=== PATIENT | female | born 1960 | race Caucasian/White ===

== ENCOUNTER 2016-08-15 13:25 | Outpatient (RCR) | payer OTHER ==
--- OUTSIDE RECORDS SUMMARY | 2016-05-20 14:02 | XMS REPORT | Continuity of Care Document ---
Author Author [facility] Organization [facility] Address Unknown Phone Unavailable Care Team Providers Care Sharepoint Application Architect Name Role Phone Marquis Castanon PCP [phone] Source Comments Some departments are not documenting in the electronic medical record. If you do not see the information that you expected, contact Release of Information in the Health Information Management department at [phone] for further assistance in locating additional records.[facility] Active Allergies and Adverse Reactions No Known Allergies Current Medications Prescription Sig. Disp. Refills Start End Date Status Date exemestane (AROMASIN) 25 Take 25 mg by mouth Active mg tab daily. Take after a meal. losartan (COZAAR) 25 mg Take 25 mg by mouth Active tablet daily. PARoxetine (PAXIL) 20 mg Take 20 mg by mouth twice Active tablet daily. MULTIVITS-MIN/IRON/FA/LUT Take by mouth daily. Active EIN (CENTRUM SILVER WOMEN PO) [id number] PO Take 333 mg by mouth Active daily. Active Problems Not on file Social History Tobacco Use Types Packs/Day Years Used Date Passive Smoke Exposure - Never Smoker Alcohol Use Drinks/Week oz/Week Comments Yes 1 Glasses of 6.6 wine 10 Cans of beer Last Filed Vital Signs Vital Sign Reading Time Taken Blood Pressure 123/84 05/31/2015 12:45 PM CDT Pulse 82 05/31/2015 12:45 PM CDT Temperature 36.7 C (98.1 F) 05/31/2015 12:45 PM CDT Respiratory Rate 16 05/31/2015 12:45 PM CDT Height 1.608 m (5' 3.31") 05/31/2015 12:45 PM CDT Weight 82.918 kg (182 lb 12.8 05/31/2015 12:45 PM CDT oz) Body Mass Index 32.07 05/31/2015 12:45 PM CDT Oxygen Saturation 97% 05/31/2015 12:45 PM CDT Plan of Care Health Maintenance Due Date Last Done Comments Physical (Comprehensive) 1968 Exam Pertussis Vaccine 1972 Tetanus Vaccine 1978 Cervical Cancer Screening 1982 Breast Cancer Screening 2001 Colorectal Cancer 11/11/2011 Screening Influenza Vaccine 04/11/2016 Results from Last 3 Months Not on file
[2016-07-18 10:12] LABS: BASOPHILS # (AUTO) 0.1 10^3/uL (0.0-0.1); BASOPHILS % (AUTO) 1 % (0-10); EOSINOPHILS # (AUTO) 0.1 10^3/uL (0.0-0.3); EOSINOPHILS % (AUTO) 2 % (0-10); LYMPHOCYTES # (AUTO) 1.3 X 10^3 (1.0-4.0); LYMPHOCYTES % (AUTO) 25 % (12-44); MEAN CORPUSCULAR HEMOGLOBIN 31 PG (25-34); MEAN CORPUSCULAR HGB CONC 35 G/DL (32-36); MEAN CORPUSCULAR VOLUME 90 FL (80-99); MEAN PLATELET VOLUME 8.6 FL (7.4-10.4); MONOCYTES # (AUTO) 0.5 X 10^3 (0.0-1.0); MONOCYTES % (AUTO) 9 % (0-12); NEUTROPHILS # (AUTO) 3.3 X 10^3 (1.8-7.8); NEUTROPHILS % (AUTO) 63 % (42-75); PLATELET COUNT 264 10^3/uL (130-400); RED BLOOD COUNT 4.78 10^6/uL (4.35-5.85); RED CELL DISTRIBUTION WIDTH 12.7 % (10.0-14.5); WHITE BLOOD COUNT 5.2 10^3/uL (4.3-11.0)
[2016-07-18 10:50] LABS: ALANINE AMINOTRANSFERASE 41 U/L (0-55); ALBUMIN 4.2 G/DL (3.2-4.5); ANION GAP 11 MMOL/L (5-14); ASPARTATE AMINO TRANSFERASE 48 U/L (5-34); BILIRUBIN,TOTAL 0.6 MG/DL (0.1-1.0); BLOOD UREA NITROGEN 16 MG/DL (7-18); BUN/CREATININE RATIO 20; CALCIUM 9.4 MG/DL (8.5-10.1); CARBON DIOXIDE 22 MMOL/L (21-32); CHLORIDE 106 MMOL/L (98-107); GFR ESTIMATED > 60; GLUCOSE 128 MG/DL (70-105); SODIUM 139 MMOL/L (135-145); TOTAL PROTEIN 7.2 G/DL (6.4-8.2)
[~2016-08-15 13:25] MED LIST: CALC-656 PO; CYCL10TA9 PO; HYDR-3730 PO; LOSA25TA5 PO; MULT-608 PO; NF-ESOM40C PO; OMEP-10 PO; OXYC-12 PO; PARO20TA57 PO; PARO40TA2 PO; SCR1T1 PO
== END 2016-08-18 | disposition home or self-care (01) ==
LOC: ONC 13:25
PROVIDERS: ATTEND Internal Medicine Hematology & Oncology
DX: C50.312 Malignant neoplasm of lower-inner quadrant of left female breast (principal); M81.0 Age-related osteoporosis without current pathological fracture; I10 Essential (primary) hypertension; R00.0 Tachycardia, unspecified; E66.9 Obesity, unspecified; Z68.32 Body mass index [BMI] 32.0-32.9, adult; Z17.0 Estrogen receptor positive status [ER+]; Z79.811 Long term (current) use of aromatase inhibitors; Z79.899 Other long term (current) drug therapy; Z92.3 Personal history of irradiation; Z45.2 Encounter for adjustment and management of vascular access device
CPT/HCPCS: 36591; 80053; 85025; 96523; 99213

== ENCOUNTER → 2016-11-18 | Outpatient (CLI) | payer OTHER ==
--- NOTE | 2016-11-18 14:19 | Diagnostic Imaging Report ---
Bilateral diagnostic mammogram. The current study was also evaluated with a Computer Aided Detection (CAD) system. INDICATION: Followup lumpectomy site fullness. FINDINGS: In the medial aspect of the left breast, there is a lumpectomy site with mass-like asymmetry seen. This is slightly less prominent compared to the prior exams with smooth margins and is most likely related to postoperative seroma. Background heterogeneously dense parenchyma is seen in both breasts with no definite change. There is a biopsy clip anterior to the lumpectomy site in the medial aspect of the left breast. IMPRESSION: Stable mammographic findings with likely postoperative seroma in the medial aspect of the left breast. Annual screening mammogram recommended. ACR BI-RADS Category 2: Benign findings. Result letter will be mailed to the patient. Note: At least 10% of breast cancer is not imaged by mammography. Dictated by: Dictated on workstation # [id number]
== END ==
LOC: RAD 09:19
PROVIDERS: ATTEND Internal Medicine Hematology & Oncology
DX: C50.312 Malignant neoplasm of lower-inner quadrant of left female breast (principal); N61.0 Mastitis without abscess; N64.89 Other specified disorders of breast; Z98.890 Other specified postprocedural states
CPT/HCPCS: 77066

== ENCOUNTER 2016-12-06 10:26 | Outpatient (RCR) | payer OTHER ==
--- OUTSIDE RECORDS SUMMARY | 2016-09-13 10:20 | XMS REPORT | Continuity of Care Document ---
Author Author [facility] Organization [facility] Address Unknown Phone Unavailable Care Team Providers Care Walnut Dehydrator Operator Name Role Phone Marquis Castanon PCP [phone] Source Comments Some departments are not documenting in the electronic medical record. If you do not see the information that you expected, contact Release of Information in the Health Information Management department at [phone] for further assistance in locating additional records.[facility] Active Allergies and Adverse Reactions No [...] daily. Active EIN (CENTRUM SILVER WOMEN PO) [id number] PO Take 333 mg by mouth Active [...]
[2016-10-10 09:49] LABS: BASOPHILS # (AUTO) 0.1 10^3/uL (0.0-0.1); BASOPHILS % (AUTO) 1 % (0-10); EOSINOPHILS # (AUTO) 0.2 10^3/uL (0.0-0.3); EOSINOPHILS % (AUTO) 3 % (0-10); LYMPHOCYTES # (AUTO) 1.3 X 10^3 (1.0-4.0); LYMPHOCYTES % (AUTO) 27 % (12-44); MEAN CORPUSCULAR HEMOGLOBIN 31 PG (25-34); MEAN CORPUSCULAR HGB CONC 34 G/DL (32-36); MEAN CORPUSCULAR VOLUME 91 FL (80-99); MEAN PLATELET VOLUME 8.9 FL (7.4-10.4); MONOCYTES # (AUTO) 0.5 X 10^3 (0.0-1.0); MONOCYTES % (AUTO) 10 % (0-12); NEUTROPHILS # (AUTO) 2.9 X 10^3 (1.8-7.8); NEUTROPHILS % (AUTO) 59 % (42-75); PLATELET COUNT 247 10^3/uL (130-400); RED BLOOD COUNT 4.69 10^6/uL (4.35-5.85); WHITE BLOOD COUNT 4.9 10^3/uL (4.3-11.0)
[2016-10-10 10:24] LABS: ALANINE AMINOTRANSFERASE 26 U/L (0-55); ALBUMIN 4.5 G/DL (3.2-4.5); ANION GAP 11 MMOL/L (5-14); ASPARTATE AMINO TRANSFERASE 37 U/L (5-34); BILIRUBIN,TOTAL 0.6 MG/DL (0.1-1.0); BLOOD UREA NITROGEN 14 MG/DL (7-18); BUN/CREATININE RATIO 16; CALCIUM 9.4 MG/DL (8.5-10.1); CARBON DIOXIDE 24 MMOL/L (21-32); CHLORIDE 106 MMOL/L (98-107); CREATININE SERUM 0.86 MG/DL (0.60-1.30); GFR ESTIMATED > 60; GLUCOSE 114 MG/DL (70-105); POTASSIUM 4.1 MMOL/L (3.6-5.0); SODIUM 141 MMOL/L (135-145); TOTAL PROTEIN 7.2 G/DL (6.4-8.2)
[~2016-12-06 10:26] MED LIST changes: +DENOSUMAB 60 MG/1 ML (PROLIA) SQ SCH
== END 2016-12-12 | disposition home or self-care (01) ==
LOC: ONC 10:26
PROVIDERS: ATTEND Internal Medicine Hematology & Oncology
DX: C50.312 Malignant neoplasm of lower-inner quadrant of left female breast (principal); M81.0 Age-related osteoporosis without current pathological fracture; I10 Essential (primary) hypertension; R00.0 Tachycardia, unspecified; E66.9 Obesity, unspecified; Z68.32 Body mass index [BMI] 32.0-32.9, adult; Z17.0 Estrogen receptor positive status [ER+]; Z79.811 Long term (current) use of aromatase inhibitors; Z79.899 Other long term (current) drug therapy; Z92.3 Personal history of irradiation; Z45.2 Encounter for adjustment and management of vascular access device
CPT/HCPCS: 36591; 80053; 85025; 96372; 96523; 99213

== ENCOUNTER 2017-01-30 09:54 | Outpatient (RCR) | payer OTHER ==
[~2017-01-30 09:54] MED LIST changes: -DENOSUMAB 60 MG/1 ML (PROLIA) SQ SCH
== END 2017-03-12 15:49 | disposition home or self-care (01) ==
LOC: ONC 09:54
PROVIDERS: ATTEND Internal Medicine Hematology & Oncology
DX: C50.312 Malignant neoplasm of lower-inner quadrant of left female breast (principal); M81.0 Age-related osteoporosis without current pathological fracture; I10 Essential (primary) hypertension; R00.0 Tachycardia, unspecified; E66.9 Obesity, unspecified; Z68.32 Body mass index [BMI] 32.0-32.9, adult; Z17.0 Estrogen receptor positive status [ER+]; Z79.811 Long term (current) use of aromatase inhibitors; Z79.899 Other long term (current) drug therapy; Z92.3 Personal history of irradiation; Z45.2 Encounter for adjustment and management of vascular access device
CPT/HCPCS: 96523

== ENCOUNTER 2017-04-24 13:05 | Outpatient (RCR) | payer OTHER | END 2017-05-10 | disposition home or self-care (01) | LOC: ONC 13:05 | PROVIDERS: ATTEND Internal Medicine Hematology & Oncology | DX: C50.312 Malignant neoplasm of lower-inner quadrant of left female breast (principal); M81.0 Age-related osteoporosis without current pathological fracture; N61.0 Mastitis without abscess; N64.89 Other specified disorders of breast; I10 Essential (primary) hypertension; R00.0 Tachycardia, unspecified; E66.9 Obesity, unspecified; Z68.32 Body mass index [BMI] 32.0-32.9, adult; Z17.0 Estrogen receptor positive status [ER+]; Z79.811 Long term (current) use of aromatase inhibitors; Z79.899 Other long term (current) drug therapy; Z92.3 Personal history of irradiation; Z45.2 Encounter for adjustment and management of vascular access device; Z98.890 Other specified postprocedural states | CPT/HCPCS: 96523 ==

== ENCOUNTER → 2017-07-31 | Outpatient (CLI) | payer OTHER ==
--- NOTE | 2017-07-31 12:23 | Diagnostic Imaging Report ---
EXAMINATION: DEXA scan. INDICATION: Osteopenia. TECHNIQUE: Bone mineral density estimated based on dual energy radiography over the lumbar spine and femoral necks, was performed. FINDINGS: The lumbar spine T-score is -2.1. This is 6% increased density measurement compared to previous exam of 02/01/2016. The femoral neck T score is -0.7 on the left and -1 on the right side. This is 1.8% increased density measurement compared to prior exam. IMPRESSION: Osteopenia. Dictated by: Dictated on workstation # [id number]
== END ==
LOC: RAD 09:06
PROVIDERS: ATTEND Internal Medicine Hematology & Oncology
DX: M85.88 Other specified disorders of bone density and structure, other site (principal); C50.312 Malignant neoplasm of lower-inner quadrant of left female breast
CPT/HCPCS: 77080

== ENCOUNTER 2017-08-08 13:23 | Outpatient (RCR) | payer OTHER ==
[2017-05-14 11:16] LABS: BASOPHILS # (AUTO) 0.1 10^3/uL (0.0-0.1); BASOPHILS % (AUTO) 1 % (0-10); EOSINOPHILS # (AUTO) 0.2 10^3/uL (0.0-0.3); EOSINOPHILS % (AUTO) 2 % (0-10); HEMATOCRIT 43 % (35-52); HEMOGLOBIN 14.5 G/DL (11.5-16.0); LYMPHOCYTES # (AUTO) 1.5 X 10^3 (1.0-4.0); LYMPHOCYTES % (AUTO) 22 % (12-44); MEAN CORPUSCULAR HEMOGLOBIN 31 PG (25-34); MEAN CORPUSCULAR HGB CONC 34 G/DL (32-36); MEAN CORPUSCULAR VOLUME 91 FL (80-99); MEAN PLATELET VOLUME 8.8 FL (7.4-10.4); MONOCYTES # (AUTO) 0.5 X 10^3 (0.0-1.0); MONOCYTES % (AUTO) 8 % (0-12); NEUTROPHILS # (AUTO) 4.6 X 10^3 (1.8-7.8); NEUTROPHILS % (AUTO) 67 % (42-75); PLATELET COUNT 265 10^3/uL (130-400); RED BLOOD COUNT 4.68 10^6/uL (4.35-5.85); RED CELL DISTRIBUTION WIDTH 12.2 % (10.0-14.5); WHITE BLOOD COUNT 6.8 10^3/uL (4.3-11.0)
[2017-05-14 11:37] LABS: ALANINE AMINOTRANSFERASE 25 U/L (0-55); ALBUMIN 4.1 GM/DL (3.2-4.5); ALKALINE PHOSPHATASE 71 U/L (40-136); BILIRUBIN,TOTAL 0.6 MG/DL (0.1-1.0); BUN/CREATININE RATIO 19; CALCIUM 9.8 MG/DL (8.5-10.1); CARBON DIOXIDE 26 MMOL/L (21-32); CHLORIDE 103 MMOL/L (98-107); CREATININE SERUM 0.75 MG/DL (0.60-1.30); GFR ESTIMATED > 60; GLUCOSE 105 MG/DL (70-105); POTASSIUM 3.9 MMOL/L (3.6-5.0); SODIUM 137 MMOL/L (135-145); TOTAL PROTEIN 7.4 GM/DL (6.4-8.2)
[~2017-08-08 13:23] MED LIST changes: +DENOSUMAB 60 MG/1 ML (PROLIA) CANCER CTR SQ SCH
[2017-08-08 13:56] LABS: BASOPHILS # (AUTO) 0.1 10^3/uL (0.0-0.1); BASOPHILS % (AUTO) 1 % (0-10); EOSINOPHILS # (AUTO) 0.2 10^3/uL (0.0-0.3); EOSINOPHILS % (AUTO) 3 % (0-10); HEMATOCRIT 43 % (35-52); HEMOGLOBIN 14.7 G/DL (11.5-16.0); LYMPHOCYTES # (AUTO) 1.7 X 10^3 (1.0-4.0); LYMPHOCYTES % (AUTO) 28 % (12-44); MEAN CORPUSCULAR HEMOGLOBIN 32 PG (25-34); MEAN CORPUSCULAR HGB CONC 34 G/DL (32-36); MEAN CORPUSCULAR VOLUME 93 FL (80-99); MONOCYTES # (AUTO) 0.5 X 10^3 (0.0-1.0); MONOCYTES % (AUTO) 8 % (0-12); NEUTROPHILS # (AUTO) 3.8 X 10^3 (1.8-7.8); NEUTROPHILS % (AUTO) 61 % (42-75); PLATELET COUNT 258 10^3/uL (130-400); RED BLOOD COUNT 4.65 10^6/uL (4.35-5.85); RED CELL DISTRIBUTION WIDTH 13.1 % (10.0-14.5); WHITE BLOOD COUNT 6.2 10^3/uL (4.3-11.0)
[2017-08-08 14:24] LABS: ALANINE AMINOTRANSFERASE 49 U/L (0-55); ALBUMIN 4.3 GM/DL (3.2-4.5); ALKALINE PHOSPHATASE 79 U/L (40-136); BILIRUBIN,TOTAL 0.5 MG/DL (0.1-1.0); BUN/CREATININE RATIO 19; CALCIUM 10.4 MG/DL (8.5-10.1); CARBON DIOXIDE 28 MMOL/L (21-32); CHLORIDE 103 MMOL/L (98-107); GFR ESTIMATED > 60; GLUCOSE 87 MG/DL (70-105); POTASSIUM 3.9 MMOL/L (3.6-5.0); SODIUM 142 MMOL/L (135-145); TOTAL PROTEIN 7.7 GM/DL (6.4-8.2)
== END 2017-08-12 | disposition home or self-care (01) ==
LOC: ONC 13:23
PROVIDERS: ATTEND Internal Medicine Hematology & Oncology
DX: C50.312 Malignant neoplasm of lower-inner quadrant of left female breast (principal); M81.0 Age-related osteoporosis without current pathological fracture; I10 Essential (primary) hypertension; R00.0 Tachycardia, unspecified; E66.9 Obesity, unspecified; Z68.32 Body mass index [BMI] 32.0-32.9, adult; Z17.0 Estrogen receptor positive status [ER+]; Z79.811 Long term (current) use of aromatase inhibitors; Z79.899 Other long term (current) drug therapy; Z92.3 Personal history of irradiation; Z45.2 Encounter for adjustment and management of vascular access device; N61.0 Mastitis without abscess; N64.89 Other specified disorders of breast; Z98.890 Other specified postprocedural states
CPT/HCPCS: 36591; 80053; 85025; 96372; 96523

== ENCOUNTER 2017-09-04 05:30 | Outpatient (CLI) | payer OTHER ==
[~2017-09-04] VITALS: Ht 162.6 cm; Wt 78.9 kg
[~2017-09-04 05:30] MED LIST changes: -DENOSUMAB 60 MG/1 ML (PROLIA) CANCER CTR SQ SCH
[2017-09-04] MEDS ORDERED: CALC-927 PO (09:32)
[2017-09-04] MEDS ORDERED: EXEM25TA4 PO (09:32)
[2017-09-04] MEDS ORDERED: LOSA25TA21 PO (09:32)
[2017-09-04] MEDS ORDERED: MULT1CAP27 PO (09:32)
[2017-09-04] MEDS ORDERED: METO-387 PO (09:32)
[2017-09-04] MEDS ORDERED: VNL37.5T PO (09:32)
[2017-09-04] MEDS ORDERED: CALC-250 PO (09:32)
== END 2017-09-04 09:36 ==
LOC: PREOP 05:30
PROVIDERS: ATTEND Surgery
DX: Z01.818 Encounter for other preprocedural examination (principal); Z12.11 Encounter for screening for malignant neoplasm of colon

== ENCOUNTER 2017-09-10 10:38 | Day surgery (SDC) | payer OTHER ==
[~2017-09-10] VITALS: Ht 162.6 cm; Wt 78.9 kg
[~2017-09-10 10:38] MED LIST changes: +CALC-250 PO; +CALC-927 PO; +EXEM25TA4 PO; +LOSA25TA21 PO; +METO-387 PO; +MULT1CAP27 PO; +VNL37.5T PO
--- NOTE | 2017-09-10 10:44 | Progress Note-Pre Operative ---
Pre-Operative Progress Note H&P Reviewed The H&P was reviewed, patient examined and no changes noted. Date Seen by Provider: Sep 10, 2017 Time Seen by Provider: 10:40 Date H&P Reviewed: Sep 10, 2017 Time H&P Reviewed: 10:40 Pre-Operative Diagnosis: screening, family hx ca MEENA PUENTES MD Sep 10, 2017 10:44 am
--- NOTE | 2017-09-10 10:44 | Conscious Sedation/ASA ---
Conscious Sedation Pre-Proced Time Reviewed: 10:40 ASA Class: 2 Airway Mallampati Classification: (craig appropriate class) I. II. III, IV Lungs Heart ASA score ASA 1: a normal healthy patient ASA 2: a patient with a mild systemic disease (mid diabetes, controlled hypertension, obesity ASA 3: a patient with a severe systemic disease that limits activity (angina , COPD, prior Myocardial infarction) ASA 4: a patient with an incapacitating disease that is a constant threat to life (CHF, renal failure) ASA 5: a moribund patient not expected to survive 24 hrs. (ruptured aneurysm) ASA 6: a declared brain patient whose organs are being harvested. For emergent operations, add the letter E after the classification Grade 2 Sedation Plan: Analgesia, Amnesia, Plan communicated to team members, Discussed options with patient/fam, Discussed risks with patient/fam Note The patient is an appropriate candidate to undergo the planned procedure, sedation, and anesthesia. The patient immediately re-assessed prior to indication. MEENA PUENTES MD Sep 10, 2017 10:44 am
--- OUTSIDE RECORDS SUMMARY | 2017-09-10 10:54 | XMS REPORT | Clinical Summary ---
Author Author [facility] Organization [facility] Address Unknown Phone Unavailable Care Team Providers Care Pie Icer Machine Name Role Phone Carolina Castanon MD PCP Audra Vuong BUSINESS DEVELOPMENT ASSISTANT-[facility] [employer] Unavailable Stefani Valles MD Unavailable Source Comments Some departments are not documenting in the electronic medical record. If you do not see the information that you expected, contact Release of Information in the Health Information Management department at [phone] for further assistance in locating additional records.[facility] Allergies No Known Allergies Current Medications Prescription Sig. [...] daily. Active EIN (CENTRUM SILVER WOMEN PO) [id number] PO Take 333 mg by mouth Active daily. Active Problems Not on file Family History Medical History Relation Name Comments Depression Brother Diabetes Brother Hypertension Brother Depression Father High Cholesterol Father Arthritis-osteo Maternal Aunt Arthritis-rheumatoid Maternal Aunt Cancer-Breast Maternal Aunt Diabetes Maternal Aunt Depression Maternal Grandfather Cancer Maternal Grandmother Arthritis-osteo Maternal Uncle Arthritis-rheumatoid Maternal Uncle Arthritis-osteo Mother Arthritis-rheumatoid Mother Depression Mother Hypertension Mother Arthritis-osteo Paternal Grandmother Hypertension Paternal Grandmother Cancer-Colon Paternal Uncle Depression Paternal Uncle Arthritis-osteo Sister Depression Sister Relation Name Status Comments Brother Father Maternal Aunt Maternal Grandfather Maternal Grandmother Maternal Uncle Mother Paternal Grandmother Paternal Uncle Sister Social History Tobacco Use Types Packs/Day Years Used Date Passive Smoke Exposure - Never Smoker Alcohol Use Drinks/Week oz/Week Comments Yes 1 Glasses of 6.6 wine 10 Cans of beer Sex Assigned at Date Recorded Not on file Last Filed Vital Signs Vital Sign Reading Time Taken Blood Pressure 123/84 05/31/2015 12:45 PM CDT Pulse 82 05/31/2015 12:45 PM CDT Temperature 36.7 C (98.1 F) 05/31/2015 12:45 PM CDT Respiratory Rate 16 05/31/2015 12:45 PM CDT Oxygen Saturation 97% 05/31/2015 12:45 PM CDT Inhaled Oxygen - - Concentration Weight 82.9 kg (182 lb 12.8 oz) 05/31/2015 12:45 PM CDT Height 160.8 cm (5' 3.31") 05/31/2015 12:45 PM CDT Body Mass Index 32.07 05/31/2015 12:45 PM CDT Plan of Treatment Health Maintenance Due Date Last Done Comments HEPATITIS C SCREENING 1961 PHYSICAL (COMPREHENSIVE) 1968 EXAM PERTUSSIS VACCINE 1972 TETANUS VACCINE 1978 CERVICAL CANCER SCREENING 11/11/1991 BREAST CANCER SCREENING 2001 COLORECTAL CANCER 11/11/2011 SCREENING INFLUENZA VACCINE 03/11/2017 Results Not on filefrom Last 3 Months
--- OUTSIDE RECORDS SUMMARY | 2017-09-10 10:57 | XMS REPORT | CCD ---
Author Author Carolina Castanon Organization Carolina Castanon MD, [facility] Address [address] [place] [address] Phone Care Team Providers Care Wax Bleacher Name Role Phone Carolina Castanon PP Unavailable CCM Unavailable Summary Purpose Interface Exchange Insurance Providers Payer name Policy type / Coverage type Covered libertarian ID Effective Begin Date Effective End Date [employer] [id number] 2017 Unknown Family history Grandmother Diagnosis Age At Onset Heart disease Unknown Sister Diagnosis Age At Onset Depression Unknown Osteoporosis Unknown Son Diagnosis Age At Onset No Family Disease Entered N/A Mother Diagnosis Age At Onset Arthritis Unknown Hypertension Unknown Osteoporosis Unknown Depression Unknown Father Diagnosis Age At Onset Depression Unknown Brother Diagnosis Age At Onset Depression Unknown Daughter Diagnosis Age At Onset No Family Disease Entered N/A Social History Social History Element Codes Description Effective Dates Employment Unknown 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 Unknown Has never used illegal drugs 12/03/2011 Marital status Unknown 11/27/2011 Number of children Unknown 2 11/27/[address]: 524199 Currently drinks alcohol 6 drinks per week 11/27/2011 Allergies, Adverse Reactions, Alerts Allergies, Adverse Reactions, Alerts data not found Past Medical History Illness Codes Condition Status Onset Date Resolved Date Encounter for general adult medical examination without abnormal findings ICD-9: V70.0 ICD-10: Z00.00 Active 02/25/2016 Unknown Essential (primary) hypertension ICD-9: 401.1 ICD-10: I10 Active 08/25/2016 Unknown Intercostal pain ICD-9 : 786.59 ICD-10: R07.82 Active 08/25/2016 Unknown Essential (primary) hypertension ICD-9: 401.9 ICD-10: I10 Active 05/01/2016 Unknown VACCIN FOR INFLUENZA ICD-9: V04.81 ICD-10: Z23 Active 05/01/2016 Unknown Malignant neoplasm of unspecified site of left female breast ICD-9: 174.9 ICD-10: C50.912 Active 05/23/2015 Unknown Other specified disorders of breast ICD-9: 611.89 ICD-10: N64.89 Active 05/23/2015 Unknown Basal cell carcinoma of anterior chest ICD-9: 173.51 Active Unknown Changing skin lesion ICD-9: 709.9 Active 11/17/2014 Unknown Color change in pigmented skin lesion ICD-9: 216.9 Active 11/17 Unknown Skin change ICD-9: 782.9 Active 11/17/2014 Unknown Hypertension Unknown Active 11/09/2014 Unknown ESSENTIAL HYPERTENSION ICD-9: 401.9 Active 11/09/2014 Unknown ROUTINE GYNE EXAM ICD- 9: V72.31 Active 11/09/2014 Unknown Acute maxillary sinusitis ICD-9: 461.0 Active 07/14/2014 Unknown COUGH ICD-9: 786.2 Active 07/14/2014 Unknown Generalized anxiety disorder ICD-9: 300.02 Active 03/07/2014 Unknown ANXIETY STATE ICD-9: 300.00 Active 02/03/2014 Unknown DEPRESSIVE DISORDER NEC ICD-9: 311 Active 02/03/2014 Unknown Acute sinusitis ICD-9 : 461.9 Active 08/09/2013 Unknown Rash ICD-9: 782.1 Active 08/09/2013 Unknown ESOPHAGEAL REFLUX ICD- 9: 530.81 Active 07/13/2012 Unknown Laboratory examination ordered as part of a routine general medical examination ICD-9: V72.62 Active 12/10/2011 Unknown Depression Unknown Active 12/03/2011 Unknown osteopenia Unknown Active 12/03/2011 Unknown restless leg syndrome Unknown Active 12/03/2011 Unknown Torticollis, acquired ICD-9: 723.5 Active 12/03/2011 Unknown Problems Condition Codes Effective Dates Condition Status Encounter for general adult medical examination without abnormal findings ICD-9: V70.0 ICD-10: Z00.00 02/25/2016 Active Essential (primary) hypertension ICD-9: 401.1 ICD-10: I10 08/25/2016 Active Intercostal pain ICD-9 : 786.59 ICD-10: R07.82 08/25/2016 Active Essential (primary) hypertension ICD-9: 401.9 ICD-10: I10 05/01/2016 Active VACCIN FOR INFLUENZA ICD-9: V04.81 ICD-10: Z23 05/01/2016 Active Malignant neoplasm of unspecified site of left female breast ICD-9: 174.9 ICD-10: C50.912 05/23/2015 Active Other specified disorders of breast ICD-9: 611.89 ICD-10: N64.89 05/23/2015 Active Basal cell carcinoma of anterior chest ICD-9: 173.51 11/28/2014 Active Changing skin lesion ICD-9: 709.9 11/17/2014 Active Color change in pigmented skin lesion ICD-9: 216.9 11/17/2014 Active Skin change ICD-9: 782.9 11/17/2014 Active Hypertension Unknown 11/09/2014 Active ESSENTIAL HYPERTENSION ICD-9: 401.9 11/09/2014 Active ROUTINE GYNE EXAM ICD- 9: V72.31 11/09/2014 Active Acute maxillary sinusitis ICD-9: 461.0 07/14/2014 Active COUGH ICD-9: 786.2 07/14/2014 Active Generalized anxiety disorder ICD-9: 300.02 03/07/2014 Active ANXIETY STATE ICD-9: 300.00 02/03/2014 Active DEPRESSIVE DISORDER NEC ICD-9: 311 02/03/2014 Active Acute sinusitis ICD-9 : 461.9 08/09/2013 Active Rash ICD-9: 782.1 08/09/2013 Active ESOPHAGEAL REFLUX ICD- 9: 530.81 07/13/2012 Active Laboratory examination ordered as part of a routine general medical examination ICD-9: V72.62 12/10/2011 Active Depression Unknown 12/03/2011 Active osteopenia Unknown 12/03/2011 Active restless leg syndrome Unknown 12/03/2011 Active Torticollis, acquired ICD-9: 723.5 12/03/2011 Active Medications Medication Codes Instructions Start Date Stop Date Status Fill Instructions venlafaxine 37.5 mg tablet RxNorm: 092637 1 Tablet(s) PO BID 08/22/2018 Active please send future request for refill of venlafxine to dr. castanon, dr. mayorga is no longer her provider - metoprolol tartrate 25 mg tablet RxNorm: 166733 TAKE 1/2 TABLET TWICE A DAY 05/16/2017 05/10/2018 Active losartan 25 mg tablet RxNorm: 189461 TAKE 1 TABLET EVERY EVENING 05/16/2017 05/10/2018 Active losartan 25 mg tablet RxNorm: 524973 TAKE 1 TABLET EVERY EVENING 05/16/2017 05/15/2017 Inactive metoprolol tartrate 25 mg tablet RxNorm: 990294 TAKE 1/2 TABLET TWICE A DAY 05/14/2017 05/08/2018 Active metoprolol tartrate 25 mg tablet RxNorm: 091195 Tablet(s) TAKE 1/2 TABLET TWICE A DAY 05/14/2017 05/15/2017 Inactive losartan 25 mg tablet RxNorm: 387429 TAKE 1 TABLET EVERY EVENING 05/14/2017 05/15/2017 Inactive losartan 25 mg tablet RxNorm: 791450 TAKE 1 TABLET EVERY EVENING 05/14/2017 05/13/2017 Inactive metoprolol tartrate 25 mg tablet RxNorm: 292570 TAKE 1/2 TABLET TWICE A DAY 05/14/2017 05/13/2017 Inactive metoprolol tartrate 25 mg tablet RxNorm: 283249 TAKE 1/2 TABLET TWICE A DAY 05/14/2017 05/13/2017 Inactive losartan 25 mg tablet RxNorm: 877323 Tablet(s) 1 TABLET(S) PO QPM 05/22/2016 05/13/2017 Inactive metoprolol tartrate 25 mg tablet RxNorm: 495677 1/2 Tablet(s) PO BID Hold if SBP less than 100 or HR less than 60 05/22/2016 05/13/2017 Inactive Hold if SBP less than 100 or HR less than 60 losartan 25 mg tablet RxNorm: 797337 Tablet(s) 1 TABLET(S) PO QPM 11/24/2015 05/21/2016 Inactive metoprolol tartrate 25 mg tablet RxNorm: 810453 1/2 Tablet(s) PO BID Hold if SBP less than 100 or HR less than 60 11/02/2015 05/21/2016 Inactive Hold if SBP less than 100 or HR less than 60 Paxil 40 mg tablet RxNorm: 581670 1 TABLET(S) PO DAILY 201511/01/2015 Inactive metoprolol tartrate 25 mg tablet RxNorm: 376223 1 Tablet(s) PO daily Hold if SBP less than 100 or HR less than 60 09/25/2015 11/01/2015 Inactive Hold if SBP less than 100 or HR less than 60 metoprolol tartrate 25 mg tablet RxNorm: 852369 1/2 TABLET(S) PO DAILY HOLD IF SBP LESS THAN 100 OR HR LESS THAN 70 09/11/2015 10/10/2015 Inactive Hold if SBP less than 100 or HR less than 70 metoprolol tartrate 25 mg tablet RxNorm: 752206 1/2 Tablet(s) PO daily Hold if SBP less than 100 or HR less than 70 09/11/2015 09/24/2015 Inactive Hold if SBP less than 100 or HR less than 70 metoprolol tartrate 25 mg tablet RxNorm: 558669 1/2 Tablet(s) PO daily Hold if SBP less than 100 or HR less than 70 08/10/2015 09/08/2015 Inactive Hold if SBP less than 100 or HR less than 70 losartan 25 mg tablet RxNorm: 315770 1 TABLET(S) PO QPM 201411/23/2015 Inactive Paxil 40 mg tablet RxNorm: 673557 1 TABLET(S) PO DAILY 201410/08/2015 Inactive losartan 25 mg tablet RxNorm: 630027 1 Tablet(s) PO QPM 201405/29/2015 Inactive mupirocin 2 % topical ointment RxNorm: 040487 1 Application TOP BID 11/09/2014 12/08/2014 Inactive Paxil 40 mg tablet RxNorm: 898118 1 TABLET(S) PO DAILY 201301/22/2015 Inactive Flonase 50 mcg/actuation nasal spray,suspension RxNorm: 530478 1 SPRAY NASAL DAILY 08/08/2014 01/22/2015 Inactive ceftriaxone 500 mg solution for injection RxNorm: 732990 Inj 07/14/2014 Inactive Zithromax Z-Sukhjinder 250 mg tablet RxNorm: 838729 1 Tablet(s) PO UD 07/14/2014 07/18/2014 Inactive zpack Flonase 50 mcg/actuation nasal spray,suspension RxNorm: 234031 1 Blakeslee NASAL daily 07/14/2014 07/27/2014 Inactive Kenalog 40 mg/mL suspension for injection RxNorm: 7180042 Milliliter(s) Inj 07/14/2014 07/14/2014 Inactive Ativan 1 mg tablet RxNorm: 726476 1 Tablet(s) PO TID as needed anxiety 03/07/2014 11/08/2014 Inactive Xanax 0.5 mg tablet RxNorm: 903440 1 Tablet(s) PO QDAY PRN 03/07/2014 Inactive Paxil 40 mg tablet RxNorm: 818308 1 Tablet(s) PO daily 201308/01/2014 Inactive Paxil 20 mg tablet RxNorm: 611300 1 Tablet(s) PO daily TAKE 1 TABLET BY MOUTH DAILY 08/23/2013 02/02/2014 Inactive Paxil 20 mg tablet RxNorm: 552604 Tablet(s) PO TAKE 1 TABLET BY MOUTH DAILY 08/23/2013 08/22/2013 Inactive nystatin-triamcinolone 100,000 unit/g-0.1 % topical cream RxNorm: 2791026 1 Application TOP BID 08/09/2013 08/22/2013 Inactive Flonase 50 mcg/actuation nasal spray,suspension RxNorm: 0717930 2 [place]akeslee NASAL daily 08/09/2013 08/15/2013 Inactive omeprazole 20 mg capsule,delayed release RxNorm: 414288 1 Capsule(s) PO daily 07/20/2012 01/15/2013 Inactive omeprazole 20 mg capsule,delayed release RxNorm: 258152 1 Capsule(s) PO daily 07/20/2012 07/19/2012 Inactive Paxil 20 mg tablet RxNorm: 712953 1 Tablet(s) PO daily 201108/13/2013 Inactive TAKE ONE TABLET BY MOUTH DAILY Carafate 1 gram tablet RxNorm: 428046 1 Tablet(s) PO QID 201108/15/2012 Inactive crush pill and make a slurry and drink qid Aciphex 20 mg tablet,delayed release RxNorm: 205544 1 Tablet(s) PO daily 07/17/2012 07/19/2012 Inactive Carafate 1 gram tablet RxNorm: 710450 1 Tablet(s) PO QID 201107/16/2012 Inactive crush pill and make a slurry and drink qid Paxil 20 mg tablet RxNorm: 361320 Tablet(s) PO 06/15/2012 07/19/2012 Inactive TAKE ONE TABLET BY MOUTH DAILY Paxil 20 mg tablet RxNorm: 350791 Tablet(s) PO 04/02/2012 06/14/2012 Inactive TAKE ONE TABLET BY MOUTH DAILY Paxil 20 mg tablet RxNorm: 231014 1 Tablet(s) PO daily 201104/01/2012 Inactive exemestane 25 mg tablet RxNorm: 303753 1 Tablet(s) PO daily No Start Date Active Vitamin D3 5,000 unit tablet RxNorm: 433836 1 Tablet(s) PO daily No Start Date Active Calcium RxNorm: 1 PO QHS No Start Date Active Aciphex 20 mg tablet,delayed release RxNorm: 731650 1 Tablet(s) PO daily No Start Date 07/16/2012 Inactive Paxil 20 mg Tab RxNorm : 381222 1 Tablet(s) PO daily No Start Date 12/02/2011 Inactive venlafaxine 37.5 mg tablet RxNorm: 440765 1 Tablet(s) PO BID No Start Date 08/27/2017 Inactive Medication Administered Medication Codes Instructions Start Date Status Kenalog 40 mg/mL suspension for injection RxNorm: 1626213 Milliliter 07/14/2014 No longer Active ceftriaxone 500 mg solution for injection RxNorm: 268755 07/14/2014 No longer Active Immunizations Vaccine Codes Date Status Influenza CVX: 141 05/02/2016 completed PPD Unknown 11/28/2014 completed Influenza CVX: 141 04/15/2011 completed Assessments Condition Codes Effective Dates Encounter for general adult medical examination without abnormal findings ICD-10: Z00.00 ICD-9: V70.0 08/28/2017 Essential (primary) hypertension ICD-10: I10 ICD-9: 401.1 08/28/2017 Intercostal pain ICD-10: R07.82 ICD-9: 786.59 08/26/2016 Essential (primary) hypertension ICD-10: I10 ICD-9: 401.9 05/02/2016 VACCIN FOR INFLUENZA ICD-10: Z23 ICD-9: V04.81 05/02/2016 Tachycardia, unspecified ICD-10: R00.0 ICD-9: 785.0 08/10/2015 Malignant neoplasm of unspecified site of left female breast ICD-10: C50.912 ICD-9: 174.9 05/24/2015 Other specified disorders of breast ICD-10: N64.89 ICD-9: 611.89 05/24/2015 Basal cell carcinoma of anterior chest ICD-9: 173.51 11/28/2014 Changing skin lesion ICD-9: 709.9 2014 Skin change ICD-9: 782.9 11/17/2014 Color change in pigmented skin lesion ICD-9: 216.9 11/17/2014 ROUTINE GYNE EXAM ICD-9: V72.31 2014 ESSENTIAL HYPERTENSION ICD-9: 401.9 11/09 COUGH ICD-9: 786.2 07/14/2014 Acute maxillary sinusitis ICD-9: 461.0 DEPRESSIVE DISORDER NEC ICD-9: 311 2013 Generalized anxiety disorder ICD-9: 300.02 03/07/2014 ANXIETY STATE ICD-9: 300.00 02/03/2014 ESOPHAGEAL REFLUX ICD-9: 530.81 2013 ROUTINE PHYSICL LAB EXAM ICD-9: V72.62 NONSPECIF SKIN ERUPT NEC ICD-9: 782.1 Acute sinusitis ICD-9: 461.9 08/09/2013 Torticollis, acquired ICD-9: 723.5 2011 Reason For Visit Reason For Visit Effective Dates Notes hypertension 08/28/2017 hypertension 08/26/2016 vaccination against influenza 05/02/2016 hypertension 02/26/2016 hypertension 11/02/2015 medication follow up 09/25/2015 hypertension 08/10/2015 office procedure 11/17/2014 well woman exam (40-65 years) 11/09/2014 sinus congestion 07/14/2014 anxiety 03/07/2014 anxiety 02/03/2014 well woman exam (40-65 years) 09/14/2013 skin lesion 08/23/2013 skin lesion 08/09/2013 fullness in the throat 07/13/2012 well woman exam (40-65 years) 12/03/2011 Pt last had a period October 2010, and again in May 2011. Pt states she is having occasional hot flashes Results Observation Observation Code Item Item Code Result Date Comp Metabolic Jlk853 NA 137 mEq/L 09/10/2016 Comp Metabolic Uhz836 K 4.2 mEq/L 09/10/2016 Comp Metabolic Soe431 CL 102 mEq/L 09/10/2016 Comp Metabolic Vll802 CO2 26.0 mEq/L 09/10/2016 Comp Metabolic Zaj400 ANION GAP 13 09/10/2016 Comp Metabolic Hls158 GLUCOSE 100 mg/dL 09/10/2016 Comp Metabolic Gby282 Creat 0.8 mg/dL 09/10/2016 Comp Metabolic Plm489 eGFR 78 ml/min/1.73m2 09/10/2016 Comp Metabolic Jtv605 BUN 16 mg/dL 09/10/2016 Comp Metabolic Hvw214 B/C Ratio 19.8 Ratio 09/10/2016 Comp Metabolic Hxs894 CALCIUM 9.5 mg/dL 09/10/2016 Comp Metabolic Ckw954 ALK PHOS 89 U/L 09/10/2016 Comp Metabolic Lxn217 AST(SGOT) 41 U/L 09/10/2016 Comp Metabolic Gbs208 ALT(SGPT) 31 U/L 09/10/2016 Comp Metabolic Jgq078 BILI T 0.6 mg/dL 09/10/2016 Comp Metabolic Wwo878 ALBUMIN 4.5 g/dL 09/10/2016 Comp Metabolic Ifx078 TPRO 7.1 g/dL 09/10/2016 Comp Metabolic Afk492 GLOB 2.6 g/dL 09/10/2016 Comp Metabolic Pik219 A/G Ratio 1.7 Ratio 09/10/2016 Comp Metabolic Kfr730 Osmo 275 mOsmo 09/10/2016 Cbc With Differential Ord2 WBC 6.50 K/ul 09/10/2016 Cbc With Differential Ord2 RBC 4.74 M/ul 09/10/2016 Cbc With Differential Ord2 HGB 15.0 g/dl 09/10/2016 Cbc With Differential Ord2 Neut% 60.1 % 09/10/2016 Cbc With Differential Ord2 HCT 43.4 % 09/10/2016 Cbc With Differential Ord2 Lymph% 27.5 % 09/10/2016 Cbc With Differential Ord2 MCV 91.6 fl 09/10/2016 Cbc With Differential Ord2 Preston% 9.5 % 09/10/2016 Cbc With Differential Ord2 MCH 31.6 pg 09/10/2016 Cbc With Differential Ord2 Eos% 2.3 % 09/10/2016 Cbc With Differential Ord2 MCHC 34.6 pg 09/10/2016 Cbc With Differential Ord2 PLT 263 K/ul 09/10/2016 Cbc With Differential Ord2 Baso% 0.6 % 09/10/2016 Cbc With Differential Ord2 RDW 12.8 % 09/10/2016 Cbc With Differential Ord2 Neut ABS# 3.90 K/ul 09/10/2016 Cbc With Differential Ord2 Lymph ABS# 1.79 K/ul 09/10/2016 Cbc With Differential Ord2 [place] ABS# 0.6 K/ul 09/10/2016 Cbc With Differential Ord2 Eos ABS# 0.2 K/ul 09/10/2016 Cbc With Differential Ord2 Baso ABS# 0.0 K/ul 09/10/2016 Lipid Ord30 CHOL 245 mg/dL 09/10/2016 Lipid Ord30 HDL 62.0 mg/dl 09/10/2016 Lipid Ord30 TRIG 125 mg/dL 09/10/2016 Lipid Ord30 LDL 158 mg/dL 09/10/2016 Lipid Ord30 C/HDL 4.0 Ratio 09/10/2016 Tsh Ord6 hTSH II 2.04 uIU/mL 09/10/2016 Free T4 Vaf659 FREE T4 0.62 ng/dL 08/10/2015 Tsh Ord6 hTSH II 1.52 uIU/mL 08/10/2015 GC/CHL PRB 8473124 CHLM PROBE NEG 2014 GC/CHL PRB 8560260 GC PROBE NEG 2014 CBC 0118630 WBC 5.0 10e9/L 09/24/2013 CBC 9663557 RBC 4.46 10e12/L 09/24/2013 CBC 0172339 HGB 14.1 g/dL 09/24/2013 CBC 6923772 HCT DET 41.3 % 09/24/2013 CBC 0834597 MCV 92.6 fL 09/24/2013 CBC 8374559 MCH 31.6 pg 09/24/2013 CBC 3019826 MCHC 34.1 g/dL 09/24/2013 CBC 9660619 PLT 252 10e9/L 09/24/2013 CBC 2198538 MPV 10.0 fL 09/24/2013 CBC 0035610 EMILEE % 56.1 % 09/24/2013 CBC 7497779 LY % 30.8 % 09/24/2013 CBC 5579108 MON % 9.5 % 09/24/2013 CBC 3734727 EOS % 3.0 % 09/24/2013 CBC 0849501 BASO % 0.6 % 09/24/2013 CBC 1670902 RDW 12.5 % 09/24/2013 CBC 6402738 ABS EMILEE 2.81 10e9/L 09/24/2013 CBC 1367101 ABS LYMPH 1.54 10e9/L 09/24/2013 CBC 5554969 ABS MONO 0.48 10e9/L 09/24/2013 CBC 2085915 ABS EOS 0.15 10e9/L 09/24/2013 CBC 6146042 ABS BASO 0.03 10e9/L 09/24/2013 CBC 9441051 RDW-SD 41.4 fL 09/24/2013 GFR CALC 7395627 GFR AA >60 ML/MIN 09/24/2013 GFR CALC 6593558 GFR NON-AA >60 ML/MIN 09/24/2013 TSH 8608336 TSH 1.614 uIU/ML 09/24/2013 CHEM 14 5358516 AST 31 U/L 09/24/2013 CHEM 14 8918686 ALT 11 IU/L 09/24/2013 CHEM 14 9356792 BUN 12 MG/DL 09/24/2013 CHEM 14 9141199 ALBUMIN 4.4 GM/DL 09/24/2013 CHEM 14 5838677 CHLORIDE 104 MMOL/L 09/24/2013 CHEM 14 6853536 BILI TOT 0.7 MG/DL 09/24/2013 CHEM 14 1121530 ALK PHOS 64 U/L 09/24/2013 CHEM 14 4027136 SODIUM 138 MMOL/L 09/24/2013 CHEM 14 4557415 CREATININE 0.73 MG/DL 09/24/2013 CHEM 14 6461665 CALCIUM 9.4 MG/DL 09/24/2013 CHEM 14 7679608 POTASSIUM 4.0 MMOL/L 09/24/2013 CHEM 14 4925030 PROT TOT 7.1 GM/DL 09/24/2013 CHEM 14 2137574 GLUCOSE 89 MG/DL 09/24/2013 CHEM 14 0276077 BICARB 28 MMOL/L 09/24/2013 CHEM 14 0548688 ANION GAP 6 MEQ/L 09/24/2013 LIPID GRP HDL TEST 66 MG/DL 09/24/2013 LIPID GRP TRIG 102 MG/DL 09/24/2013 LIPID GRP TEST LDL 139 MG/DL 09/24/2013 LIPID GRP CHOL 225 MG/DL 09/24/2013 LIPID GRP RCHOL/HDL 3.41 RATIO 09/24/2013 GC/CHL PRB 8659213 CHLM PROBE NEG 09/15/2013 GC/CHL PRB 3606002 GC PROBE NEG 09/15/2013 GFR CALC 8703956 GFR AA >60 ML/MIN 07/13/2012 GFR CALC 1432111 GFR NON-AA >60 ML/MIN 07/13/2012 CHEM 14 0877724 AST 35 U/L 07/13/2012 CHEM 14 6054456 ALT 14 IU/L 07/13/2012 CHEM 14 9625709 BUN 16 MG/DL 07/13/2012 CHEM 14 0877976 ALBUMIN 4.7 GM/DL 07/13/2012 CHEM 14 0701036 CHLORIDE 105 MMOL/L 07/13/2012 CHEM 14 8548941 BILI TOT 0.4 MG/DL 07/13/2012 CHEM 14 8350371 ALK PHOS 75 U/L 07/13/2012 CHEM 14 7289726 SODIUM 141 MMOL/L 07/13/2012 CHEM 14 9456778 CREATININE 0.78 MG/DL 07/13/2012 CHEM 14 7768553 CALCIUM 10.0 MG/DL 07/13/2012 CHEM 14 0800810 POTASSIUM 3.9 MMOL/L 07/13/2012 CHEM 14 9919084 PROT TOT 7.8 GM/DL 07/13/2012 CHEM 14 0062912 GLUCOSE 89 MG/DL 07/13/2012 CHEM 14 0304998 BICARB 26 MMOL/L 07/13/2012 CHEM 14 1840445 ANION GAP 10 MEQ/L 07/13/2012 Review of Systems System Result Effective Dates Constitutional No recent illness 2017 Constitutional No anorexia 08/28/2017 Constitutional No night sweats 2017 Constitutional No chills 08/28/2017 Constitutional No diaphoresis 08/28/2017 Constitutional No fever 08/28/2017 Constitutional No insomnia 08/28/2017 Constitutional No malaise 08/28/2017 Eyes No eye discharge 08/28/2017 Eyes No eye erythema 08/28/2017 Ears/Nose/Throat/Neck No dizziness 2017 Ears/Nose/Throat/Neck No headache 2017 Cardiovascular No chest pain/pressure Cardiovascular No dyspnea 08/28/2017 Cardiovascular No edema 08/28/2017 Respiratory No productive sputum 2017 Respiratory No chest congestion 2017 Respiratory No cough 08/28/2017 Gastrointestinal No abdominal pain 2017 Gastrointestinal No constipation 2017 Gastrointestinal No diarrhea 08/28/2017 Gastrointestinal No nausea 08/28/2017 Gastrointestinal No vomiting 08/28/2017 Genitourinary/Nephrology No dysuria 08/28 Musculoskeletal No joint complaint 2017 Dermatologic No rash 08/28/2017 Dermatologic sores 08/28/2017 Neurologic No alteration of consciousness 08/28/2017 Psychiatric anxiety 08/28/2017 Psychiatric depression 08/28/2017 Constitutional No recent illness 2016 Eyes No eye discharge 08/26/2016 Eyes No eye erythema 08/26/2016 Cardiovascular No chest pain/pressure Cardiovascular No dyspnea 08/26/2016 Cardiovascular No edema 08/26/2016 Respiratory No chest congestion 2016 Respiratory No cough 08/26/2016 Gastrointestinal No abdominal pain 2016 Musculoskeletal No joint complaint 2016 Neurologic No alteration of consciousness 08/26/2016 Respiratory pleuritic pain 08/26/2016 Constitutional No recent illness 2015 Constitutional No anorexia 05/02/2016 Constitutional No night sweats 2015 Constitutional No chills 05/02/2016 Constitutional No diaphoresis 05/02/2016 Constitutional No fatigue 05/02/2016 Constitutional No fever 05/02/2016 Constitutional No malaise 05/02/2016 Constitutional No weight loss 05/02/2016 Constitutional No weight gain 05/02/2016 Constitutional No insomnia 05/02/2016 Cardiovascular No chest pain/pressure Cardiovascular No dyspnea 05/02/2016 Cardiovascular No edema 05/02/2016 Constitutional No recent illness 2015 Constitutional fatigue 02/26/2016 Eyes No eye discharge 02/26/2016 Eyes No eye erythema 02/26/2016 Cardiovascular No chest pain/pressure Cardiovascular No dyspnea 02/26/2016 Cardiovascular No edema 02/26/2016 Respiratory No chest congestion 2015 Respiratory No cough 02/26/2016 Gastrointestinal No abdominal pain 2015 Musculoskeletal No joint complaint 2015 Neurologic No alteration of consciousness 02/26/2016 Constitutional No anorexia 02/26/2016 Constitutional No night sweats 2015 Constitutional No chills 02/26/2016 Constitutional No diaphoresis 02/26/2016 Constitutional No fever 02/26/2016 Constitutional No insomnia 02/26/2016 Constitutional No malaise 02/26/2016 Constitutional No weight loss 02/26/2016 Constitutional No weight gain 02/26/2016 Ears/Nose/Throat/Neck No dizziness 2015 Ears/Nose/Throat/Neck No headache 2015 Respiratory No productive sputum 2015 Gastrointestinal No constipation 2015 Gastrointestinal No diarrhea 02/26/2016 Gastrointestinal No nausea 02/26/2016 Gastrointestinal No vomiting 02/26/2016 Genitourinary/Nephrology No dysuria 02/25 Dermatologic No rash 02/26/2016 Dermatologic No sores 02/26/2016 Psychiatric anxiety 02/26/2016 Psychiatric depression 02/26/2016 Constitutional No recent illness 2015 Constitutional fatigue 11/02/2015 Eyes No eye discharge 11/02/2015 Eyes No eye erythema 11/02/2015 Cardiovascular No chest pain/pressure Cardiovascular No dyspnea 11/02/2015 Cardiovascular No edema 11/02/2015 Respiratory No chest congestion 2015 Respiratory No cough 11/02/2015 Gastrointestinal No abdominal pain 2015 Musculoskeletal No joint complaint 2015 Neurologic No alteration of consciousness 11/02/2015 Constitutional No recent illness 2015 Constitutional fatigue 09/25/2015 Eyes No eye discharge 09/25/2015 Eyes No eye erythema 09/25/2015 Cardiovascular No chest pain/pressure Cardiovascular No dyspnea 09/25/2015 Cardiovascular No edema 09/25/2015 Respiratory No chest congestion 2015 Respiratory No cough 09/25/2015 Gastrointestinal No abdominal pain 2015 Musculoskeletal No joint complaint 2015 Neurologic No alteration of consciousness 09/25/2015 Constitutional No recent illness 2014 Constitutional fatigue 08/10/2015 Cardiovascular No dyspnea 08/10/2015 Cardiovascular No edema 08/10/2015 Respiratory No chest congestion 2014 Respiratory No cough 08/10/2015 Eyes No eye discharge 08/10/2015 Eyes No eye erythema 08/10/2015 Cardiovascular No chest pain/pressure Gastrointestinal No abdominal pain 2014 Neurologic No alteration of consciousness 08/10/2015 Musculoskeletal No joint complaint 2014 Constitutional recent illness 05/24/2015 Constitutional fatigue 05/24/2015 Genitourinary/Nephrology breast complaint 05/24/2015 Cardiovascular No dyspnea 05/24/2015 Cardiovascular No edema 05/24/2015 Respiratory No cough 05/24/2015 Respiratory No chest congestion 2014 Dermatologic mole change 11/17/2014 Dermatologic sores 11/17/2014 Constitutional No recent illness 2014 Constitutional No fatigue 11/09/2014 Constitutional No fever 11/09/2014 Constitutional No insomnia 11/09/2014 Eyes No eye discharge 11/09/2014 Eyes No eye erythema 11/09/2014 Cardiovascular No chest pain/pressure 08/2014 Cardiovascular No edema 11/09/2014 Cardiovascular No near-syncope/dizziness 11/09/2014 Cardiovascular No syncope 11/09/2014 Respiratory No productive sputum 2014 Respiratory No chest congestion 2014 Respiratory No chest tightness 2014 Respiratory No cough 11/09/2014 Respiratory No dyspnea 11/09/2014 Gastrointestinal No abdominal pain 2014 Gastrointestinal No constipation 2014 Gastrointestinal No diarrhea 11/09/2014 Genitourinary/Nephrology No breast complaint 11/09/2014 Genitourinary/Nephrology No dysuria 11/09 Genitourinary/Nephrology No hematuria 08/2014 Genitourinary/Nephrology menopausal symptoms 11/09/2014 Genitourinary/Nephrology No Pap smear abnormality 11/09/2014 Genitourinary/Nephrology No urinary urgency 11/09/2014 Genitourinary/Nephrology No urinary frequency 11/09/2014 Genitourinary/Nephrology No vaginal discharge 11/09/2014 Musculoskeletal No joint complaint 2014 Neurologic No alteration of consciousness 11/09/2014 Psychiatric No anxiety 11/09/2014 Psychiatric No depression 11/09/2014 Dermatologic No rash 11/09/2014 Dermatologic sores 11/09/2014 Ears/Nose/Throat/Neck No dizziness 2014 Constitutional recent illness 07/14/2014 Constitutional No anorexia 07/14/2014 Constitutional No night sweats 2013 Constitutional chills 07/14/2014 Constitutional No diaphoresis 07/14/2014 Constitutional No fatigue 07/14/2014 Constitutional No fever 07/14/2014 Constitutional No insomnia 07/14/2014 Constitutional No malaise 07/14/2014 Constitutional No weight loss 07/14/2014 Constitutional No weight gain 07/14/2014 Eyes No eye discharge 07/14/2014 Eyes No eye erythema 07/14/2014 Cardiovascular No chest pain/pressure 11/2013 Respiratory productive sputum 07/14/2014 Respiratory No chest congestion 2013 Respiratory cough 07/14/2014 Gastrointestinal No abdominal pain 2013 Gastrointestinal No constipation 2013 Gastrointestinal No diarrhea 07/14/2014 Gastrointestinal No vomiting 07/14/2014 Gastrointestinal No nausea 07/14/2014 Respiratory dyspnea on exertion 2013 Genitourinary/Nephrology No dysuria 07/14 Musculoskeletal No joint complaint 2013 Dermatologic No sores 07/14/2014 Dermatologic No rash 07/14/2014 Neurologic No alteration of consciousness 07/14/2014 Constitutional No recent illness 2013 Constitutional No anorexia 03/07/2014 Constitutional No night sweats 2013 Constitutional No chills 03/07/2014 Constitutional No diaphoresis 03/07/2014 Constitutional fatigue 03/07/2014 Constitutional No fever 03/07/2014 Constitutional No insomnia 03/07/2014 Constitutional No malaise 03/07/2014 Constitutional No weight loss 03/07/2014 Constitutional No weight gain 03/07/2014 Eyes No eye discharge 03/07/2014 Eyes No eye erythema 03/07/2014 Ears/Nose/Throat/Neck No dizziness 2013 Ears/Nose/Throat/Neck No headache 2013 Cardiovascular No chest pain/pressure Cardiovascular No dyspnea 03/07/2014 Respiratory No productive sputum 2013 Respiratory No chest congestion 2013 Respiratory No cough 03/07/2014 Gastrointestinal No abdominal pain 2013 Gastrointestinal No constipation 2013 Gastrointestinal No diarrhea 03/07/2014 Gastrointestinal No nausea 03/07/2014 Gastrointestinal No vomiting 03/07/2014 Genitourinary/Nephrology No dysuria 03/07 Musculoskeletal No joint complaint 2013 Dermatologic No rash 03/07/2014 Dermatologic No sores 03/07/2014 Neurologic No alteration of consciousness 03/07/2014 Psychiatric anxiety 03/07/2014 Psychiatric depression 03/07/2014 Constitutional No recent illness 2013 Constitutional No anorexia 02/03/2014 Constitutional No night sweats 2013 Constitutional No chills 02/03/2014 Constitutional No diaphoresis 02/03/2014 Constitutional fatigue 02/03/2014 Constitutional No fever 02/03/2014 Constitutional No insomnia 02/03/2014 Constitutional No malaise 02/03/2014 Constitutional No weight loss 02/03/2014 Constitutional No weight gain 02/03/2014 Eyes No eye discharge 02/03/2014 Eyes No eye erythema 02/03/2014 Ears/Nose/Throat/Neck No dizziness 2013 Ears/Nose/Throat/Neck No headache 2013 Cardiovascular No chest pain/pressure Cardiovascular No dyspnea 02/03/2014 Respiratory No productive sputum 2013 Respiratory No chest congestion 2013 Respiratory No cough 02/03/2014 Gastrointestinal No abdominal pain 2013 Gastrointestinal No constipation 2013 Gastrointestinal No diarrhea 02/03/2014 Gastrointestinal No vomiting 02/03/2014 Gastrointestinal No nausea 02/03/2014 Genitourinary/Nephrology No dysuria 02/03 Musculoskeletal No joint complaint 2013 Dermatologic No rash 02/03/2014 Dermatologic No sores 02/03/2014 Neurologic No alteration of consciousness 02/03/2014 Psychiatric anxiety 02/03/2014 Psychiatric depression 02/03/2014 Cardiovascular No chest pain/pressure 11/2013 Cardiovascular No edema 09/14/2013 Cardiovascular No near-syncope/dizziness 09/14/2013 Cardiovascular No syncope 09/14/2013 Constitutional No fatigue 09/14/2013 Constitutional No fever 09/14/2013 Constitutional No insomnia 09/14/2013 Constitutional No recent illness 2013 Ears/Nose/Throat/Neck headache 2013 Eyes No eye discharge 09/14/2013 Eyes No eye erythema 09/14/2013 Gastrointestinal No abdominal pain 2013 Gastrointestinal No constipation 2013 Gastrointestinal No diarrhea 09/14/2013 Genitourinary/Nephrology No breast complaint 09/14/2013 Genitourinary/Nephrology No dysuria 09/14 Genitourinary/Nephrology No hematuria 11/2013 Genitourinary/Nephrology No urinary frequency 09/14/2013 Genitourinary/Nephrology No urinary urgency 09/14/2013 Genitourinary/Nephrology No vaginal discharge 09/14/2013 Genitourinary/Nephrology menopausal symptoms 09/14/2013 Genitourinary/Nephrology No Pap smear abnormality 09/14/2013 Musculoskeletal No joint complaint 2013 Neurologic No alteration of consciousness 09/14/2013 Respiratory No chest congestion 2013 Respiratory No chest tightness 2013 Respiratory No cough 09/14/2013 Respiratory No dyspnea 09/14/2013 Respiratory No productive sputum 2013 Constitutional No recent illness 2013 Constitutional No chills 08/23/2013 Constitutional No fatigue 08/23/2013 Constitutional No fever 08/23/2013 Constitutional No insomnia 08/23/2013 Constitutional No malaise 08/23/2013 Psychiatric No anxiety 08/23/2013 Psychiatric No depression 08/23/2013 Constitutional recent illness 08/09/2013 Constitutional No anorexia 08/09/2013 Constitutional No night sweats 2012 Constitutional No chills 08/09/2013 Constitutional No diaphoresis 08/09/2013 Constitutional No fatigue 08/09/2013 Constitutional No fever 08/09/2013 Eyes No eye discharge 08/09/2013 Eyes No eye erythema 08/09/2013 Cardiovascular No chest pain/pressure Respiratory No productive sputum 2012 Respiratory No chest congestion 2012 Respiratory No cough 08/09/2013 Gastrointestinal No abdominal pain 2012 Gastrointestinal No constipation 2012 Gastrointestinal No diarrhea 08/09/2013 Gastrointestinal No vomiting 08/09/2013 Gastrointestinal No nausea 08/09/2013 Genitourinary/Nephrology No dysuria 08/09 Musculoskeletal No joint complaint 2012 Constitutional No recent illness 2011 Constitutional No chills 07/13/2012 Constitutional No fatigue 07/13/2012 Constitutional No fever 07/13/2012 Constitutional No insomnia 07/13/2012 Constitutional No malaise 07/13/2012 Cardiovascular No chest pain/pressure 10/2011 Cardiovascular No edema 07/13/2012 Cardiovascular No near-syncope/dizziness 07/13/2012 Cardiovascular No syncope 07/13/2012 Eyes No eye discharge 07/13/2012 Eyes No eye erythema 07/13/2012 Gastrointestinal No abdominal pain 2011 Gastrointestinal No constipation 2011 Gastrointestinal No diarrhea 07/13/2012 Genitourinary/Nephrology No breast complaint 07/13/2012 Genitourinary/Nephrology No dysuria 07/13 Genitourinary/Nephrology No hematuria 10/2011 Genitourinary/Nephrology No urinary frequency 07/13/2012 Genitourinary/Nephrology No urinary urgency 07/13/2012 Genitourinary/Nephrology No vaginal discharge 07/13/2012 Genitourinary/Nephrology menopausal symptoms 07/13/2012 Genitourinary/Nephrology No Pap smear abnormality 07/13/2012 Musculoskeletal No joint complaint 2011 Neurologic No alteration of consciousness 07/13/2012 Respiratory No chest congestion 2011 Respiratory No chest tightness 2011 Respiratory No cough 07/13/2012 Respiratory No dyspnea 07/13/2012 Respiratory No productive sputum 2011 Constitutional No fatigue 12/03/2011 Constitutional No fever 12/03/2011 Constitutional No insomnia 12/03/2011 Constitutional No recent illness 2011 Eyes No eye discharge 12/03/2011 Eyes No eye erythema 12/03/2011 Ears/Nose/Throat/Neck headache 2011 Cardiovascular No chest pain/pressure Cardiovascular No edema 12/03/2011 Cardiovascular No near-syncope/dizziness 12/03/2011 Cardiovascular No syncope 12/03/2011 Respiratory No chest congestion 2011 Respiratory No chest tightness 2011 Respiratory No cough 12/03/2011 Respiratory No dyspnea 12/03/2011 Respiratory No productive sputum 2011 Gastrointestinal No abdominal pain 2011 Gastrointestinal No constipation 2011 Gastrointestinal No diarrhea 12/03/2011 Genitourinary/Nephrology No breast complaint 12/03/2011 Genitourinary/Nephrology No dysuria 12/02 Genitourinary/Nephrology No hematuria Genitourinary/Nephrology No urinary urgency 12/03/2011 Genitourinary/Nephrology No vaginal discharge 12/03/2011 Genitourinary/Nephrology menopausal symptoms 12/03/2011 Genitourinary/Nephrology No Pap smear abnormality 12/03/2011 Musculoskeletal No joint complaint 2011 Neurologic No alteration of consciousness 12/03/2011 Genitourinary/Nephrology No urinary frequency 12/03/2011 Physical Exam Exam Name System Name Item Name Status Result Effective Dates Notes Full Exam - General 1995 Constitutional general appearance Overall: well developed 08/28/2017 None Full Exam - General 1994 Constitutional general appearance Overall: in no acute distress 08/28/2017 None Full Exam - General 1994 Constitutional general appearance Overall: well nourished 08/28/2017 None Full Exam - General 1994 Eyes conjunctiva /eyelids Overall: conjunctiva clear 08/28/2017 None Full Exam - General 1994 Eyes conjunctiva /eyelids Overall: cornea clear 08/28/2017 None Full Exam - General 1994 Eyes conjunctiva /eyelids Overall: eyelids normal 08/28/2017 None Full Exam - General 1994 Eyes pupils and irises Overall: pupils equal, round, reactive to light and accomodation 08/28/2017 None Full Exam - General 1994 Ears/Nose/Throat lips/teeth/gingiva Overall: benign lips 08/28/2017 None Full Exam - General 1994 Ears/Nose/Throat lips/teeth/gingiva Overall: normal dentition 08/28/2017 None Full Exam - General 1994 Ears/Nose/Throat oral cavity/pharynx/larynx Overall: oral mucosa clear 08/28/2017 None Full Exam - General 1994 Ears/Nose/Throat oral cavity/pharynx/larynx Overall: oropharyngeal mucosa clear 08/28/2017 None Full Exam - General 1994 Ears/Nose/Throat oral cavity/pharynx/larynx Overall: no masses 08/28/2017 None Full Exam - General 1994 Respiratory auscultation Overall: breath sounds clear bilaterally 08/28/2017 None Full Exam - General 1994 Respiratory respiratory effort/rhythm Overall: no retractions 08/28/2017 None Full Exam - General 1994 Respiratory respiratory effort/rhythm Overall: normal rate 08/28/2017 None Full Exam - General 1994 Cardiovascular extremities Overall: no clubbing 08/28/2017 None Full Exam - General 1994 Cardiovascular auscultation of heart Overall: regular rate 08/28/2017 None Full Exam - General 1994 Cardiovascular auscultation of heart Overall: normal heart sounds 08/28/2017 None Full Exam - General 1994 Cardiovascular auscultation of heart Overall: no murmurs 08/28/2017 None Full Exam - General 1994 Abdomen abdominal exam Overall: no tenderness 08/28/2017 None Full Exam - General 1994 Abdomen abdominal exam Overall: normal bowel sounds 08/28/2017 None Full Exam - General 1994 Musculoskeletal head and neck Overall: head atraumatic 08/28/2017 None Full Exam - General 1994 Musculoskeletal head and neck Overall: cervical spine benign 08/28/2017 None Full Exam - General 1994 Neurologic cranial nerves Overall: crainial nerves 2 - 12 grossly intact 08/28/2017 None Full Exam - General 1994 Psychiatric orientation/consciousness Overall: oriented to person, place and time 08/28/2017 None Full Exam - General 1994 Psychiatric mood and affect Overall: normal mood and affect 08/28/2017 None Full Exam - General 1994 Psychiatric mood and affect Mood: happy 08/28/2017 None Full Exam - General 1994 Integument inspection of skin Location: chest 08/28/2017 on left upper chest - incision with sutures in place, healing well, irritation on skin from bandaid Full Exam - General 1994 Constitutional general appearance Overall: well developed 08/26/2016 None Full Exam - General 1994 Constitutional general appearance Overall: in no acute distress 08/26/2016 None Full Exam - General 1994 Constitutional general appearance Overall: well nourished 08/26/2016 None Full Exam - General 1994 Eyes conjunctiva /eyelids Overall: conjunctiva clear 08/26/2016 None Full Exam - General 1994 Eyes conjunctiva /eyelids Overall: cornea clear 08/26/2016 None Full Exam - General 1994 Eyes conjunctiva /eyelids Overall: eyelids normal 08/26/2016 None Full Exam - General 1994 Respiratory auscultation Overall: breath sounds clear bilaterally 08/26/2016 None Full Exam - General 1994 Respiratory respiratory effort/rhythm Overall: no retractions 08/26/2016 None Full Exam - General 1994 Respiratory respiratory effort/rhythm Overall: normal rate 08/26/2016 None Full Exam - General 1994 Cardiovascular extremities Overall: no clubbing 08/26/2016 None Full Exam - General 1994 Cardiovascular auscultation of heart Overall: regular rate 08/26/2016 None Full Exam - General 1994 Cardiovascular auscultation of heart Overall: normal heart sounds 08/26/2016 None Full Exam - General 1994 Abdomen abdominal exam Overall: no tenderness 08/26/2016 None Full Exam - General 1994 Abdomen abdominal exam Overall: normal bowel sounds 08/26/2016 None Full Exam - General 1994 Musculoskeletal head and neck Overall: head atraumatic 08/26/2016 None Full Exam - General 1994 Musculoskeletal head and neck Overall: cervical spine benign 08/26/2016 None Full Exam - General 1994 Neurologic cranial nerves Overall: crainial nerves 2 - 12 grossly intact 08/26/2016 None Full Exam - General 1994 Psychiatric orientation/consciousness Overall: oriented to person, place and time 08/26/2016 None Full Exam - General 1994 Psychiatric mood and affect Overall: normal mood and affect 08/26/2016 None Full Exam - General 1994 Psychiatric mood and affect Mood: happy 08/26/2016 None Full Exam - General 1994 Respiratory palpation of chest Chest wall pain: pain to light pressure 08/26/2016 left lower ribs Full Exam - General 1994 Constitutional general appearance Overall: well developed 05/02/2016 None Full Exam - General 1994 Constitutional general appearance Overall: in no acute distress 05/02/2016 None Full Exam - General 1994 Constitutional general appearance Overall: well nourished 05/02/2016 None Full Exam - General 1994 Eyes conjunctiva /eyelids Overall: conjunctiva clear 05/02/2016 None Full Exam - General 1994 Eyes conjunctiva /eyelids Overall: cornea clear 05/02/2016 None Full Exam - General 1994 Eyes conjunctiva /eyelids Overall: eyelids normal 05/02/2016 None Full Exam - General 1994 Eyes pupils and irises Overall: pupils equal, round, reactive to light and accomodation 05/02/2016 None Full Exam - General 1994 Ears/Nose/Throat lips/teeth/gingiva Overall: benign lips 05/02/2016 None Full Exam - General 1994 Ears/Nose/Throat lips/teeth/gingiva Overall: normal dentition 05/02/2016 None Full Exam - General 1994 Ears/Nose/Throat oral cavity/pharynx/larynx Overall: oral mucosa clear 05/02/2016 None Full Exam - General 1994 Ears/Nose/Throat oral cavity/pharynx/larynx Overall: oropharyngeal mucosa clear 05/02/2016 None Full Exam - General 1994 Ears/Nose/Throat oral cavity/pharynx/larynx Overall: no masses 05/02/2016 None Full Exam - General 1994 Respiratory auscultation Overall: breath sounds clear bilaterally 05/02/2016 None Full Exam - General 1994 Respiratory respiratory effort/rhythm Overall: no retractions 05/02/2016 None Full Exam - General 1994 Respiratory respiratory effort/rhythm Overall: normal rate 05/02/2016 None Full Exam - General 1994 Cardiovascular extremities Overall: no clubbing 05/02/2016 None Full Exam - General 1994 Cardiovascular auscultation of heart Overall: regular rate 05/02/2016 None Full Exam - General 1994 Cardiovascular auscultation of heart Overall: normal heart sounds 05/02/2016 None Full Exam - General 1994 Cardiovascular auscultation of heart Overall: no murmurs 05/02/2016 None Full Exam - General 1994 Abdomen abdominal exam Overall: no tenderness 05/02/2016 None Full Exam - General 1994 Abdomen abdominal exam Overall: normal bowel sounds 05/02/2016 None Full Exam - General 1994 Musculoskeletal head and neck Overall: head atraumatic 05/02/2016 None Full Exam - General 1994 Musculoskeletal head and neck Overall: cervical spine benign 05/02/2016 None Full Exam - General 1994 Neurologic cranial nerves Overall: crainial nerves 2 - 12 grossly intact 05/02/2016 None Full Exam - General 1994 Psychiatric orientation/consciousness Overall: oriented to person, place and time 05/02/2016 None Full Exam - General 1994 Psychiatric mood and affect Overall: normal mood and affect 05/02/2016 None Full Exam - General 1994 Psychiatric mood and affect Mood: happy 05/02/2016 None Full Exam - General 1994 Constitutional general appearance Overall: well developed 02/26/2016 None Full Exam - General 1994 Constitutional general appearance Overall: in no acute distress 02/26/2016 None Full Exam - General 1994 Constitutional general appearance Overall: well nourished 02/26/2016 None Full Exam - General 1994 Eyes conjunctiva /eyelids Overall: conjunctiva clear 02/26/2016 None Full Exam - General 1994 Eyes conjunctiva /eyelids Overall: cornea clear 02/26/2016 None Full Exam - General 1994 Eyes conjunctiva /eyelids Overall: eyelids normal 02/26/2016 None Full Exam - General 1994 Respiratory auscultation Overall: breath sounds clear bilaterally 02/26/2016 None Full Exam - General 1994 Respiratory respiratory effort/rhythm Overall: no retractions 02/26/2016 None Full Exam - General 1994 Respiratory respiratory effort/rhythm Overall: normal rate 02/26/2016 None Full Exam - General 1994 Cardiovascular extremities Overall: no clubbing 02/26/2016 None Full Exam - General 1994 Cardiovascular auscultation of heart Overall: regular rate 02/26/2016 None Full Exam - General 1994 Cardiovascular auscultation of heart Overall: normal heart sounds 02/26/2016 None Full Exam - General 1994 Abdomen abdominal exam Overall: no tenderness 02/26/2016 None Full Exam - General 1994 Abdomen abdominal exam Overall: normal bowel sounds 02/26/2016 None Full Exam - General 1994 Musculoskeletal head and neck Overall: head atraumatic 02/26/2016 None Full Exam - General 1994 Musculoskeletal head and neck Overall: cervical spine benign 02/26/2016 None Full Exam - General 1994 Neurologic cranial nerves Overall: crainial nerves 2 - 12 grossly intact 02/26/2016 None Full Exam - General 1994 Psychiatric orientation/consciousness Overall: oriented to person, place and time 02/26/2016 None Full Exam - General 1994 Psychiatric mood and affect Overall: normal mood and affect 02/26/2016 None Full Exam - General 1994 Psychiatric mood and affect Mood: happy 02/26/2016 None Full Exam - General 1994 Eyes pupils and irises Overall: pupils equal, round, reactive to light and accomodation 02/26/2016 None Full Exam - General 1994 Ears/Nose/Throat lips/teeth/gingiva Overall: benign lips 02/26/2016 None Full Exam - General 1994 Ears/Nose/Throat lips/teeth/gingiva Overall: normal dentition 02/26/2016 None Full Exam - General 1994 Ears/Nose/Throat oral cavity/pharynx/larynx Overall: oral mucosa clear 02/26/2016 None Full Exam - General 1994 Ears/Nose/Throat oral cavity/pharynx/larynx Overall: oropharyngeal mucosa clear 02/26/2016 None Full Exam - General 1994 Ears/Nose/Throat oral cavity/pharynx/larynx Overall: no masses 02/26/2016 None Full Exam - General 1994 Cardiovascular auscultation of heart Overall: no murmurs 02/26/2016 None Full Exam - General 1994 Psychiatric mood and affect Mood: depressed 02/26/2016 None Full Exam - General 1994 Constitutional general appearance Overall: well developed 11/02/2015 None Full Exam - General 1994 Constitutional general appearance Overall: in no acute distress 11/02/2015 None Full Exam - General 1994 Constitutional general appearance Overall: well nourished 11/02/2015 None Full Exam - General 1994 Eyes conjunctiva /eyelids Overall: conjunctiva clear 11/02/2015 None Full Exam - General 1994 Eyes conjunctiva /eyelids Overall: cornea clear 11/02/2015 None Full Exam - General 1994 Eyes conjunctiva /eyelids Overall: eyelids normal 11/02/2015 None Full Exam - General 1994 Respiratory auscultation Overall: breath sounds clear bilaterally 11/02/2015 None Full Exam - General 1994 Respiratory respiratory effort/rhythm Overall: no retractions 11/02/2015 None Full Exam - General 1994 Respiratory respiratory effort/rhythm Overall: normal rate 11/02/2015 None Full Exam - General 1994 Cardiovascular extremities Overall: no clubbing 11/02/2015 None Full Exam - General 1994 Cardiovascular auscultation of heart Overall: regular rate 11/02/2015 None Full Exam - General 1994 Cardiovascular auscultation of heart Overall: normal heart sounds 11/02/2015 None Full Exam - General 1994 Neurologic cranial nerves Overall: crainial nerves 2 - 12 grossly intact 11/02/2015 None Full Exam - General 1994 Psychiatric orientation/consciousness Overall: oriented to person, place and time 11/02/2015 None Full Exam - General 1994 Psychiatric mood and affect Overall: normal mood and affect 11/02/2015 None Full Exam - General 1994 Psychiatric mood and affect Mood: happy 11/02/2015 None Full Exam - General 1994 Abdomen abdominal exam Overall: no tenderness 11/02/2015 None Full Exam - General 1994 Abdomen abdominal exam Overall: normal bowel sounds 11/02/2015 None Full Exam - General 1994 Musculoskeletal head and neck Overall: cervical spine benign 11/02/2015 None Full Exam - General 1994 Musculoskeletal head and neck Overall: head atraumatic 11/02/2015 None Full Exam - General 1994 Constitutional general appearance Overall: well developed 09/25/2015 None Full Exam - General 1994 Constitutional general appearance Overall: in no acute distress 09/25/2015 None Full Exam - General 1994 Constitutional general appearance Overall: well nourished 09/25/2015 None Full Exam - General 1994 Eyes conjunctiva /eyelids Overall: conjunctiva clear 09/25/2015 None Full Exam - General 1994 Eyes conjunctiva /eyelids Overall: cornea clear 09/25/2015 None Full Exam - General 1994 Eyes conjunctiva /eyelids Overall: eyelids normal 09/25/2015 None Full Exam - General 1994 Respiratory auscultation Overall: breath sounds clear bilaterally 09/25/2015 None Full Exam - General 1994 Respiratory respiratory effort/rhythm Overall: no retractions 09/25/2015 None Full Exam - General 1994 Respiratory respiratory effort/rhythm Overall: normal rate 09/25/2015 None Full Exam - General 1994 Cardiovascular extremities Overall: no clubbing 09/25/2015 None Full Exam - General 1994 Cardiovascular auscultation of heart Overall: regular rate 09/25/2015 None Full Exam - General 1994 Cardiovascular auscultation of heart Overall: normal heart sounds 09/25/2015 None Full Exam - General 1994 Neurologic cranial nerves Overall: crainial nerves 2 - 12 grossly intact 09/25/2015 None Full Exam - General 1994 Psychiatric orientation/consciousness Overall: oriented to person, place and time 09/25/2015 None Full Exam - General 1994 Psychiatric mood and affect Overall: normal mood and affect 09/25/2015 None Full Exam - General 1994 Psychiatric mood and affect Mood: happy 09/25/2015 None Full Exam - General 1994 Constitutional general appearance Overall: well developed 08/10/2015 None Full Exam - General 1994 Constitutional general appearance Overall: in no acute distress 08/10/2015 None Full Exam - General 1994 Constitutional general appearance Overall: well nourished 08/10/2015 None Full Exam - General 1994 Respiratory auscultation Overall: breath sounds clear bilaterally 08/10/2015 None Full Exam - General 1994 Respiratory respiratory effort/rhythm Overall: no retractions 08/10/2015 None Full Exam - General 1994 Respiratory respiratory effort/rhythm Overall: normal rate 08/10/2015 None Full Exam - General 1994 Cardiovascular extremities Overall: no clubbing 08/10/2015 None Full Exam - General 1994 Cardiovascular auscultation of heart Overall: regular rate 08/10/2015 None Full Exam - General 1994 Cardiovascular auscultation of heart Overall: normal heart sounds 08/10/2015 None Full Exam - General 1994 Psychiatric orientation/consciousness Overall: oriented to person, place and time 08/10/2015 None Full Exam - General 1994 Psychiatric mood and affect Overall: normal mood and affect 08/10/2015 None Full Exam - General 1994 Psychiatric mood and affect Mood: happy 08/10/2015 None Full Exam - General 1994 Eyes conjunctiva /eyelids Overall: conjunctiva clear 08/10/2015 None Full Exam - General 1994 Eyes conjunctiva /eyelids Overall: cornea clear 08/10/2015 None Full Exam - General 1994 Eyes conjunctiva /eyelids Overall: eyelids normal 08/10/2015 None Full Exam - General 1994 Neurologic cranial nerves Overall: crainial nerves 2 - 12 grossly intact 08/10/2015 None Full Exam - General 1994 Constitutional general appearance Overall: well nourished 05/24/2015 None Full Exam - General 1994 Constitutional general appearance Overall: well developed 05/24/2015 None Full Exam - General 1994 Constitutional general appearance Overall: in no acute distress 05/24/2015 None Full Exam - General 1994 Psychiatric mood and affect Mood: happy 05/24/2015 None Full Exam - General 1994 Psychiatric mood and affect Overall: normal mood and affect 05/24/2015 None Full Exam - General 1994 Psychiatric orientation/consciousness Overall: oriented to person, place and time 05/24/2015 None Full Exam - General 1994 Respiratory respiratory effort/rhythm Overall: normal rate 05/24/2015 None Full Exam - General 1994 Respiratory respiratory effort/rhythm Overall: no retractions 05/24/2015 None Full Exam - General 1994 Respiratory auscultation Overall: breath sounds clear bilaterally 05/24/2015 None Full Exam - General 1994 Cardiovascular auscultation of heart Overall: regular rate 05/24/2015 None Full Exam - General 1994 Cardiovascular auscultation of heart Overall: normal heart sounds 05/24/2015 None Full Exam - General 1994 Cardiovascular auscultation of heart Overall: no murmurs 05/24/2015 None Full Exam - General 1994 Cardiovascular extremities Overall: no clubbing 05/24/2015 None Full Exam - General 1994 Chest/Breast breast/chest inspection Skin appearance: thickened 05/24/2015 on left breast Full Exam - General 1994 Chest/Breast breast/chest inspection Skin appearance: red 05/24/2015 edema on inner left breast at lower inner and outer quadrant, inner quadrant edema greater than outer quadrant edema Full Exam - Dermatology Integument insp & palp - chest/axillae Location: on the left mid chest 11/17/2014 None Full Exam - Dermatology Integument insp & palp - chest/axillae Color: red 11/17/2014 None Full Exam - Dermatology Integument insp & palp - chest/axillae Appearance: with elevated border 11/17/2014 None Full Exam - Genitourinary/Female Constitutional general appearance Overall: well nourished 11/09/2014 None Full Exam - Genitourinary/Female Constitutional general appearance Overall: well developed 11/09/2014 None Full Exam - Genitourinary/Female Constitutional general appearance Overall: in no acute distress 11/09/2014 None Full Exam - Genitourinary/Female Eyes conjunctiva/eyelids Overall: conjunctiva clear 11/09/2014 None Full Exam - Genitourinary/Female Eyes pupils and irises Overall: pupils equal, round, reactive to light and accomodation 11/09/2014 None Full Exam - Genitourinary/Female Ears/Nose/Throat otoscopic exam Overall: external auditory canals clear 11/09/2014 None Full Exam - Genitourinary/Female Ears/Nose/Throat otoscopic exam Overall: tympanic membranes clear 11/09/2014 None Full Exam - Genitourinary/Female Ears/Nose/Throat oral cavity/pharynx/larynx Overall: oral mucosa clear 11/09/2014 None Full Exam - Genitourinary/Female Respiratory auscultation Overall: breath sounds clear bilaterally 11/09/2014 None Full Exam - Genitourinary/Female Respiratory respiratory effort/rhythm Overall: no retractions 11/09/2014 None Full Exam - Genitourinary/Female Respiratory respiratory effort/rhythm Overall: normal rate 11/09/2014 None Full Exam - Genitourinary/Female Cardiovascular auscultation of heart Overall: regular rate 11/09/2014 None Full Exam - Genitourinary/Female Cardiovascular auscultation of heart Overall: normal heart sounds 11/09/2014 None Full Exam - Genitourinary/Female Cardiovascular examination of vasculature Overall: no clubbing, cyanosis, edema 11/09/2014 None Full Exam - Genitourinary/Female Chest/Breast breast inspection and palpation Overall: normal chest shape 11/09/2014 None Full Exam - Genitourinary/Female Chest/Breast breast inspection and palpation Overall: no nipple discharge 11/09/2014 None Full Exam - Genitourinary/Female Abdomen abdominal exam Overall: non tender, non distended 11/09/2014 None Full Exam - Genitourinary/Female Abdomen abdominal exam Overall: normal bowel sounds 11/09/2014 None Full Exam - Genitourinary/Female Abdomen abdominal exam Overall: no mass lesions 11/09/2014 None Full Exam - Genitourinary/Female Genitourinary breast inspection & palpation Overall: breasts symmetric and without lesions 11/09/2014 None Full Exam - Genitourinary/Female Genitourinary breast inspection & palpation Overall: breasts non-tender, no mass lesions 11/09/2014 None Full Exam - Genitourinary/Female Genitourinary breast inspection & palpation Overall: no nipple discharge 11/09/2014 None Full Exam - Genitourinary/Female Genitourinary digital rectal exam Overall: good sphincter tone, no masses, no lesions 11/09/2014 None Full Exam - Genitourinary/Female Genitourinary external genitalia Overall: no discharge 11/09/2014 None Full Exam - Genitourinary/Female Genitourinary external genitalia Overall: no lesions 11/09/2014 None Full Exam - Genitourinary/Female Genitourinary urethral meatus Overall: normal size and location 11/09/2014 None Full Exam - Genitourinary/Female Genitourinary bladder Palpation: non-tender 11/09/2014 None Full Exam - Genitourinary/Female Genitourinary bladder Palpation: no masses 11/09/2014 None Full Exam - Genitourinary/Female Genitourinary vagina Overall: no discharge 11/09/2014 None Full Exam - Genitourinary/Female Genitourinary vagina Overall: no lesions 11/09/2014 None Full Exam - Genitourinary/Female Genitourinary vagina Introitus: normal appearance 11/09/2014 None Full Exam - Genitourinary/Female Genitourinary vagina Vaginal discharge: absent 11/09/2014 None Full Exam - Genitourinary/Female Genitourinary vagina Vagina: no lesions present 11/09/2014 None Full Exam - Genitourinary/Female Genitourinary vagina Vaginal tone: a normal exam 11/09/2014 None Full Exam - Genitourinary/Female Genitourinary cervix Inspection: normal os 11/09/2014 None Full Exam - Genitourinary/Female Genitourinary uterus Overall: normal size 11/09/2014 None Full Exam - Genitourinary/Female Genitourinary uterus Overall: non tender 11/09/2014 None Full Exam - Genitourinary/Female Lymphatic inspection and palpation of nodes Overall: anterior cervical chain benign 11/09/2014 None Full Exam - Genitourinary/Female Lymphatic inspection and palpation of nodes Overall: posterior cervical chain benign 11/09/2014 None Full Exam - Genitourinary/Female Musculoskeletal head and neck Overall: torticolis 11/09/2014 on the left neck - Full Exam - Genitourinary/Female Musculoskeletal head and neck Overall: head atraumatic 11/09/2014 None Full Exam - Genitourinary/Female Musculoskeletal gait and station Overall: normal gait 11/09/2014 None Full Exam - Genitourinary/Female Musculoskeletal gait and station Overall: normal station 11/09/2014 None Full Exam - Genitourinary/Female Integument inspection and palpation of skin Overall: no rash, lesions 11/09/2014 None Full Exam - Genitourinary/Female Neurologic mood and affect Overall: normal mood 11/09/2014 None Full Exam - Genitourinary/Female Neurologic mood and affect Overall: normal affect 11/09/2014 None Full Exam - Genitourinary/Female Neurologic orientation Overall: oriented to person, place and time 11/09/2014 None Full Exam - Genitourinary/Female Psychiatric orientation/consciousness Overall: oriented to person, place and time 11/09/2014 None Full Exam - Genitourinary/Female Chest/Breast breast inspection and palpation Skin appearance: thickened 11/09/2014 None Full Exam - Genitourinary/Female Chest/Breast breast inspection and palpation Skin appearance: red 11/09/2014 on left breast - with nonhealing scar over the upper inner quadrant on the left at the lateral edge of the wound - shiny fibrinous tissue in the edge of the wound - Full Exam - Genitourinary/Female Chest/Breast breast inspection and palpation Skin appearance: scars 11/09/2014 at axilla on left breast Full Exam - Genitourinary/Female Chest/Breast breast inspection and palpation Right upper inner quadrant: no lesions 11/09/2014 None Full Exam - Genitourinary/Female Chest/Breast breast inspection and palpation Right upper outer quadrant: no lesions 11/09/2014 None Full Exam - Genitourinary/Female Chest/Breast breast inspection and palpation Right lower inner quadrant: no lesions 11/09/2014 None Full Exam - Genitourinary/Female Chest/Breast breast inspection and palpation Right lower outer quadrant: no lesions 11/09/2014 None Full Exam - ENT Constitutional general appearance Overall: well nourished 07/14/2014 None Full Exam - ENT Constitutional general appearance Overall: well developed 07/14/2014 None Full Exam - ENT Constitutional general appearance Overall: in no acute distress 07/14/2014 None Full Exam - ENT Neurologic orientation Overall: oriented to person, place and time 07/14/2014 None Full Exam - ENT Lymphatic palpation of lymph nodes Overall: shotty lymphadenopathy 07/14/2014 None Full Exam - ENT Cardiovascular auscultation of heart Overall: regular rate 07/14/2014 None Full Exam - ENT Cardiovascular auscultation of heart Overall: normal heart sounds 07/14/2014 None Full Exam - ENT Respiratory inspection Overall: no retractions 07/14/2014 None Full Exam - ENT Respiratory inspection Overall: normal rate 11/2013 None Full Exam - ENT Respiratory auscultation Overall: breath sounds clear bilaterally 07/14/2014 None Full Exam - ENT Face and Head palpation Left maxillary sinus: tender 07/14/2014 None Full Exam - ENT Face and Head palpation Right maxillary sinus: tender 07/14/2014 None Full Exam - ENT Ears/Nose/Throat otoscopic exam Overall: external auditory canals normal 07/14/2014 None Full Exam - ENT Ears/Nose/Throat otoscopic exam Overall: tympanic membranes normal 07/14/2014 None Full Exam - ENT Ears/Nose/Throat oropharynx Overall: oral mucosa clear 07/14/2014 None Full Exam - General 1994 Constitutional general appearance Overall: well developed 03/07/2014 None Full Exam - General 1994 Constitutional general appearance Overall: in no acute distress 03/07/2014 None Full Exam - General 1994 Constitutional general appearance Overall: well nourished 03/07/2014 None Full Exam - General 1994 Eyes pupils and irises Overall: pupils equal, round, reactive to light and accomodation 03/07/2014 None Full Exam - General 1994 Ears/Nose/Throat lips/teeth/gingiva Overall: benign lips 03/07/2014 None Full Exam - General 1994 Ears/Nose/Throat lips/teeth/gingiva Overall: normal dentition 03/07/2014 None Full Exam - General 1994 Ears/Nose/Throat oral cavity/pharynx/larynx Overall: oral mucosa clear 03/07/2014 None Full Exam - General 1994 Ears/Nose/Throat oral cavity/pharynx/larynx Overall: oropharyngeal mucosa clear 03/07/2014 None Full Exam - General 1994 Ears/Nose/Throat oral cavity/pharynx/larynx Overall: no masses 03/07/2014 None Full Exam - General 1994 Respiratory auscultation Overall: breath sounds clear bilaterally 03/07/2014 None Full Exam - General 1994 Respiratory respiratory effort/rhythm Overall: no retractions 03/07/2014 None Full Exam - General 1994 Respiratory respiratory effort/rhythm Overall: normal rate 03/07/2014 None Full Exam - General 1994 Cardiovascular extremities Overall: no clubbing 03/07/2014 None Full Exam - General 1994 Cardiovascular auscultation of heart Overall: regular rate 03/07/2014 None Full Exam - General 1994 Cardiovascular auscultation of heart Overall: normal heart sounds 03/07/2014 None Full Exam - General 1994 Cardiovascular auscultation of heart Overall: no murmurs 03/07/2014 None Full Exam - General 1994 Musculoskeletal head and neck Overall: head atraumatic 03/07/2014 None Full Exam - General 1994 Musculoskeletal head and neck Overall: cervical spine benign 03/07/2014 None Full Exam - General 1994 Psychiatric orientation/consciousness Overall: oriented to person, place and time 03/07/2014 None Full Exam - General 1994 Psychiatric mood and affect Overall: normal mood and affect 03/07/2014 None Full Exam - General 1994 Psychiatric mood and affect Mood: depressed 03/07/2014 None Full Exam - General 1994 Constitutional general appearance Overall: well developed 02/03/2014 None Full Exam - General 1994 Constitutional general appearance Overall: in no acute distress 02/03/2014 None Full Exam - General 1994 Constitutional general appearance Overall: well nourished 02/03/2014 None Full Exam - General 1994 Eyes pupils and irises Overall: pupils equal, round, reactive to light and accomodation 02/03/2014 None Full Exam - General 1994 Ears/Nose/Throat otoscopic exam Overall: external auditory canals clear 02/03/2014 None Full Exam - General 1994 Ears/Nose/Throat otoscopic exam Overall: tympanic membranes clear 02/03/2014 None Full Exam - General 1994 Ears/Nose/Throat lips/teeth/gingiva Overall: benign lips 02/03/2014 None Full Exam - General 1994 Ears/Nose/Throat lips/teeth/gingiva Overall: normal dentition 02/03/2014 None Full Exam - General 1994 Ears/Nose/Throat oral cavity/pharynx/larynx Overall: oral mucosa clear 02/03/2014 None Full Exam - General 1994 Ears/Nose/Throat oral cavity/pharynx/larynx Overall: oropharyngeal mucosa clear 02/03/2014 None Full Exam - General 1994 Ears/Nose/Throat oral cavity/pharynx/larynx Overall: no masses 02/03/2014 None Full Exam - General 1994 Respiratory auscultation Overall: breath sounds clear bilaterally 02/03/2014 None Full Exam - General 1994 Respiratory respiratory effort/rhythm Overall: no retractions 02/03/2014 None Full Exam - General 1994 Respiratory respiratory effort/rhythm Overall: normal rate 02/03/2014 None Full Exam - General 1994 Cardiovascular extremities Overall: no clubbing 02/03/2014 None Full Exam - General 1994 Cardiovascular auscultation of heart Overall: regular rate 02/03/2014 None Full Exam - General 1994 Cardiovascular auscultation of heart Overall: normal heart sounds 02/03/2014 None Full Exam - General 1994 Cardiovascular auscultation of heart Overall: no murmurs 02/03/2014 None Full Exam - General 1994 Abdomen abdominal exam Overall: no tenderness 02/03/2014 None Full Exam - General 1994 Abdomen abdominal exam Overall: normal bowel sounds 02/03/2014 None Full Exam - General 1994 Musculoskeletal head and neck Overall: head atraumatic 02/03/2014 None Full Exam - General 1994 Musculoskeletal head and neck Overall: cervical spine benign 02/03/2014 None Full Exam - General 1994 Psychiatric orientation/consciousness Overall: oriented to person, place and time 02/03/2014 None Full Exam - General 1994 Psychiatric mood and affect Overall: normal mood and affect 02/03/2014 None Full Exam - General 1994 Psychiatric mood and affect Mood: depressed 02/03/2014 None Full Exam - Genitourinary/Female Constitutional general appearance Overall: well nourished 09/14/2013 None Full Exam - Genitourinary/Female Constitutional general appearance Overall: well developed 09/14/2013 None Full Exam - Genitourinary/Female Constitutional general appearance Overall: in no acute distress 09/14/2013 None Full Exam - Genitourinary/Female Eyes conjunctiva/eyelids Overall: conjunctiva clear 09/14/2013 None Full Exam - Genitourinary/Female Eyes pupils and irises Overall: pupils equal, round, reactive to light and accomodation 09/14/2013 None Full Exam - Genitourinary/Female Ears/Nose/Throat otoscopic exam Overall: external auditory canals clear 09/14/2013 None Full Exam - Genitourinary/Female Ears/Nose/Throat otoscopic exam Overall: tympanic membranes clear 09/14/2013 None Full Exam - Genitourinary/Female Ears/Nose/Throat oral cavity/pharynx/larynx Overall: oral mucosa clear 09/14/2013 None Full Exam - Genitourinary/Female Respiratory auscultation Overall: breath sounds clear bilaterally 09/14/2013 None Full Exam - Genitourinary/Female Respiratory respiratory effort/rhythm Overall: no retractions 09/14/2013 None Full Exam - Genitourinary/Female Respiratory respiratory effort/rhythm Overall: normal rate 09/14/2013 None Full Exam - Genitourinary/Female Cardiovascular auscultation of heart Overall: regular rate 09/14/2013 None Full Exam - Genitourinary/Female Cardiovascular auscultation of heart Overall: normal heart sounds 09/14/2013 None Full Exam - Genitourinary/Female Cardiovascular examination of vasculature Overall: no clubbing, cyanosis, edema 09/14/2013 None Full Exam - Genitourinary/Female Abdomen abdominal exam Overall: non tender, non distended 09/14/2013 None Full Exam - Genitourinary/Female Abdomen abdominal exam Overall: normal bowel sounds 09/14/2013 None Full Exam - Genitourinary/Female Abdomen abdominal exam Overall: no mass lesions 09/14/2013 None Full Exam - Genitourinary/Female Genitourinary breast inspection & palpation Overall: breasts symmetric and without lesions 09/14/2013 None Full Exam - Genitourinary/Female Genitourinary breast inspection & palpation Overall: breasts non-tender, no mass lesions 09/14/2013 None Full Exam - Genitourinary/Female Genitourinary breast inspection & palpation Overall: no nipple discharge 09/14/2013 None Full Exam - Genitourinary/Female Genitourinary external genitalia Overall: no discharge 09/14/2013 None Full Exam - Genitourinary/Female Chest/Breast breast inspection and palpation Overall: breasts non-tender, no mass lesions 09/14/2013 None Full Exam - Genitourinary/Female Chest/Breast breast inspection and palpation Overall: no nipple discharge 09/14/2013 None Full Exam - Genitourinary/Female Genitourinary digital rectal exam Overall: good sphincter tone, no masses, no lesions 09/14/2013 None Full Exam - Genitourinary/Female Genitourinary external genitalia Overall: no lesions 09/14/2013 None Full Exam - Genitourinary/Female Genitourinary urethral meatus Overall: normal size and location 09/14/2013 None Full Exam - Genitourinary/Female Genitourinary bladder Palpation: non-tender 09/14/2013 None Full Exam - Genitourinary/Female Genitourinary bladder Palpation: no masses 09/14/2013 None Full Exam - Genitourinary/Female Genitourinary vagina Overall: no discharge 09/14/2013 None Full Exam - Genitourinary/Female Genitourinary vagina Overall: no lesions 09/14/2013 None Full Exam - Genitourinary/Female Genitourinary vagina Introitus: normal appearance 09/14/2013 None Full Exam - Genitourinary/Female Genitourinary vagina Vaginal discharge: absent 09/14/2013 None Full Exam - Genitourinary/Female Genitourinary vagina Vagina: no lesions present 09/14/2013 None Full Exam - Genitourinary/Female Genitourinary vagina Vaginal tone: a normal exam 09/14/2013 None Full Exam - Genitourinary/Female Genitourinary cervix Inspection: normal os 09/14/2013 None Full Exam - Genitourinary/Female Genitourinary uterus Overall: normal size 09/14/2013 None Full Exam - Genitourinary/Female Genitourinary uterus Overall: non tender 09/14/2013 None Full Exam - Genitourinary/Female Lymphatic inspection and palpation of nodes Overall: anterior cervical chain benign 09/14/2013 None Full Exam - Genitourinary/Female Lymphatic inspection and palpation of nodes Overall: posterior cervical chain benign 09/14/2013 None Full Exam - Genitourinary/Female Musculoskeletal head and neck Overall: torticolis 09/14/2013 on the left neck - Full Exam - Genitourinary/Female Musculoskeletal head and neck Overall: head atraumatic 09/14/2013 None Full Exam - Genitourinary/Female Musculoskeletal gait and station Overall: normal gait 09/14/2013 None Full Exam - Genitourinary/Female Musculoskeletal gait and station Overall: normal station 09/14/2013 None Full Exam - Genitourinary/Female Integument inspection and palpation of skin Overall: no rash, lesions 09/14/2013 None Full Exam - Genitourinary/Female Neurologic mood and affect Overall: normal mood 09/14/2013 None Full Exam - Genitourinary/Female Neurologic mood and affect Overall: normal affect 09/14/2013 None Full Exam - Genitourinary/Female Neurologic orientation Overall: oriented to person, place and time 09/14/2013 None Full Exam - Genitourinary/Female Psychiatric orientation/consciousness Overall: oriented to person, place and time 09/14/2013 None Full Exam - Genitourinary/Female Chest/Breast breast inspection and palpation Overall: breasts symmetric and without lesions 09/14/2013 None Full Exam - Genitourinary/Female Chest/Breast breast inspection and palpation Overall: normal chest shape 09/14/2013 None Full Exam - General 1994 Constitutional general appearance Overall: well nourished 08/23/2013 None Full Exam - General 1994 Constitutional general appearance Overall: well developed 08/23/2013 None Full Exam - General 1994 Constitutional general appearance Overall: in no acute distress 08/23/2013 None Full Exam - General 1994 Psychiatric orientation/consciousness Overall: oriented to person, place and time 08/23/2013 None Full Exam - General 1994 Psychiatric mood and affect Mood: happy 08/23/2013 None Full Exam - General 1994 Psychiatric mood and affect Overall: normal mood and affect 08/23/2013 None Full Exam - General 1994 Integument inspection of skin Dermatitis: dryness/ flaking 08/23/2013 over what appears to be a hypervascular region of skin tissue with slightly boggy tissue below the surface, purple in color, with flaking skin over the surface, serpiginous borders. - left hip/thigh laterally. Full Exam - ENT Neurologic orientation Overall: oriented to person, place and time 08/09/2013 None Full Exam - ENT Lymphatic palpation of lymph nodes Overall: anterior cervical chain benign 08/09/2013 None Full Exam - ENT Lymphatic palpation of lymph nodes Overall: posterior cervical chain benign 08/09/2013 None Full Exam - ENT Constitutional general appearance Overall: well nourished 08/09/2013 None Full Exam - ENT Constitutional general appearance Overall: well developed 08/09/2013 None Full Exam - ENT Constitutional general appearance Overall: in no acute distress 08/09/2013 None Full Exam - ENT Face and Head palpation Left maxillary sinus: tender 08/09/2013 None Full Exam - ENT Face and Head palpation Right maxillary sinus: tender 08/09/2013 None Full Exam - ENT Respiratory auscultation Overall: breath sounds clear bilaterally 08/09/2013 None Full Exam - ENT Cardiovascular auscultation of heart Overall: regular rate 08/09/2013 None Full Exam - ENT Cardiovascular auscultation of heart Overall: normal heart sounds 08/09/2013 None Full Exam - ENT Cardiovascular auscultation of heart Overall: no murmurs 08/09/2013 None Full Exam - ENT Integument inspection of skin Location: left leg 08/09/2013 vascular lesion left hip-blanches with light pressure-scaley Full Exam - General 1994 Cardiovascular auscultation of heart Overall: normal heart sounds 07/13/2012 None Full Exam - General 1994 Cardiovascular auscultation of heart Overall: no murmurs 07/13/2012 None Full Exam - General 1994 Cardiovascular extremities Overall: no clubbing 07/13/2012 None Full Exam - General 1994 Respiratory auscultation Overall: breath sounds clear bilaterally 07/13/2012 None Full Exam - General 1994 Respiratory respiratory effort/rhythm Overall: normal rate 07/13/2012 None Full Exam - General 1994 Respiratory respiratory effort/rhythm Overall: no retractions 07/13/2012 None Full Exam - General 1994 Abdomen abdominal exam Overall: no tenderness 07/13/2012 None Full Exam - General 1994 Abdomen abdominal exam Overall: normal bowel sounds 07/13/2012 None Full Exam - General 1994 Lymphatic neck nodes Overall: shotty lymphadenopathy 07/13/2012 None Full Exam - General 1994 Musculoskeletal head and neck Overall: cervical spine benign 07/13/2012 None Full Exam - General 1994 Musculoskeletal head and neck Overall: head atraumatic 07/13/2012 None Full Exam - General 1994 Psychiatric orientation/consciousness Overall: oriented to person, place and time 07/13/2012 None Full Exam - General 1994 Psychiatric mood and affect Mood: happy 07/13/2012 None Full Exam - General 1994 Constitutional general appearance Overall: well nourished 07/13/2012 None Full Exam - General 1994 Constitutional general appearance Overall: well developed 07/13/2012 None Full Exam - General 1994 Psychiatric mood and affect Overall: normal mood and affect 07/13/2012 None Full Exam - General 1994 Ears/Nose/Throat oral cavity/pharynx/larynx Overall: oral mucosa clear 07/13/2012 None Full Exam - General 1994 Cardiovascular auscultation of heart Overall: regular rate 07/13/2012 None Full Exam - General 1994 Constitutional general appearance Overall: in no acute distress 07/13/2012 None Full Exam - General 1994 Eyes pupils and irises Overall: pupils equal, round, reactive to light and accomodation 07/13/2012 None Full Exam - General 1994 Ears/Nose/Throat otoscopic exam Overall: tympanic membranes clear 07/13/2012 None Full Exam - General 1994 Ears/Nose/Throat otoscopic exam Overall: external auditory canals clear 07/13/2012 None Full Exam - General 1994 Ears/Nose/Throat lips/teeth/gingiva Overall: benign lips 07/13/2012 None Full Exam - General 1994 Ears/Nose/Throat lips/teeth/gingiva Overall: normal dentition 07/13/2012 None Full Exam - General 1994 Ears/Nose/Throat oral cavity/pharynx/larynx Overall: oropharyngeal mucosa clear 07/13/2012 None Full Exam - General 1994 Ears/Nose/Throat oral cavity/pharynx/larynx Overall: no masses 07/13/2012 None Full Exam - Genitourinary/Female Respiratory respiratory effort/rhythm Overall: no retractions 12/03/2011 None Full Exam - Genitourinary/Female Respiratory respiratory effort/rhythm Overall: normal rate 12/03/2011 None Full Exam - Genitourinary/Female Cardiovascular auscultation of heart Overall: regular rate 12/03/2011 None Full Exam - Genitourinary/Female Cardiovascular auscultation of heart Overall: normal heart sounds 12/03/2011 None Full Exam - Genitourinary/Female Cardiovascular examination of vasculature Overall: no clubbing, cyanosis, edema 12/03/2011 None Full Exam - Genitourinary/Female Abdomen abdominal exam Overall: non tender, non distended 12/03/2011 None Full Exam - Genitourinary/Female Abdomen abdominal exam Overall: normal bowel sounds 12/03/2011 None Full Exam - Genitourinary/Female Abdomen abdominal exam Overall: no mass lesions 12/03/2011 None Full Exam - Genitourinary/Female Genitourinary breast inspection & palpation Overall: breasts symmetric and without lesions 12/03/2011 None Full Exam - Genitourinary/Female Genitourinary breast inspection & palpation Overall: breasts non-tender, no mass lesions 12/03/2011 None Full Exam - Genitourinary/Female Genitourinary breast inspection & palpation Overall: no nipple discharge 12/03/2011 None Full Exam - Genitourinary/Female Genitourinary external genitalia Overall: no discharge 12/03/2011 None Full Exam - Genitourinary/Female Genitourinary external genitalia Overall: no lesions 12/03/2011 None Full Exam - Genitourinary/Female Genitourinary urethral meatus Overall: normal size and location 12/03/2011 None Full Exam - Genitourinary/Female Constitutional general appearance Overall: well nourished 12/03/2011 None Full Exam - Genitourinary/Female Constitutional general appearance Overall: well developed 12/03/2011 None Full Exam - Genitourinary/Female Constitutional general appearance Overall: in no acute distress 12/03/2011 None Full Exam - Genitourinary/Female Eyes conjunctiva/eyelids Overall: conjunctiva clear 12/03/2011 None Full Exam - Genitourinary/Female Eyes pupils and irises Overall: pupils equal, round, reactive to light and accomodation 12/03/2011 None Full Exam - Genitourinary/Female Ears/Nose/Throat otoscopic exam Overall: external auditory canals clear 12/03/2011 None Full Exam - Genitourinary/Female Ears/Nose/Throat otoscopic exam Overall: tympanic membranes clear 12/03/2011 None Full Exam - Genitourinary/Female Ears/Nose/Throat oral cavity/pharynx/larynx Overall: oral mucosa clear 12/03/2011 None Full Exam - Genitourinary/Female Respiratory auscultation Overall: breath sounds clear bilaterally 12/03/2011 None Full Exam - Genitourinary/Female Genitourinary bladder Palpation: non-tender 12/03/2011 None Full Exam - Genitourinary/Female Genitourinary bladder Palpation: no masses 12/03/2011 None Full Exam - Genitourinary/Female Genitourinary vagina Overall: no discharge 12/03/2011 None Full Exam - Genitourinary/Female Genitourinary vagina Overall: no lesions 12/03/2011 None Full Exam - Genitourinary/Female Genitourinary vagina Introitus: normal appearance 12/03/2011 None Full Exam - Genitourinary/Female Genitourinary vagina Vaginal discharge: absent 12/03/2011 None Full Exam - Genitourinary/Female Genitourinary vagina Vagina: no lesions present 12/03/2011 None Full Exam - Genitourinary/Female Genitourinary vagina Vaginal tone: a normal exam 12/03/2011 None Full Exam - Genitourinary/Female Genitourinary cervix Inspection: normal os 12/03/2011 None Full Exam - Genitourinary/Female Genitourinary uterus Overall: normal size 12/03/2011 None Full Exam - Genitourinary/Female Genitourinary uterus Overall: non tender 12/03/2011 None Full Exam - Genitourinary/Female Lymphatic inspection and palpation of nodes Overall: anterior cervical chain benign 12/03/2011 None Full Exam - Genitourinary/Female Lymphatic inspection and palpation of nodes Overall: posterior cervical chain benign 12/03/2011 None Full Exam - Genitourinary/Female Musculoskeletal head and neck Overall: head atraumatic 12/03/2011 None Full Exam - Genitourinary/Female Musculoskeletal gait and station Overall: normal gait 12/03/2011 None Full Exam - Genitourinary/Female Musculoskeletal gait and station Overall: normal station 12/03/2011 None Full Exam - Genitourinary/Female Integument inspection and palpation of skin Overall: no rash, lesions 12/03/2011 None Full Exam - Genitourinary/Female Neurologic mood and affect Overall: normal mood 12/03/2011 None Full Exam - Genitourinary/Female Neurologic mood and affect Overall: normal affect 12/03/2011 None Full Exam - Genitourinary/Female Neurologic orientation Overall: oriented to person, place and time 12/03/2011 None Full Exam - Genitourinary/Female Psychiatric orientation/consciousness Overall: oriented to person, place and time 12/03/2011 None Full Exam - Genitourinary/Female Musculoskeletal head and neck Overall: [place] 12/03/2011 on the left neck - Procedures Procedure Codes Date IMMUNIZATION ADMIN CPT -4: 86096 05/02/2016 IIV4 FLU VACC NO PRESERV ID SNOMED CT: [id number] CPT-4: 01120 05/02/2016 BIOPSY SKIN LESION CPT -4: 58702 11/17/2014 TRIAMCINOLONE ACET INJ NOS CPT-4: J3301 07/14/2014 ROCEPHIN, PER 250 MG CPT-4: J0696 07/14/2014 ROUTINE VENIPUNCTURE CPT-4: 44079 09/24/2013 ROUTINE VENIPUNCTURE CPT-4: 04627 07/13/2012 ROUTINE VENIPUNCTURE CPT-4: 70349 12/10/2011 PREV VISIT EST AGE 40-64 CPT-4: 50709 12/03/2011 Vital Signs Date Vital 08/28/2017 Blood Pressure 1: 106/78 Code : 8480-6 BMI: 31.0 Code : 84095-4 Heart Rate 1 : 89 bpm Height: 5'3" SpO2: 98% Weight: 175 lbs 08/26/2016 Blood Pressure 1: 120/76 Code : 8480-6 BMI: 33.2 Code : 36313-2 Heart Rate 1 : 93 bpm Height: 5'4" SpO2: 96% Weight: 192 lbs 05/02/2016 Blood Pressure 1: 122/80 Code : 8480-6 BMI: 32.8 Code : 32190-5 Heart Rate 1 : 101 bpm Height: 5'4" SpO2: 95% Weight: 190 lbs 02/26/2016 Blood Pressure 1: 142/88 Code : 8480-6 Blood Pressure 1: 124/86 Code: 8480-6 BMI: 32.6 Code: 32923-9 Heart Rate 1: 79 bpm Height: 5'4" SpO2: 97% Weight: 189 lbs 11/02/2015 Blood Pressure 1: 117/82 Code : 8480-6 BMI: 32.3 Code : 60004-5 Heart Rate 1 : 103 bpm Height: 5'4" SpO2: 97% Weight: 187 lbs 09/25/2015 Blood Pressure 1: 124/80 Code : 8480-6 BMI: 32.6 Code : 59947-7 Heart Rate 1 : 88 bpm Height: 5'4" SpO2: 97% Weight: 189 lbs 08/10/2015 Blood Pressure 1: 132/82 Code : 8480-6 BMI: 32.1 Code : 91502-9 Heart Rate 1 : 100 bpm Height: 5'4" SpO2: 95% Weight: 186 lbs 05/24/2015 Blood Pressure 1: 102/70 Code : 8480-6 BMI: 31.3 Code : 80095-6 Heart Rate 1 : 104 bpm Height: 5'4" SpO2: 97% Weight: 181 lbs 5 oz 11/17/2014 Blood Pressure 1: 132/94 Code : 8480-6 BMI: 31.1 Code : 18177-1 Heart Rate 1 : 100 bpm Height: 5'4" SpO2: 98% Weight: 180 lbs 11/09/2014 Blood Pressure 1: 140/88 Code : 8480-6 BMI: 31.1 Code : 00701-5 Heart Rate 1 : 80 bpm Height: 5'4" Weight: 180 lbs 07/14/2014 Blood Pressure 1: 124/78 Code : 8480-6 BMI: 30.2 Code : 75964-6 Heart Rate 1 : 76 bpm Height: 5'4" Weight: 175 lbs 03/07/2014 Blood Pressure 1: 118/70 Code : 8480-6 BMI: 29.2 Code : 81612-8 Heart Rate 1 : 80 bpm Height: 5'4" Weight: 169 lbs 02/03/2014 Blood Pressure 1: 112/82 Code : 8480-6 BMI: 28.5 Code : 93577-1 Heart Rate 1 : 96 bpm Height: 5'4" Weight: 165 lbs 09/14/2013 Blood Pressure 1: 112/78 Code : 8480-6 BMI: 28.3 Code : 21755-3 Heart Rate 1 : 72 bpm Height: 5'4" Weight: 164 lbs 08/23/2013 Blood Pressure 1: 116/78 Code : 8480-6 Heart Rate 1: 80 bpm Weight: 163 lbs 08/09/2013 Blood Pressure 1: 142/78 Code : 8480-6 BMI: 28.2 Code : 49094-0 Heart Rate 1 : 75 bpm Height: 5'4" Weight: 163 lbs 07/13/2012 Blood Pressure 1: 128/84 Code : 8480-6 Heart Rate 1: 88 bpm Respiratory Rate : 16 bpm Weight: 164 lbs 8 oz 12/03/2011 Blood Pressure 1: 112/78 Code : 8480-6 BMI: 26.6 Code : 20631-6 Heart Rate 1 : 66 bpm Height: 5'4" Respiratory Rate: 16 bpm Weight: 154 lbs Functional Status No Functional Status data History of Present Illness Symptom Name Status Result Effective Date Notes hypertension Onset and Resolution ongoing 08/28/2017 None hypertension Onset of Symptom during adulthood 08/28/2017 None hypertension Blood Pressure Values pt checking blood pressure - see scanned document 08/28/2017 None hypertension Alleviating Factors medication 08/28/2017 None hypertension Pertinent Findings Denies dyspnea 08/28/2017 None hypertension Pertinent Findings Denies edema 08/28/2017 None hypertension Pertinent Findings Denies dizziness 08/28/2017 None hypertension Pertinent Findings Denies anxiety 08/28/2017 None hypertension Pertinent Findings Denies decreased energy 08/28/2017 None hypertension Onset and Resolution ongoing 08/26/2016 None hypertension Onset of Symptom during adulthood 08/26/2016 None hypertension Blood Pressure Values pt checking blood pressure - see scanned document 08/26/2016 None hypertension Alleviating Factors medication 08/26/2016 None hypertension Pertinent Findings Denies dyspnea 08/26/2016 None hypertension Pertinent Findings Denies edema 08/26/2016 None pain Location-Major on the upper body 08/26/2016 None pain Location-Trunk on the left mid chest 08/26/2016 None pain Onset of Symptom 2 weeks ago 08/26/2016 None pain Limitation on Activities moderately limits activities 08/26/2016 None hypertension Onset and Resolution ongoing 05/02/2016 wants clearance to go to [facility] hypertension Onset of Symptom during adulthood 05/02/2016 None hypertension Blood Pressure Values pt checking blood pressure - see scanned document 05/02/2016 None hypertension Alleviating Factors medication 05/02/2016 None hypertension Pertinent Findings Denies edema 05/02/2016 None hypertension Pertinent Findings Denies dyspnea 05/02/2016 None hypertension Onset and Resolution ongoing 02/26/2016 None hypertension Onset of Symptom during adulthood 02/26/2016 None hypertension Blood Pressure Values pt checking blood pressure - see scanned document 02/26/2016 None hypertension Alleviating Factors medication 02/26/2016 None hypertension Pertinent Findings dizziness 02/26/2016 -today- hypertension Pertinent Findings Denies dyspnea 02/26/2016 None hypertension Pertinent Findings Denies edema 02/26/2016 None hypertension Onset and Resolution ongoing 11/02/2015 None hypertension Blood Pressure Values pt checking blood pressure - see scanned document 11/02/2015 None hypertension Alleviating Factors medication 11/02/2015 None hypertension Onset of Symptom during adulthood 11/02/2015 None hypertension Pertinent Findings dizziness 11/02/2015 -today- hypertension Pertinent Findings Denies dyspnea 11/02/2015 None hypertension Pertinent Findings Denies edema 11/02/2015 None medication follow up Additional Comments medication use 09/25/2015 None medication follow up Location oral intake 09/25/2015 None hypertension Onset and Resolution ongoing 08/10/2015 None hypertension Onset of Symptom 3 weeks ago 08/10/2015 None hypertension Blood Pressure Values pt checking blood pressure - see scanned document 08/10/2015 None office procedure Procedure to be performed _ 11/17/2014 excision of skin lesion mid-chest - left side office procedure Reason for Procedure changing mole 11/17/2014 None office procedure Additional Comments history of excessive sun exposure with sun-singleton 11/17/2014 None well woman exam (40-65 years) Menstrual History irregular menses 11/09/2014 None well woman exam (40-65 years) Lifestyle no history of physical abuse 11/09/2014 None well woman exam (40-65 years) Control partner S/P vasectomy 11/09/2014 None well woman exam (40-65 years) Control menopause 11/09/2014 None well woman exam (40-65 years) Nutrition and Exercise normal weight 11/09/2014 None well woman exam (40-65 years) Nutrition and Exercise balanced nutrition 11/09/2014 None well woman exam (40-65 years) Nutrition and Exercise minimal exercise 11/09/2014 None well woman exam (40-65 years) Obstetrical History 3 total pregnancies 11/09/2014 None well woman exam (40-65 years) Obstetrical History 2 full term 11/09/2014 None well woman exam (40-65 years) Obstetrical History 1 spontaneous 11/09/2014 None well woman exam (40-65 years) Obstetrical History 2 living children 11/09/2014 None well woman exam (40-65 years) Cardiovascular Risk Factors family history of cardiovascular disease None well woman exam (40-65 years) Health Guidance self-breast exam 11/09/2014 None well woman exam (40-65 years) Health Guidance baseline mammogram 11/09/2014 None well woman exam (40-65 years) Health Guid[facility] depression symptoms 11/09/2014 None skin lesion Onset of Symptom 2 years ago 11/09/2014 upper left chest- itches, no pain sinus congestion Pertinent Findings cough 07/14/2014 None sinus congestion Pertinent Findings Denies fever 07/14/2014 None sinus congestion Quality acute 07/14/2014 None sinus congestion Onset and Resolution ongoing 07/14/2014 None sinus congestion Onset of Symptom 1 weeks ago 07/14/2014 None sinus congestion Severity moderate 07/14/2014 None sinus congestion Frequency of Episodes increasing 07/14/2014 None sinus congestion Significant Medications decongestants 07/14/2014 None sinus congestion Triggers no known associated factors 07/14/2014 None sinus congestion Alleviating Factors medication 07/14/2014 None sinus congestion Location on both sides 07/14/2014 None sinus congestion Pertinent Findings decreased energy level 07/14/2014 None sinus congestion Pertinent Findings facial pain 07/14/2014 pressure sinus congestion Pertinent Findings Denies vomiting 07/14/2014 None anxiety Quality improving 03/07/2014 - pt states that the increase in the paxil dose has helped, but just over the past few days she has had an increase in her anxiety with increased tearfulness - anxiety Onset and Resolution ongoing 03/07/2014 None anxiety Limitation on Activities moderately limits activities 03/07/2014 None anxiety Triggers stress 03/07/2014 None anxiety Alleviating Factors medication 03/07/2014 None anxiety Pertinent Findings Denies dizziness 03/07/2014 None anxiety Pertinent Findings Denies dyspnea 03/07/2014 None anxiety Pertinent Findings insomnia 03/07/2014 awaken during the night several times anxiety Pertinent Findings Denies nausea 03/07/2014 None anxiety Quality acute 02/03/2014 None anxiety Pertinent Findings palpitations 02/03/2014 None anxiety Pertinent Findings nightmares 02/03/2014 None anxiety Frequency of Episodes increasing 02/03/2014 states she has trouble falling asleep. anxiety Onset and Resolution ongoing 02/03/2014 None anxiety Onset of Symptom during adulthood 02/03/2014 None anxiety Limitation on Activities does not limit activities 02/03/2014 None anxiety Significant Family History anxiety disorder 02/03/2014 None anxiety Significant Family History depression 02/03/2014 None anxiety Triggers stress 02/03/2014 None anxiety Pertinent Findings Denies dizziness 02/03/2014 None well woman exam (40-65 years) Menstrual History irregular menses 09/14/2013 spotted in January well woman exam (40-65 years) Lifestyle no history of physical abuse 09/14/2013 None well woman exam (40-65 years) Control partner S/P vasectomy 09/14/2013 None well woman exam (40-65 years) Control menopause 09/14/2013 None well woman exam (40-65 years) Nutrition and Exercise normal weight 09/14/2013 None well woman exam (40-65 years) Nutrition and Exercise balanced nutrition 09/14/2013 None well woman exam (40-65 years) Nutrition and Exercise minimal exercise 09/14/2013 None well woman exam (40-65 years) Obstetrical History 3 total pregnancies 09/14/2013 None well woman exam (40-65 years) Obstetrical History 2 full term 09/14/2013 None well woman exam (40-65 years) Obstetrical History 1 spontaneous 09/14/2013 None well woman exam (40-65 years) Obstetrical History 2 living children 09/14/2013 None well woman exam (40-65 years) Cardiovascular Risk Factors family history of cardiovascular disease None well woman exam (40-65 years) Health Guidance self-breast exam 09/14/2013 None well woman exam (40-65 years) Health Guidance baseline mammogram 09/14/2013 None well woman exam (40-65 years) Health Guidance depression symptoms 09/14/2013 None skin lesion Quality raised 08/23/2013 None skin lesion Quality enlarging 08/23/2013 None skin lesion Onset of Symptom 1 months ago 08/23/2013 None skin lesion Location left gluteus 08/23/2013 None skin lesion Quality red 08/23/2013 tender skin lesion Location Left Hip 08/09/2013 None skin lesion Onset of Symptom 3 weeks ago 08/09/2013 None skin lesion Pertinent Findings Denies fever 08/09/2013 None sore throat Onset of Symptom 4 days ago 08/09/2013 None sore throat Pertinent Findings Denies fever 08/09/2013 None sore throat Pertinent Findings Denies hoarseness 08/09/2013 None sore throat Pertinent Findings nasal congestion 08/09/2013 None sore throat Location on both sides 08/09/2013 None sore throat Quality acute 08/09/2013 None sore throat Onset and Resolution ongoing 08/09/2013 None sore throat Significant Medical Conditions allergic rhinitis 08/09/2013 None sore throat Triggers no known associated factors 08/09/2013 None sore throat Alleviating Factors medication 08/09/2013 None sore throat Pertinent Findings Denies ill contacts 08/09/2013 None sore throat Pertinent Findings Denies lymphadenopathy 08/09/2013 None fullness in the throat Location on the left 07/13/2012 None fullness in the throat Onset and Resolution sudden in onset 07/13/2012 None fullness in the throat Onset of Symptom 2 weeks ago 07/13/2012 states has periods where she can't talk, hoarsness and that has been going on for few months fullness in the throat Quality non- painful 07/13/2012 None fullness in the throat Quality pebbly 07/13/2012 None fullness in the throat Pertinent Findings Denies anxiety 07/13/2012 None fullness in the throat Pertinent Findings Denies aphonia 07/13/2012 None fullness in the throat Pertinent Findings hoarseness 07/13/2012 None fullness in the throat Triggers no known associated factors 07/13/2012 None fullness in the throat Frequency of Episodes increasing 07/13/2012 None well woman exam (40-65 years) Pap Smear normal results 12/03/2011 None well woman exam (40-65 years) Menstrual History irregular menses 12/03/2011 None well woman exam (40-65 years) Obstetrical History 3 total pregnancies 12/03/2011 None well woman exam (40-65 years) Obstetrical History 2 full term 12/03/2011 None well woman exam (40-65 years) Obstetrical History 1 spontaneous 12/03/2011 None well woman exam (40-65 years) Obstetrical History 2 living children 12/03/2011 None well woman exam (40-65 years) Nutrition and Exercise normal weight 12/03/2011 None well woman exam (40-65 years) Control partner S/P vasectomy 12/03/2011 None well woman exam (40-65 years) Cardiovascular Risk Factors family history of cardiovascular disease None well woman exam (40-65 years) Health Guidance self-breast exam 12/03/2011 None well woman exam (40-65 years) Control menopause 12/03/2011 None well woman exam (40-65 years) Breast/[employer] Complaints urinary incontinence 12/03/2011 None well woman exam (40-65 years) Breast/[employer] Complaints menopausal symptoms 12/03/2011 None well woman exam (40-65 years) Health Guidance baseline mammogram 12/03/2011 None well woman exam (40-65 years) Health Guidance depression symptoms 12/03/2011 None well woman exam (40-65 years) Lifestyle no history of physical abuse 12/03/2011 None well woman exam (40-65 years) Nutrition and Exercise balanced nutrition 12/03/2011 None well woman exam (40-65 years) Nutrition and Exercise minimal exercise 12/03/2011 None Advance Directives No Advance Directive data Encounters Encounter Performer Location Codes Date ([id number]) PREV VISIT EST AGE 40-64 Diagnosis: Encounter for general adult medical examination without abnormal findings[ICD10: Z00.00] [facility] CPT-4: 05609 08/28/[id number]) [id number] EST. PATIENT, LEVEL III Diagnosis: Essential (primary) hypertension[ICD10: I10] Diagnosis: Intercostal pain[ICD10: R07.82] [facility] CPT- 4: 43528 08/26/2016 [id number]) [id number] EST. PATIENT, LEVEL II Diagnosis: Essential (primary) hypertension[ICD10: I10] Sandrita Castanon MD, [facility] CPT-4: 36822 05/02/2016 ([id number]) PREV VISIT EST AGE 40-64 Diagnosis: Encounter for general adult medical examination without abnormal findings[ICD10: Z00.00] Carolina Castanon MD [facility] CPT-4: 52673 02/26/2016 ([id number]) 98550 EST. PATIENT, LEVEL III Diagnosis: Essential (primary) hypertension[ICD10: I10] Carolina Castanon MD [facility] CPT-4: 81133 11/02/2015 [id number] EST. PATIENT, LEVEL III Diagnosis: Essential (primary) hypertension[ICD10: I10] Florencia Castanon MD, [facility] CPT-4: 50157 09/25/2015 63800 EST. PATIENT, LEVEL III Diagnosis: Essential (primary) hypertension[ICD10: I10] Diagnosis: Tachycardia, unspecified[ICD10: R00.0] Florencia Castanon MD, [facility] CPT-4: 23154 08/10/2015 ([id number]) 14960 EST. PATIENT, LEVEL III Diagnosis: Malignant neoplasm of unspecified site of left female breast[ICD10: C50.912] Diagnosis: Other specified disorders of breast[ICD10: N64.89] Carolina Castanon MD, [facility] CPT-4: 83292 05/24/2015 ([id number]) Miscellaneous no charge Diagnosis: Basal cell carcinoma of anterior chest[ICD9: 173.51] Carolina Castanon MD [facility] CPT-4: 88223 11/28/2014 ([id number]) PREV VISIT EST AGE 40-64 Diagnosis: ROUTINE GYNE EXAM[ICD9: V72.31] Carolina Castanon MD, [facility] CPT- 4: 81313 11/09/2014 ([id number]) 04247 EST. PATIENT, LEVEL III Diagnosis: Acute maxillary sinusitis[ICD9: 461.0] Diagnosis: COUGH[ICD9: 786.2] Sandrita Castanon MD, [facility] CPT-4: 35102 07/14/2014 ([id number]) 85319 EST. PATIENT, LEVEL III Diagnosis: Generalized anxiety disorder[ICD9: 300.02] Diagnosis: DEPRESSIVE DISORDER NEC[ICD9: 311] Carolina Castanon MD, [facility] CPT-4: 64537 03/07/2014 ([id number]) 11334 EST. PATIENT, LEVEL III Diagnosis: ANXIETY STATE[ICD9: 300.00] Diagnosis: DEPRESSIVE DISORDER NEC[ICD9: 311] Sandrita Castanon MD, [facility] CPT-4: 40690 02/03/2014 ([id number]) PREV VISIT EST AGE 40-64 Diagnosis: Well woman exam with routine gynecological exam[ICD9: V72.31] Carolina Castanon MD, [facility] CPT-4: 78052 09/14/2013 ([id number]) [id number] EST. PATIENT, LEVEL III Diagnosis: NONSPECIF SKIN ERUPT NEC[ICD9: 782.1] Carolina Castanon MD, [facility] CPT-4: 44045 08/23/2013 ([id number]) [id number] EST. PATIENT, LEVEL III Diagnosis: Acute sinusitis[ICD9: 461.9] Diagnosis: Rash[ICD9: 782.1] Carolina Castanon MD, [facility] CPT-4: 08319 08/09/2013 ([id number]) [id number] EST. PATIENT, LEVEL III Diagnosis: COUGH[ICD9: 786.2] Diagnosis: ESOPHAGEAL REFLUX[ICD9: 530.81] Carolina Castanon MD, [facility] CPT- 4: 24830 07/13/2012 Plan of Care Planned Activity Notes Codes Status Date Visit Plan: Well Adult - pt was counseled about diet, exercise, and encouraged to follow a heart healthy diet and increase activity level. The patient was instructed to RTC yearly for well adult exams and PRN for acute illnesses. The pt was also instructed to have yearly labs for check of cholesterol, thyroid, chem panel, CBC, and renal functioning. Hypertension - well controlled - continue with current medications, continue with no added salt diet. Pt has been encouraged to exercise daily. The pt has been advised to call the office if there are any acute concerns about change in blood pressure readings at home. continue with plans for weight loss - pt has lost 20 pounds in the past year. 08/28/2017 Patient Education: Patient Medication Summary Completed 08/28/2017 Visit Plan: Hypertension - well controlled - continue with current medications, continue with no added salt diet. Pt has been encouraged to exercise daily. The pt has been advised to call the office if there are any acute concerns about change in blood pressure readings at home. Left rib pain - use capscacin cream to ribs - call if not improving 08/26/2016 Appointment: Carolina Castanon WPtel: [phone] [phone] (30 min) Complex 08/26/2016 Patient Education: Patient Medication Summary Completed 08/26/2016 Patient Education: Obesity Completed 08/26/2016 Care Plan: COMPLETE CBC AUTOMATED LOINC : 01223-5 Pending 08/26/2016 Visit Plan: QWZ-yfheaulopf-oy contraindications for wellness-paperwork completed and given to patient Influenza vaccine today in the office 05/02/2016 Appointment: Sandrita Martinez WPtel: [phone] [phone] (30 min) Complex 05/02/2016 Patient Education: Patient Medication Summary Completed 05/02/2016 Patient Education: Obesity Completed 05/02/2016 Visit Plan: Well Adult - pt was counseled about diet, exercise, and encouraged to follow a heart healthy diet and increase activity level. The patient was instructed to RTC yearly for well adult exams and PRN for acute illnesses. The pt was also instructed to have yearly labs for check of cholesterol, thyroid, chem panel, CBC, and renal functioning. Breast fullness - suspect cyst at incision site - recommend pt to see Dr. Dillon for eval of the lesion on the breast. Hypertension - well controlled - continue with current medications, continue with no added salt diet. Pt has been encouraged to exercise daily. The pt has been advised to call the office if there are any acute concerns about change in blood pressure readings at home. 02/26/2016 Appointment: Carolina Castanon WPtel: [phone] [phone] (15 min) Moderate 02/26/2016 Patient Education: Patient Medication Summary Completed 02/26/2016 Patient Education: Obesity Completed 02/26/2016 Visit Plan: Hypertension - well controlled - continue with current medications, continue with no added salt diet. Pt has been encouraged to exercise daily. The pt has been advised to call the office if there are any acute concerns about change in blood pressure readings at home. 11/02/2015 Patient Education: Patient Medication Summary Completed 11/02/2015 Patient Education: Obesity Completed 11/02/2015 Patient Education: Hypertension Completed 11/02/2015 Visit Plan: Hypertension - uncontrolled - Pt's Systolic has been in the 110s-140s and diastolic has been in the 90s-100s and the HR has improved and is in the 70s-80s. The patient's medications have been modified as documented in the visit note. The patient has been counseled to cut back on salt in diet for a no added salt diet, low fat diet, start an exercise program with low weight bearing exercises and higher aerobic activity for heart health. The patient is to check blood pressure readings as an outpatient and either fax , call, or email the readings to the office next week for practitioner to review. The pt is to call for acute concerns. 09/25/2015 Appointment: (30 min) Complex 09/25/2015 Patient Education: Patient Medication Summary Completed 09/25/2015 Patient Education: Hypertension Completed 09/25/2015 Visit Plan: Hypertension - uncontrolled - Pt's Systolic has been in the 110s-140s and diastolic has been in the 90s-100s and the HR in the upper 90s-120. the patient's medications have been modified as documented in the visit note. The patient has been counseled to cut back on salt in diet for a no added salt diet, low fat diet, start an exercise program with low weight bearing exercises and higher aerobic activity for heart health. The patient is to check blood pressure readings as an outpatient and either fax, call, or email the readings to the office next week for practitioner to review. The pt is to call for acute concerns. 08/10/2015 Patient Education: Patient Medication Summary Completed 08/10/2015 Patient Education: Hypertension Completed 08/10/2015 Visit Plan: Breast edema- discussed need for patient to support her breast when lying down, may need to try to figure out how to support her breast to prevent edema when lying down at night. It would be best for the patient to lie on her back with a supportive bra on when she is lying down at night to sleep. If she has to sleep on her side, perhaps supporting the left breast with a towel between her breasts. Keep appt with [facility] for second opinion. 05/24/2015 Appointment: Carolina Castanon WPtel: [phone] [phone] (15 min) Moderate 05/24/2015 Patient Education: Patient Medication Summary Completed 05/24/2015 Visit Plan: sutures removed, pt previously informed of results of completely excised skin cancer. 11/28/2014 Appointment: Nurse Visit 11/28/2014 Patient Education: Patient Medication Summary Completed 11/28/2014 Visit Plan: biopsy - center/mid chest - suture marker placed in the left apex of the lesion 6 sutures used. Wound Instructions - Pt was instructed to keep the wound clean, wash with antibacterial soap, use triple antibiotic ointment, call if redness, pustular drainage, or any other acute concerns. 11/17/2014 Appointment: Carolina Castanon WPtel: [phone] [phone] Surgical Procedure 11/17/2014 Patient Education: Patient Medication Summary Completed 11/17/2014 Visit Plan: Well Adult Female - exam completed. Pap and gc/ chlamydia and breast exam completed. Pt will be called with results of her testing. She was advised to continue with yearly annual exams. Safe sex practices discussed during office visit today. Call if any abnormal gynecologic issues during the next year, otherwise, RTC yearly or prn. Non-healing wound on left breast at biopsy site - recommended use of bactroban ointment bid x 1 week or until the tissue becomes supple, then use medihoney on the wound until healed. Hypertension - uncontrolled - the patient has been started on LOASARTN. The patient has been counseled to cut back on salt in diet for a no added salt diet, low fat diet, start an exercise program with low weight bearing exercises and higher aerobic activity for heart health. The patient is to check blood pressure readings as an outpatient and either fax, call, or email the readings to the office next week for practitioner to review. The pt is to call for acute concerns. 11/09/2014 Patient Education: Patient Medication Summary Completed 11/09/2014 Patient Education: Hypertension Completed 11/09/2014 Care Plan: PAP Pending 11/09/2014 Visit Plan: Sinusitis - Pt has acute infection - pain in face, maxillary region, Pt informed to use decongestant, RX given to patient, sinus rinses also recommended. Call if symptoms do not show improvement. Rocephin and kenalog injections today in the office for acute symptoms. 07/14/2014 Patient Education: Patient Medication Summary Completed 07/14/2014 Visit Plan: Anxiety and Depression- the patient has uncontrolled anxiety and will benefit from a change in the dosing of her SSRI to increase up to twice daily basis to attempt control of the symptoms of anxiety (tachycardia, overwhelming sensations, stress, insomnia, etc). I also believe that the patient will benefit from very low dose of prn benzodiazepine. Pt is aware of the risks and benefits of treatment with the above medications. 03/07/2014 Appointment: Carolina Castanon WPtel: [phone] [phone] Follow up 03/07/2014 Patient Education: Patient Medication Summary Completed 03/07/2014 Visit Plan: Uncontrolled anxiety and depression-Plan to increase paxil to 40mg daily to attempt control of the symptoms of anxiety ( tachycardia, overwhelming sensations, stress, insomnia, etc). I also believe that the patient will benefit from very low dose of prn benzodiazepine. Pt is aware of the risks and benefits of treament with the above medications. Plan to use xanax as needed temporarily until patient symptoms better controlled. 02/03/2014 Appointment: Other 02/03/2014 Patient Education: Patient Medication Summary Completed 02/03/2014 Patient Education: Patient Medication Summary Completed 09/24/2013 Visit Plan: Well Adult Female - exam completed. Pap and gc/ chlamydia and breast exam completed. Pt will be called with results of her testing. She was advised to continue with yearly annual exams. Safe sex practices discussed during office visit today. Call if any abnormal gynecologic issues during the next year, otherwise, RTC yearly or prn Pt needs cbc, chem 12 , lipids, tsh, mammogram 09/14/2013 Appointment: Carolina Castanon WPtel: [phone] [phone] Well Woman 09/14/2013 Patient Education: Patient Medication Summary Completed 09/14/2013 Visit Plan: Skin Lesion - Dr. Dillon in to see patient today - he recommended watchful waiting - if the lesion has not resolved in the next 1 month - she is to make an appt in his clinic for removal. 08/23/2013 Appointment: Carolina Castanon WPtel: [address] [place], [place] [phone] Follow up 08/23/2013 Patient Education: Patient Medication Summary Completed 08/23/2013 Visit Plan: Sinusitis - Pt has acute infection - pain in face, maxillary region, Pt informed to use decongestant, RX given to patient, sinus rinses also recommended. Call if symptoms do not show improvement. Rash- vascular lesion-Dr Castanon in to evaluate patient-plan for nystatin/ triamcinolone cream to affected area-recommend biopsy of lesion if it does not resolve with treatment. 08/09/2013 Appointment: Sandrita Martinez WPtel: [facility] [phone] Other 08/09/2013 Patient Education: Patient Medication Summary Completed 08/09/2013 Visit Plan: Throat fullness- recommended pt to have ct of the neck and pt to start on aciphex sample 20 mg daily. Esophageal Reflux - the patient has been counseled against excessive intake of caffiene, spicy foods, peppermint, and cinnamon - all of which can exacerbate esophageal reflux. The patient is to take medications as prescribed and call the office if the symptoms are not improving. 07/13/2012 Appointment: Carolina Castanon WPtel: [address] [place], [place] [phone] Other 07/13/2012 Patient Education: Patient Medication Summary Completed 07/13/2012 Appointment: Carolina Castanon WPtel: [address] [place], [place] [phone] Lab Draw 12/10/2011 Patient Education: Patient Medication Summary Completed 12/10/2011 Visit Plan: Well Adult Female - exam completed. Pap and gc/ chlamydia and breast exam completed. Pt will be called with results of her testing. She was advised to continue with yearly annual exams. Safe sex practices discussed during office visit today. Call if any abnormal gynecologic issues during the next year, otherwise, RTC yearly or prn. Chronic Depression and anxiety - the pt has symptoms of chronic anxiety and depression that have been fairly well controlled since the last office visit. The pt has expected periods of exacerbation with abatement of the symptoms with change in situational exposure. No change in current medications. Torticollis - recommended pt to consider a physical medicine/rehab eval - I think she would benefit from an evaluation and possible manipulation or injection of botox into the constricted muscle. 12/03/2011 Appointment: Carolina Castanon WPtel[phone] [facility] REMINDED INS CARDS, ID New Patient 12/03/2011 Patient Education: Patient Medication Summary Completed 12/03/2011 Instructions Comment . biopsy - center/mid chest - suture marker placed in the left apex of the lesion 6 sutures used. Wound Instructions - Pt was instructed to keep the wound clean, wash with antibacterial soap, use triple antibiotic ointment, call if redness, pustular drainage, or any other acute concerns. . Well Adult - pt was counseled about diet, exercise, and encouraged to follow a heart healthy diet and increase activity level. The patient was instructed to RTC yearly for well adult exams and PRN for acute illnesses. The pt was also instructed to have yearly labs for check of cholesterol, thyroid, chem panel, CBC, and renal functioning. Hypertension - well controlled - continue with current medications, continue with no added salt diet. Pt has been encouraged to exercise daily. The pt has been advised to call the office if there are any acute concerns about change in blood pressure readings at home. continue with plans for weight loss - pt has lost 20 pounds in the past year. . Well Adult - pt was counseled about diet, exercise, and encouraged to follow a heart healthy diet and increase activity level. The patient was instructed to RTC yearly for well adult exams and PRN for acute illnesses. The pt was also instructed to have yearly labs for check of cholesterol, thyroid, chem panel, CBC, and renal functioning. Breast fullness - suspect cyst at incision site - recommend pt to see Dr. Dillon for eval of the lesion on the breast. Hypertension - well controlled - continue with current medications, continue with no added salt diet. Pt has been encouraged to exercise daily. The pt has been advised to call the office if there are any acute concerns about change in blood pressure readings at home. . Breast edema- discussed need for patient to support her breast when lying down, may need to try to figure out how to support her breast to prevent edema when lying down at night. It would be best for the patient to lie on her back with a supportive bra on when she is lying down at night to sleep. If she has to sleep on her side, perhaps supporting the left breast with a towel between her breasts. Keep appt with [facility] for second opinion. . Skin Lesion - Dr. Dillon in to see patient today - he recommended watchful waiting - if the lesion has not resolved in the next 1 month - she is to make an appt in his clinic for removal. . Sinusitis - Pt has acute infection - pain in face, maxillary region, Pt informed to use decongestant, RX given to patient, sinus rinses also recommended. Call if symptoms do not show improvement. Rocephin and kenalog injections today in the office for acute symptoms. . Hypertension - uncontrolled - Pt's Systolic has been in the 110s-140s and diastolic has been in the 90s-100s and the HR in the upper 90s -120. the patient's medications have been modified as documented in the visit note. The patient has been counseled to cut back on salt in diet for a no added salt diet, low fat diet, start an exercise program with low weight bearing exercises and higher aerobic activity for heart health. The patient is to check blood pressure readings as an outpatient and either fax , call, or email the readings to the office next week for practitioner to review. The pt is to call for acute concerns. Increase to the full pill in the morning, do not take if top number of the blood pressure is less 100 or heart rate is less than 60 . Hypertension - uncontrolled - Pt's Systolic has been in the 110s-140s and diastolic has been in the 90s-100s and the HR has improved and is in the 70s- 80s. The patient's medications have been modified as documented in the visit note. The patient has been counseled to cut back on salt in diet for a no added salt diet, low fat diet, start an exercise program with low weight bearing exercises and higher aerobic activity for heart health. The patient is to check blood pressure readings as an outpatient and either fax , call, or email the readings to the office next week for practitioner to review. The pt is to call for acute concerns. . Well Adult Female - exam completed. Pap and gc/ chlamydia and breast exam completed. Pt will be called with results of her testing. She was advised to continue with yearly annual exams. Safe sex practices discussed during office visit today. Call if any abnormal gynecologic issues during the next year, otherwise, RTC yearly or prn. Non-healing wound on left breast at biopsy site - recommended use of bactroban ointment bid x 1 week or until the tissue becomes supple, then use medihoney on the wound until healed. Hypertension - uncontrolled - the patient has been started on LOASARTN. The patient has been counseled to cut back on salt in diet for a no added salt diet , low fat diet, start an exercise program with low weight bearing exercises and higher aerobic activity for heart health. The patient is to check blood pressure readings as an outpatient and either fax , call, or email the readings to the office next week for practitioner to review. The pt is to call for acute concerns. change metoprolol tartate to 1/2 pill twice daily. . Hypertension - well controlled - continue with current medications, continue with no added salt diet. Pt has been encouraged to exercise daily. The pt has been advised to call the office if there are any acute concerns about change in blood pressure readings at home. . Anxiety and Depression- the patient has uncontrolled anxiety and will benefit from a change in the dosing of her SSRI to increase up to twice daily basis to attempt control of the symptoms of anxiety (tachycardia , overwhelming sensations, stress, insomnia, etc). I also believe that the patient will benefit from very low dose of prn benzodiazepine. Pt is aware of the risks and benefits of treatment with the above medications. . Well Adult Female - exam completed. Pap and gc/ chlamydia and breast exam completed. Pt will be called with results of her testing. She was advised to continue with yearly annual exams. Safe sex practices discussed during office visit today. Call if any abnormal gynecologic issues during the next year, otherwise, RTC yearly or prn Pt needs cbc, chem 12, lipids, tsh, mammogram . QYA-gibmntecno-to contraindications for wellness- paperwork completed and given to patient Influenza vaccine today in the office . Well Adult Female - exam completed. Pap and gc/ chlamydia and breast exam completed. Pt will be called with results of her testing. She was advised to continue with yearly annual exams. Safe sex practices discussed during office visit today. Call if any abnormal gynecologic issues during the next year, otherwise, RTC yearly or prn. Chronic Depression and anxiety - the pt has symptoms of chronic anxiety and depression that have been fairly well controlled since the last office visit. The pt has expected periods of exacerbation with abatement of the symptoms with change in situational exposure. No change in current medications. Torticollis - recommended pt to consider a physical medicine/rehab eval - I think she would benefit from an evaluation and possible manipulation or injection of botox into the constricted muscle. . sutures removed, pt previously informed of results of completely excised skin cancer. Left rib pain - use capscacin cream to ribs - call if not improving. Hypertension - well controlled - continue with current medications, continue with no added salt diet. Pt has been encouraged to exercise daily. The pt has been advised to call the office if there are any acute concerns about change in blood pressure readings at home. Left rib pain - use capscacin cream to ribs - call if not improving start on aciphex [address] scan of neck ordered. Throat fullness- recommended pt to have ct of the neck and pt to start on aciphex sample 20 mg daily. Esophageal Reflux - the patient has been counseled against excessive intake of caffiene, spicy foods, peppermint, and cinnamon - all of which can exacerbate esophageal reflux. The patient is to take medications as prescribed and call the office if the symptoms are not improving. . Sinusitis - Pt has acute infection - pain in face, maxillary region, Pt informed to use decongestant, RX given to patient, sinus rinses also recommended. Call if symptoms do not show improvement. Rash-vascular lesion-Dr Castanon in to evaluate patient-plan for nystatin/ triamcinolone cream to affected area-recommend biopsy of lesion if it does not resolve with treatment. . Uncontrolled anxiety and depression-Plan to increase paxil to 40mg daily to attempt control of the symptoms of anxiety (tachycardia, overwhelming sensations, stress, insomnia, etc). I also believe that the patient will benefit from very low dose of prn benzodiazepine. Pt is aware of the risks and benefits of treament with the above medications. Plan to use xanax as needed temporarily until patient symptoms better controlled.
--- OUTSIDE RECORDS SUMMARY | 2017-09-10 10:59 | XMS REPORT | Continuity of Care Document ---
Author Author [facility] Organization [facility] Address Unknown Phone Unavailable Allergies Active Description Code Type Severity Reaction Onset Reported/Identified Relationship to Patient Clinical Status Yes No Known Drug Allergies [id number] Drug Allergy Unknown N/A 08/19/2012 Yes adhesive tape [id number] Drug Allergy Mild RASH 09/04/2017 Medications There is no data. 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 09/20/2014 LASHAWN SORIA, SONIDO Cho Ot 611.72 09/22/2014 MUKESH PRITCHARD Ot 611.79 09/28/2014 MUKESH PRITCHARD Ot 611.79 10/06/2014 SONIDO HARDIN MD Ot 611.72 10/06/2014 Ot 174.9 MALIGN NEOPL BREAST NOS 11/01/2014 ROLANDO RUVALCABA MD Ot 174.9 11/11/2014 MUKESH PRITCHARD Ot 611.79 11/25/2014 ROLANDO RUVALCABA MD Ot 174.9 11/29/2014 Ot 174.9 11/29/2014 Ot V72.84 12/25/2014 ROLANDO RUVALCABA MD Ot 174.9 MALIGN NEOPL BREAST NOS 12/25/2014 ROLANDO RUVALCABA MD Ot V58.0 ENCOUNTER FOR RADIOTHERAPY 12/27/2014 ROLANDO RUVALCABA MD Ot 174.9 12/27/2014 ROLANDO RUVALCABA MD Ot 174.9 12/27/2014 ROLANDO RUVALCABA MD Ot 174.9 12/28/2014 ROLANDO RUVALCABA MD Ot 174.9 01/05/2015 Ot 721.0 01/05/2015 Ot 782.0 01/05/2015 Ot 784.42 01/05/2015 Ot 784.99 01/05/2015 Ot 786.2 01/05/2015 Ot V72.84 01/05/2015 Ot 478.70 01/05/2015 Ot V72.63 01/05/2015 Ot V72.81 01/05/2015 Ot V72.83 01/05/2015 Ot V74.8 01/05/2015 LASHAWN SORIA, SONIDO Cho Ot 793.89 01/05/2015 LASHAWN SORIA, SONIDO Cho Ot V76.12 01/05/2015 MUKESH PRITCHARD PENAL OFFICER Ot 793.89 01/05/2015 MUKESH PRITCHARD PENAL OFFICER Ot 786.6 01/05/2015 MUKESH PRITCHARD PENAL OFFICER Ot 793.89 01/05/2015 LASHAWN SORIA, SONIDO Cho Ot 793.80 01/05/2015 LASHAWN SORIA, SONIDO Cho Ot 611.72 01/05/2015 MUKESH PRITCHARD PENAL OFFICER Ot 611.79 01/05/2015 Ot 174.9 01/05/2015 Ot 174.9 01/05/2015 Ot V72.84 01/05/2015 JORDON SORIA, ROLANDO Sexton Ot 174.9 01/05/2015 JORDON SORIA, ROLANDO Sexton Ot V58.69 01/05/2015 JORDON SORIA, ROLANDO Carlie Ot V58.83 01/09/2015 JORDON SORIA, ROLANDO Sexton Ot V58.69 01/09/2015 JORDON SORIA, ROLANDO Sexton Ot V58.83 01/09/2015 JORDON SORIA, ROLANDO Sexton Ot V58.69 01/09/2015 JORDON SORIA, ROLANDO Sexton Ot V58.83 01/09/2015 JORDON SORIA, ROLANDO Sexton Ot V58.69 01/09/2015 JORDON SORIA, ROLANDO Sexton Ot V58.83 01/18/2015 JORDON SORIA, ROLANDO Sexton Ot 174.9 01/19/2015 DELORIS SORIA, MEENA Ot 174.9 MALIGN NEOPL BREAST NOS 01/31/2015 JORDON SORIA, ROLANDO Sexton Ot V58.69 01/31/2015 JORDON SORIA, ROLANDO Sexton Ot V58.83 01/31/2015 LASHAWN SORIA, SONIDO A Ot 401.9 01/31/2015 LASHAWN SORIA, SONIDO A Ot V58.69 02/03/2015 JORDON SORIA, ROLANDO Sexton Ot 174.9 02/03/2015 JORDON SORIA, ROLANDO Sexton Ot 174.9 02/14/2015 JORDON SORIA, ROLANDO Sexton Ot 174.9 02/14/2015 TOMMYCARRIE PENAL OFFICER Ot 174.9 02/14/2015 TOMMYCARRIE PENAL OFFICER Ot V16.0 02/14/2015 TOMMYCARRIE PENAL OFFICER Ot V16.3 02/14/2015 TOMMYCARRIE PENAL OFFICER Ot V58.69 02/14/2015 TOMMYCARRIE PENAL OFFICER Ot V86.0 03/07/2015 JORDON SORIA, ROLANDO Sexton Ot 174.9 03/27/2015 JORDON SORIA, ROLANDO Sexton Ot 174.9 MALIGN NEOPL BREAST NOS 03/27/2015 JORDON SORIA, ROLANDO Sexton Ot 278.00 OBESITY, NOS 03/27/2015 JORDON SORIA, ROLANDO Sexton Ot 478.19 OTHER DISEASE OF NASAL CAVITY AND SINUSE 03/27/2015 JORDON SORIA, ROLANDO Sexton Ot 785.0 TACHYCARDIA NOS 03/27/2015 JORDON SORIA, ROLANDO Sexton Ot 790.6 ABN BLOOD CHEMISTRY NEC 03/27/2015 ROLANDO RUVALCABA MD Ot V15.3 HX OF IRRADIATION 03/27/2015 JORDON SORIA, ROLANDO Sexton Ot V16.0 FAMILY HX-GI MALIGNANCY 03/27/2015 ROLANDO RUVALCABA MD Ot V16.3 FAMILY HX-BREAST MALIG 03/27/2015 JORDON SORIA, ROLANDO Sexton Ot V58.69 OTH MED,LT,CURRENT USE 03/27/2015 JORDON SORIA, ROLANDO Sexton Ot V85.31 BODY MASS INDEX 31.0-31.9, ADULT 03/27/2015 JORDON SORIA, ROLADNO Sexton Ot V86.0 ESTROGEN RECEPTOR POSITIVE STATUS [ER+] 03/29/2015 JORDON SORIA, ROLANDO Sexton Ot 174.9 04/04/2015 JORDON SORIA, ROLANDO Sexton Ot 174.9 04/04/2015 JORDON SORIA, ROLANDO Sexton Ot V58.11 04/04/2015 JORDON SORIA, ROLANDO Sexton Ot V58.69 04/04/2015 JORDON SORIA, ROLANDO Sexton Ot V86.0 04/13/2015 JORDON SORIA, ROLANDO Sexton Ot 174.9 04/13/2015 JORDON SORIA, ROLANDO Sexton Ot V58.69 04/13/2015 JORDON SORIA, ROLANDO Sexton Ot V58.83 04/27/2015 JORDON SORIA, ROLANDO Sexton Ot V58.69 04/27/2015 JORDON SORIA, ROLANDO Sexton Ot V58.83 04/27/2015 JORDON SORIA, ROLANDO Sexton Ot 174.9 04/27/2015 JORDON SORIA ROLANDO Sexton Ot V58.11 04/27/2015 JORDON SORIA ROLANDO Carlie Ot V58.69 04/27/2015 JORDON SORIA ROLANDO Carlie Ot V86.0 05/10/2015 ROLANDO RUVALCABA MD Ot 174.9 MALIGN NEOPL BREAST NOS 05/10/2015 JORDON SORIA ROLANDO Carlie Ot V58.11 ENCOUNTER FOR ANTINEOPLASTIC CHEMOTHERAP 05/10/2015 JORDON SORIA ROLANDO Carlie Ot V58.69 OT MED,LT,CURRENT USE 05/10/2015 JORDON SORIA ROLANDO Carlie Ot V86.0 ESTROGEN RECEPTOR POSITIVE STATUS [ER+] 05/10/2015 CARRIE SANDERS PENAL OFFICER Ot 174.9 05/10/2015 CARRIE SANDERS PENAL OFFICER Ot V15.3 05/10/2015 CARRIE SANDERS PENAL OFFICER Ot V16.0 05/10/2015 CARRIE SANDERS PENAL OFFICER Ot V16.3 05/10/2015 CARRIE SANDERS PENAL OFFICER Ot V58.69 05/10/2015 CARRIE SANDERS PENAL OFFICER Ot V86.0 06/06/2015 JORDON SORIA ROLANDO Carlie Ot 174.9 06/06/2015 JORDON SORIA ROLANDO Carlie Ot V58.11 06/06/2015 JORDON SORIA ROLANDO Carlie Ot V58.69 06/06/2015 JORDON SORIA ROLANDO Sexton Ot V86.0 06/08/2015 Ot 721.0 06/08/2015 Ot 782.0 06/08/2015 Ot 784.42 06/08/2015 Ot 784.99 06/08/2015 Ot 786.2 06/08/2015 Ot V72.84 06/08/2015 Ot 478.70 06/08/2015 Ot V72.63 06/08/2015 Ot V72.81 06/08/2015 Ot V72.83 06/08/2015 Ot V74.8 06/08/2015 SONIDO HARDIN MD Ot 793.89 06/08/2015 SONIDO HARDIN MD Ot V76.12 06/08/2015 MUKESH PRITCHARD PENAL OFFICER Ot 793.89 06/08/2015 MUKESH PRITCHARD PENAL OFFICER Ot 786.6 06/08/2015 MUKESH PRITCHARD PENAL OFFICER Ot 793.89 06/08/2015 SONIDO HARDIN MD Ot 793.80 06/08/2015 LASHAWN SORIA, SONIDO A Ot 611.72 06/08/2015 MUKESH PRITCHARD PENAL OFFICER Ot 611.79 06/08/2015 Ot 174.9 06/08/2015 Ot 174.9 06/08/2015 Ot V72.84 06/08/2015 JORDON SORIA, ROLANDO Sexton Ot V58.69 06/08/2015 JORDON SORIA, ROLANDO Sexton Ot V58.83 06/08/2015 DELORIS SORIA, MICHELEKI Ot 174.9 06/08/2015 DELORIS SORIA, TAKAAKI Ot V72.84 06/08/2015 LASHAWN SORIA, SONIDO A Ot 401.9 06/08/2015 LASHAWN SORIA, SONIDO Cho Ot V58.69 06/08/2015 JORDON SORIA, ROLANDO Sexton Ot 174.9 06/08/2015 CARRIE SANDERS PENAL OFFICER Ot 174.9 06/08/2015 CARRIE SANDERS PENAL OFFICER Ot V16.0 06/08/2015 CARRIE SANDERS PENAL OFFICER Ot V16.3 06/08/2015 CARRIE SANDERS PENAL OFFICER Ot V58.69 06/08/2015 CARRIE SANDERS PENAL OFFICER Ot V86.0 06/08/2015 JORDON SORIA, ROLANDO Sexton Ot V58.69 06/08/2015 JORDON SORIA, ROLANDO Sexton Ot V58.83 06/08/2015 JORDON SORIA, ROLANDO Sexton Ot 174.9 06/08/2015 JORDON SORIA, ROLANDO Sexton Ot V58.69 06/08/2015 JORDON SORIA, ROLANDO Sexton Ot V58.83 06/08/2015 CARRIE SANDERS PENAL OFFICER Ot 174.9 06/08/2015 CARRIE SANDERS PENAL OFFICER Ot V15.3 06/08/2015 CARRIE SANDERS PENAL OFFICER Ot V16.0 06/08/2015 CARRIE SANDERS PENAL OFFICER Ot V16.3 06/08/2015 CARRIE SANDERS PENAL OFFICER Ot V58.69 06/08/2015 CARRIE SANDERS PENAL OFFICER Ot V86.0 06/08/2015 JORDON SORIA, ROLANDO Sexton Ot 174.9 06/08/2015 JORDON SORIA, ROLANDO Sexton Ot V58.11 06/08/2015 JORDON SORIA, ROLANDO Sexton Ot V58.69 06/08/2015 JORDON SORIA, ROLANDO Sexton Ot V86.0 06/13/2015 Ot 721.0 06/13/2015 Ot 782.0 06/13/2015 Ot 784.42 06/13/2015 Ot 784.99 06/13/2015 Ot 786.2 06/13/2015 Ot V72.84 06/13/2015 Ot 478.70 06/13/2015 Ot V72.63 06/13/2015 Ot V72.81 06/13/2015 Ot V72.83 06/13/2015 Ot V74.8 06/13/2015 LASHAWN SORIA, SONIDO A Ot 793.89 06/13/2015 LASHAWN SORIA, SONIDO Cho Ot V76.12 06/13/2015 MUKESH PRITCHARD PENAL OFFICER Ot 793.89 06/13/2015 MUKESH PRITCHARD PENAL OFFICER Ot 786.6 06/13/2015 MUKESH PRITCHARD PENAL OFFICER Ot 793.89 06/13/2015 LASHAWN SORIA, SONIDO Cho Ot 793.80 06/13/2015 LASHAWN SORIA, SONIDO A Ot 611.72 06/13/2015 MUKESH PRITCHARD PENAL OFFICER Ot 611.79 06/13/2015 Ot 174.9 06/13/2015 Ot 174.9 06/13/2015 Ot V72.84 06/13/2015 JORDON SORIA, ROLANDO Sexton Ot V58.69 06/13/2015 ROLANDO RUVALCABA MD Ot V58.83 06/13/2015 DELORIS SORIA, MEENA Ot 174.9 06/13/2015 DELORIS SORIA, MEENA Ot V72.84 06/13/2015 LASHAWN SORIA, SONIDO Cho Ot 401.9 06/13/2015 SONIDO HARDIN MD Ot V58.69 06/13/2015 JORDON SORIA, ROLANDO Sexton Ot 174.9 06/13/2015 CARRIE SANDERS PENAL OFFICER Ot 174.9 06/13/2015 CARRIE SANDERS PENAL OFFICER Ot V16.0 06/13/2015 CARRIE SANDERS PENAL OFFICER Ot V16.3 06/13/2015 CARRIE SANDERS PENAL OFFICER Ot V58.69 06/13/2015 CARRIE SANDERS PENAL OFFICER Ot V86.0 06/13/2015 ROLANDO RUVALCABA MD Ot V58.69 06/13/2015 ROLANDO RUVALCABA MD K Ot V58.83 06/13/2015 JORDON SORIA, ROLANDO Sexton Ot 174.9 06/13/2015 JORDON SORIA, ROLANDO Sexton Ot V58.69 06/13/2015 JORDON SORIA, ROLANDO Sexton Ot V58.83 06/13/2015 TOMMYCARRIE PENAL OFFICER Ot 174.9 06/13/2015 TOMMY CARRIE S PENAL OFFICER Ot V15.3 06/13/2015 TOMMY CARRIE S PENAL OFFICER Ot V16.0 06/13/2015 SANDERS HILAH S PENAL OFFICER Ot V16.3 06/13/2015 TOMMY CARRIE S PENAL OFFICER Ot V58.69 06/13/2015 TOMMY CARRIE S PENAL OFFICER Ot V86.0 06/13/2015 JORDON SORIA, ROLANDO Sexton Ot 174.9 06/13/2015 JORDON SORIA, ROLANDO Sexton Ot V58.11 06/13/2015 JORDON SORIA, ROLANDO Sexton Ot V58.69 06/13/2015 JORDON SORIA, ROLANDO Sexton Ot V86.0 06/13/2015 JORDON SORIA, ROLANDO Sexton Ot Z51.81 06/13/2015 JORDON SORIA, ROLANDO Carlie Ot Z79.899 06/13/2015 JORDON SORIA, ROLANDO Sexton Ot Z51.81 06/13/2015 JORDON SORIA, ROLANDO Sexton Ot Z79.899 06/14/2015 JORDON SORIA, ROLANDO Sexton Ot Z51.81 06/14/2015 JORDON SORIA, ROLANDO Sexton Ot Z79.899 06/19/2015 JORDON SORIA, ROLANDO Sexton Ot 174.9 06/19/2015 JORDON SORIA, ROLANDO Sexton Ot V58.11 06/19/2015 JORDON SORIA, ROLANDO Sexton Ot V58.69 06/19/2015 JORDON SORIA, ROLANDO Sexton Ot V86.0 06/28/2015 JORDON SORIA, ROLANDO Sexton Ot Z51.81 06/28/2015 JORDON SORIA, ROLANDO Carlie Ot Z79.899 06/28/2015 JORDON SORAI, ROLANDO Sexton Ot C50.919 06/28/2015 JORDON SORIA, ROLANDO Sexton Ot Z17.0 06/28/2015 JORDON SORIA, ROLANDO Sexton Ot Z51.11 06/28/2015 JORDON SORIA, ROLANDO Sexton Ot Z92.3 08/10/2015 JORDON SORIA, ROLANDO Sexton Ot C50.919 08/10/2015 JORDON SORIA, ROLANDO Sexton Ot Z17.0 08/10/2015 JORDON SORIA, ROLANDO Sexton Ot Z51.11 08/10/2015 JORDON SORIA, ROLANDO Sexton Ot Z92.3 08/14/2015 Ot 721.0 08/14/2015 Ot 782.0 08/14/2015 Ot 784.42 08/14/2015 Ot 784.99 08/14/2015 Ot 786.2 08/14/2015 Ot V72.84 08/14/2015 Ot 478.70 08/14/2015 Ot V72.63 08/14/2015 Ot V72.81 08/14/2015 Ot V72.83 08/14/2015 Ot V74.8 08/14/2015 LASHAWN SORIA, SONIDO A Ot 793.89 08/14/2015 LASHAWN SORIA, SONIDO A Ot V76.12 08/14/2015 MUKESH PRITCHARD PENAL OFFICER Ot 793.89 08/14/2015 MUKESH PRITCHARD PENAL OFFICER Ot 786.6 08/14/2015 MUKESH PRITCHARD PENAL OFFICER Ot 793.89 08/14/2015 LASHAWN SORIA, SONIDO A Ot 793.80 08/14/2015 LASHAWN SORIA, SONIDO A Ot 611.72 08/14/2015 MUKESH PRITCHARD PENAL OFFICER Ot 611.79 08/14/2015 Ot 174.9 08/14/2015 Ot 174.9 08/14/2015 Ot V72.84 08/14/2015 JORDON SORIA, ROLANDO Sexton Ot V58.69 08/14/2015 JORDON SORIA, ROLANDO Sexton Ot V58.83 08/14/2015 DELORIS SORIA, MEENA Ot 174.9 08/14/2015 DELORIS SORIA, TAKAAKI Ot V72.84 08/14/2015 LASHAWN SORIA, SONIDO A Ot 401.9 08/14/2015 LASHAWN SORIA, SONIDO A Ot V58.69 08/14/2015 JORDON SORIA, ROLANDO Sexton Ot 174.9 08/14/2015 CARRIE SANDERS PENAL OFFICER Ot 174.9 08/14/2015 CARRIE SANDERS PENAL OFFICER Ot V16.0 08/14/2015 CARRIE SANDERS PENAL OFFICER Ot V16.3 08/14/2015 CARRIE SANDERS PENAL OFFICER Ot V58.69 08/14/2015 CARRIE SANDERS PENAL OFFICER Ot V86.0 08/14/2015 JORDON SORIA, ROLANDO Sexton Ot V58.69 08/14/2015 JORDON SORIA, ROLANDO Sexton Ot V58.83 08/14/2015 JORDON SORIA, ROLANDO Sexton Ot 174.9 08/14/2015 JORDON SORIA, ROLANDO Sexton Ot V58.69 08/14/2015 JORDON SORIA, ROLANDO Sexton Ot V58.83 08/14/2015 TOMMYCARRIE PENAL OFFICER Ot 174.9 08/14/2015 TOMMYCARRIE S PENAL OFFICER Ot V15.3 08/14/2015 TOMMY CARRIE S PENAL OFFICER Ot V16.0 08/14/2015 TOMMY CARRIE S PENAL OFFICER Ot V16.3 08/14/2015 TOMMY CARRIE S PENAL OFFICER Ot V58.69 08/14/2015 TOMMYCARRIE S PENAL OFFICER Ot V86.0 08/14/2015 JORDON SORIA, ROLANDO Sexton Ot C50.919 08/14/2015 JORDON SORIA, ROLANDO Sexton Ot Z17.0 08/14/2015 JORDON SORIA, ROLANDO Sexton Ot Z51.11 08/14/2015 JORDON SORIA, ROLANDO Sexton Ot Z92.3 08/14/2015 JORDON SORIA, ROLANDO Sexton Ot Z51.81 08/14/2015 JORDON SORIA, ROLANDO Sexton Ot Z79.899 08/14/2015 JORDON SORIA, ROLANDO Sexton Ot C50.312 08/14/2015 JORDON SORIA, ROLANDO Sexton Ot M81.0 08/15/2015 JORDON SORIA, ROLANDO Sexton Ot C50.919 MALIGNANT NEOPLASM OF [facility] OF [place] 08/15/2015 JORDON SORIA, ROLANDO Sexton Ot Z17.0 ESTROGEN RECEPTOR POSITIVE STATUS [ER+] 08/15/2015 JORDON SORIA, ROLANDO Sexton Ot Z51.11 ENCOUNTER FOR ANTINEOPLASTIC CHEMOTHERAP 08/15/2015 JORDON SORIA, ROLANDO Sexton Ot Z92.3 PERSONAL HISTORY OF IRRADIATION 08/15/2015 JORDON SORIA, ROLANDO Sexton Ot C50.312 08/15/2015 JORDON SORIA, ROLANDO Sexton Ot M81.0 08/16/2015 JORDON SORIA, ROLANDO Sexton Ot C50.919 08/16/2015 JORDON SORIA, ROLANDO Sexton Ot Z17.0 08/16/2015 JORDON SORIA, ROLANDO Sexton Ot Z51.11 08/16/2015 JORDON SORIA, ROLANDO Sexton Ot Z92.3 10/05/2015 JORDON SORIA, ROLANDO Sexton Ot C50.919 10/05/2015 JORDON SORIA, ROLANDO Sexton Ot Z17.0 10/05/2015 JORDON SORIA, ROLANDO Sexton Ot Z51.11 10/05/2015 OJRDON SORIA, ROLANDO Sexton Ot Z92.3 10/12/2015 JORDON SORIA, ROLANDO Sexton Ot C50.312 10/12/2015 JORDON SORIA, ROLANDO Sexton Ot Z17.0 10/12/2015 JORDON SORIA, ROLANDO Sexton Ot Z51.11 10/12/2015 JORDON SORIA, ROLANDO Sexton Ot Z92.3 10/18/2015 JORDON SORIA, ROLANDO Sexton Ot C50.312 10/18/2015 JORDON SORIA, ROLANDO Sexton Ot Z17.0 10/18/2015 JORDON SORIA, ROLANDO Sexton Ot Z51.11 10/18/2015 JORDON SORIA, ROLANDO Sexton Ot Z92.3 11/02/2015 JORDON SORIA, ROLANDO Sexton Ot C50.312 11/02/2015 JORDON SORIA, ROLANDO Sexton Ot Z17.0 11/02/2015 JORDON SORIA, ROLANDO Sexton Ot Z51.11 11/02/2015 JORDON SORIA, ROLANDO Sexton Ot Z92.3 11/14/2015 JORDON SORIA, ROLANDO Sexton Ot C50.312 MALIG NEOPLASM OF LOWER-INNER QUADRANT O 11/14/2015 JORDON SORIA, ROLANDO Sexton Ot Z17.0 ESTROGEN RECEPTOR POSITIVE STATUS [ER+] 11/14/2015 JORDON SORIA, ROLANDO Sexton Ot Z51.11 ENCOUNTER FOR ANTINEOPLASTIC CHEMOTHERAP 11/14/2015 JORDON SORIA, ROLANDO Sexton Ot Z92.3 PERSONAL HISTORY OF IRRADIATION 11/15/2015 Ot 721.0 11/15/2015 Ot 782.0 11/15/2015 Ot 784.42 11/15/2015 Ot 784.99 11/15/2015 Ot 786.2 11/15/2015 Ot V72.84 11/15/2015 Ot 478.70 11/15/2015 Ot V72.63 11/15/2015 Ot V72.81 11/15/2015 Ot V72.83 11/15/2015 Ot V74.8 11/15/2015 LASHAWN SORIA, SONIDO Cho Ot 793.89 11/15/2015 SONIDO HARDIN MD Ot V76.12 11/15/2015 MUKESH PRITCHARD Ot 793.89 11/15/2015 MUKESH PRITCHARD PENAL OFFICER Ot 786.6 11/15/2015 MUKESH PRITCHARD PENAL OFFICER Ot 793.89 11/15/2015 LASHAWN SORIA, SONIDO A Ot 793.80 11/15/2015 LASHAWN SORIA, SONIDO A Ot 611.72 11/15/2015 MUKESH PRITCHARD PENAL OFFICER Ot 611.79 11/15/2015 Ot 174.9 11/15/2015 Ot 174.9 11/15/2015 Ot V72.84 11/15/2015 JORDON SORIA, ROLANDO Sexton Ot V58.69 11/15/2015 JORDON SORIA, ROLANDO Sexton Ot V58.83 11/15/2015 DELORIS SORIA, CRYSTALAAKI Ot 174.9 11/15/2015 DELORIS SORIA, TAKAAKI Ot V72.84 11/15/2015 LASHAWN SORIA, SONIDO A Ot 401.9 11/15/2015 LASHAWN SORIA, SONIDO A Ot V58.69 11/15/2015 JORDON SORIA, ROLANDO Sexton Ot 174.9 11/15/2015 CARRIE SANDERS S PENAL OFFICER Ot 174.9 11/15/2015 CARRIE SANDERS S PENAL OFFICER Ot V16.0 11/15/2015 SHALINI SANDERSAH S PENAL OFFICER Ot V16.3 11/15/2015 SANDERS, HILAH S PENAL OFFICER Ot V58.69 11/15/2015 CARRIE SANDERS S PENAL OFFICER Ot V86.0 11/15/2015 JORDON SORIA, ROLANDO Sexton Ot V58.69 11/15/2015 JORDON SORIA, ROLANDO Sexton Ot V58.83 11/15/2015 JORDON SORIA, ROLANDO Sexton Ot 174.9 11/15/2015 JORDON SORIA, ROLANDO Sexton Ot V58.69 11/15/2015 JORDON SORIA, ROLANDO Sexton Ot V58.83 11/15/2015 SANDERS, HILAH S PENAL OFFICER Ot 174.9 11/15/2015 SANDERS, HILAH S PENAL OFFICER Ot V15.3 11/15/2015 TOMMY HILAH S PENAL OFFICER Ot V16.0 11/15/2015 TOMMY HILAH S PENAL OFFICER Ot V16.3 11/15/2015 TOMMY HILAH S PENAL OFFICER Ot V58.69 11/15/2015 CARRIE SANDERS S PENAL OFFICER Ot V86.0 11/15/2015 JORDON SORIA, ROLANDO Sexton Ot Z51.81 11/15/2015 JORDON SORIA, ROLANDO eSxton Ot Z79.899 11/15/2015 JORDON SORIA, ROLANDO Sexton Ot C50.312 11/15/2015 JORDON SORIA, ROLANDO Sexton Ot M81.0 11/15/2015 JORDON SORIA, ROLANDO Sexton Ot I10 11/15/2015 JORDON SORIA, ROLANDO Sexton Ot R06.09 11/15/2015 JORDON SORIA, ROLANDO Sexton Ot Z51.81 11/15/2015 JORDON SORIA, RLOANDO Sexton Ot C50.312 11/15/2015 JORDON SORIA, ROLANDO Sexton Ot Z17.0 11/15/2015 JORDON SORIA, ROLANDO Sexton Ot Z51.11 11/15/2015 JORDON SORIA, ROLANDO Sexton Ot Z92.3 11/16/2015 JORDON SORIA, ROLANDO Sexton Ot C50.312 11/17/2015 JORDON OSRIA, ROLANDO Sexton Ot C50.312 11/17/2015 JORDON SORIA, ROLANDO Sexton Ot Z17.0 11/17/2015 JORDON SORIA, ROLANDO Sexton Ot Z51.11 11/17/2015 JORDON SORIA, ROLANDO Sexton Ot Z92.3 11/29/2015 JORDON SORIA, ROLANDO Sexton Ot C50.312 MALIG NEOPLASM OF LOWER-INNER QUADRANT O 12/04/2015 JORDON SORIA, ROLANDO Sexton Ot C50.312 MALIG NEOPLASM OF LOWER-INNER QUADRANT O 12/04/2015 JORDON SORIA, ROLANDO Sexton Ot Z51.81 ENCOUNTER FOR THERAPEUTIC DRUG LEVEL MON 12/04/2015 ROLANDO RUVALCABA MD Ot Z79.899 OTHER SKILLED NURSING (CURRENT) DRUG THERAPY 12/13/2015 ROLANDO RUVALCABA MD Ot C50.312 MALIG NEOPLASM OF LOWER-INNER QUADRANT O 12/13/2015 ROLANDO RUVALCABA MD Ot Z51.81 ENCOUNTER FOR THERAPEUTIC DRUG LEVEL MON 12/13/2015 ROLANDO RUVALCABA MD Ot Z79.899 OTHER VASCULAR NURSE (CURRENT) DRUG THERAPY 01/03/2016 ROLANDO RUVALCABA MD Ot C50.312 MALIG NEOPLASM OF LOWER-INNER QUADRANT O 01/03/2016 JORDON SORIA, ROLANDO Sexton Ot Z17.0 ESTROGEN RECEPTOR POSITIVE STATUS [ER+] 01/03/2016 JORDON SORIA, ROLANDO Sexton Ot Z51.11 ENCOUNTER FOR ANTINEOPLASTIC CHEMOTHERAP 01/03/2016 ROLANDO RUVALCABA MD Ot Z92.3 PERSONAL HISTORY OF IRRADIATION 01/24/2016 JORDON SORIA, ROLANDO Sexton Ot C50.312 MALIG NEOPLASM OF LOWER-INNER QUADRANT O 01/24/2016 ROLANDO RUVALCABA MD Ot Z17.0 ESTROGEN RECEPTOR POSITIVE STATUS [ER+] 01/24/2016 ROLANDO RUVALCABA MD, Ot Z51.11 ENCOUNTER FOR ANTINEOPLASTIC CHEMOTHERAP 01/24/2016 ROLANDO RUVALCABA MD, Ot Z92.3 PERSONAL HISTORY OF IRRADIATION 02/02/2016 ROLANDO RUVALCABA MD, Ot M81.0 AGE-RELATED OSTEOPOROSIS W/O CURRENT PAT 02/02/2016 ROLANDO RUVALCABA MD, Ot Z79.811 SKILLED NURSING (CURRENT) USE OF AROMATASE INH 02/15/2016 ROALNDO RUVALCABA MD, Ot M81.0 AGE-RELATED OSTEOPOROSIS W/O CURRENT PAT 02/15/2016 ROLANDO RUVALCABA MD, Ot Z79.811 VASCULAR NURSE (CURRENT) USE OF AROMATASE INH 02/22/2016 ROLANDO RUVALCABA MD, Ot C50.312 MALIG NEOPLASM OF LOWER-INNER QUADRANT O 02/22/2016 ROLANDO RUVALCABA MD, Ot E66.9 OBESITY, UNSPECIFIED 02/22/2016 ROLANDO RUVALCABA MD, Ot I10 ESSENTIAL (PRIMARY) HYPERTENSION 02/22/2016 ROLANDO RUVALCABA MD, Ot M81.0 AGE-RELATED OSTEOPOROSIS W/O CURRENT PAT 02/22/2016 ROLANDO RUVALCABA MD, Ot R00.0 TACHYCARDIA, UNSPECIFIED 02/22/2016 ROLANDO RUVALCABA MD, Ot Z17.0 ESTROGEN RECEPTOR POSITIVE STATUS [ER+] 02/22/2016 ROLANDO RUVALCABA MD, Ot Z51.11 ENCOUNTER FOR ANTINEOPLASTIC CHEMOTHERAP 02/22/2016 ROLANDO RUVALCABA MD, Ot Z68.32 BODY MASS INDEX (BMI) 32.0-32.9, ADULT 02/22/2016 ROLANDO RUVALCABA MD, Ot Z79.811 SKILLED NURSING (CURRENT) USE OF AROMATASE INH 02/22/2016 ROLANDO RUVALCABA MD, Ot Z79.899 OTHER VASCULAR NURSE (CURRENT) DRUG THERAPY 02/22/2016 ROLANDO RUVALCABA MD, Ot Z92.3 PERSONAL HISTORY OF IRRADIATION 02/23/2016 ROLANDO RUVALCABA MD, Ot C50.312 MALIG NEOPLASM OF LOWER-INNER QUADRANT O 02/23/2016 ROLANDO RUVALCABA MD, Ot E66.9 OBESITY, UNSPECIFIED 02/23/2016 ROLANDO RUVALCABA MD, Ot I10 ESSENTIAL (PRIMARY) HYPERTENSION 02/23/2016 ROLANDO RUVALCABA MD, Ot M81.0 AGE-RELATED OSTEOPOROSIS W/O CURRENT PAT 02/23/2016 ROLANDO RUVALCABA MD, Ot R00.0 TACHYCARDIA, UNSPECIFIED 02/23/2016 ROLANDO RUVALCABA MD, Ot Z17.0 ESTROGEN RECEPTOR POSITIVE STATUS [ER+] 02/23/2016 ROLANDO RUVALCABA MD, Ot Z51.11 ENCOUNTER FOR ANTINEOPLASTIC CHEMOTHERAP 02/23/2016 ROLANDO RUVALCABA MD, Ot Z68.32 BODY MASS INDEX (BMI) 32.0-32.9, ADULT 02/23/2016 ROLANDO RUVALCABA MD, Ot Z79.811 SKILLED NURSING (CURRENT) USE OF AROMATASE INH 02/23/2016 ROLANDO RUVALCABA MD, Ot Z79.899 OTHER VASCULAR NURSE (CURRENT) DRUG THERAPY 02/23/2016 ROLANDO RUVALCABA MD, Ot Z92.3 PERSONAL HISTORY OF IRRADIATION 03/22/2016 ROLANDO RUVALCABA MD, Ot C50.312 MALIG NEOPLASM OF LOWER-INNER QUADRANT O 03/22/2016 ROLANDO RUVALCABA MD, Ot Z17.0 ESTROGEN RECEPTOR POSITIVE STATUS [ER+] 03/22/2016 ROLANDO RUVALCABA MD, Ot Z51.11 ENCOUNTER FOR ANTINEOPLASTIC CHEMOTHERAP 03/22/2016 ROLANDO RUVALCABA MD, Ot Z92.3 PERSONAL HISTORY OF IRRADIATION 04/05/2016 ROLANDO RUVALCABA MD, Ot C50.312 MALIG NEOPLASM OF LOWER-INNER QUADRANT O 04/05/2016 ROLANDO RUVALCABA MD, Ot E66.9 OBESITY, UNSPECIFIED 04/05/2016 ROLANDO RUVALCABA MD, Ot I10 ESSENTIAL (PRIMARY) HYPERTENSION 04/05/2016 ROLANDO RUVALCABA MD, Ot M81.0 AGE-RELATED OSTEOPOROSIS W/O CURRENT PAT 04/05/2016 ROLANDO RUVALCABA MD, Ot R00.0 TACHYCARDIA, UNSPECIFIED 04/05/2016 ROALNDO RUVALCABA MD, Ot Z17.0 ESTROGEN RECEPTOR POSITIVE STATUS [ER+] 04/05/2016 ROLANDO RUVALCABA MD, Ot Z68.32 BODY MASS INDEX (BMI) 32.0-32.9, ADULT 04/05/2016 ROLANDO RUVALCABA MD, Ot Z79.811 SKILLED NURSING (CURRENT) USE OF AROMATASE INH 04/05/2016 ROLANDO RUVALCABA MD, Ot Z79.899 OTHER SKILLED NURSING (CURRENT) DRUG THERAPY 04/05/2016 ROLANDO RUVALCABA MD, Ot Z92.3 PERSONAL HISTORY OF IRRADIATION 05/20/2016 Ot 721.0 CERVICAL SPONDYLOSIS 05/20/2016 Ot 782.0 SKIN SENSATION DISTURB 05/20/2016 Ot 784.42 DYSPHONIA 05/20/2016 Ot 784.99 OTHER SYMPTOMS INVOLVING HEAD AND NECK 05/20/2016 Ot 786.2 COUGH 05/20/2016 Ot V72.84 EXAM PRE- OPERATIVE NOS 05/20/2016 Ot 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 05/20/2016 Ot V72.63 PRE- PROCEDURAL LABORATORY EXAMINATION 05/20/2016 Ot V72.81 EXAM-PRE- OPERATIVE CARDIOVASCULAR 05/20/2016 Ot V72.83 EXAM PRE- OPERATIVE NEC 05/20/2016 Ot V74.8 SCREEN- BACTERIAL DIS NEC 05/20/2016 SONIDO HARDIN MD Ot 793.89 OTH (ABN) FINDINGS ON RADIOLOGICAL EXAMI 05/20/2016 SONIDO HARDIN MD Ot V76.12 OTH SCREEN MAMMO-MALIGN NEOPLASM OF BRIANNA 05/20/2016 MUKESH PRITCHARD PENAL OFFICER Ot 793.89 OTH (ABN) FINDINGS ON RADIOLOGICAL EXAMI 05/20/2016 MUKESH PRITCHARD PENAL OFFICER Ot 786.6 CHEST SWELLING/MASS/LUMP 05/20/2016 MUKESH PRITCHARD PENAL OFFICER Ot 793.89 OTH (ABN) FINDINGS ON RADIOLOGICAL EXAMI 05/20/2016 SONIDO HARDIN MD Ot 793.80 UNSPEC ABNORMAL MAMMOGRAM 05/20/2016 SONIDO HARDIN MD Ot 611.72 LUMP OR MASS IN BREAST 05/20/2016 MUKESH PRITCHARDP Ot 611.79 SYMPTOMS IN BREAST NEC 05/20/2016 Ot 174.9 MALIGN NEOPL BREAST NOS 05/20/2016 Ot 174.9 MALIGN NEOPL BREAST NOS 05/20/2016 Ot V72.84 EXAM PRE- OPERATIVE NOS 05/20/2016 ROLANDO RUVALCABA MD Ot V58.69 OTH MED,LT,CURRENT USE 05/20/2016 ROLANDO RUVALCABA MD Ot V58.83 ENCOUNTER FOR THERAPEUTIC DRUG MONITORIN 05/20/2016 MEENA PUENTES MD Ot 174.9 MALIGN NEOPL BREAST NOS 05/20/2016 MEENA PUENTES MD Ot V72.84 EXAM PRE-OPERATIVE NOS 05/20/2016 SONIDO HARDIN MD Ot 401.9 HYPERTENSION NOS 05/20/2016 SONIDO HARDIN MD Ot V58.69 OTH MED,LT,CURRENT USE 05/20/2016 ROLANDO RUVALCABA MD Ot 174.9 MALIGN NEOPL BREAST NOS 05/20/2016 SANDERSCARRIE Cifuentes Esau PENAL OFFICER Ot 174.9 MALIGN NEOPL BREAST NOS 05/20/2016 SANDERS, SHALINIMALU Cifuentes PENAL OFFICER Ot V16.0 FAMILY HX-GI MALIGNANCY 05/20/2016 SANDERS, SHALINIMALU Esau PENAL OFFICER Ot V16.3 FAMILY HX-BREAST MALIG 05/20/2016 CARRIE SANDERSP Ot V58.69 OTH MED,LT,CURRENT USE 05/20/2016 CARRIE SANDERS PENAL OFFICER Ot V86.0 ESTROGEN RECEPTOR POSITIVE STATUS [ER+] 05/20/2016 ROLANDO RUVALCABA MD Ot V58.69 OTH MED,LT,CURRENT USE 05/20/2016 ROLANDO RUVALCABA MD Ot V58.83 ENCOUNTER FOR THERAPEUTIC DRUG MONITORIN 05/20/2016 ROLANDO RUVALCABA MD Ot 174.9 MALIGN NEOPL BREAST NOS 05/20/2016 ROLANDO RUVALCABA MD Ot V58.69 OTH MED,LT,CURRENT USE 05/20/2016 ROLANDO RUVALCABA MD Ot V58.83 ENCOUNTER FOR THERAPEUTIC DRUG MONITORIN 05/20/2016 CARRIE SANDERS [employer] OFFICER Ot 174.9 MALIGN NEOPL BREAST NOS 05/20/2016 CARRIE SANDERS [employer] OFFICER Ot V15.3 HX OF IRRADIATION 05/20/2016 CARRIE SANDERS PENAL OFFICER Ot V16.0 FAMILY HX-GI MALIGNANCY 05/20/2016 CARRIE SANDERS PENAL OFFICER Ot V16.3 FAMILY HX-BREAST MALIG 05/20/2016 CARRIE SANDERS [employer]NAL OFFICER Ot V58.69 OTH MED,LT,CURRENT USE 05/20/2016 CARRIE SANDERS [employer] OFFICER Ot V86.0 ESTROGEN RECEPTOR POSITIVE STATUS [ER+] 05/20/2016 ROLANDO RUVALCABA MD Ot Z51.81 ENCOUNTER FOR THERAPEUTIC DRUG LEVEL MON 05/20/2016 ROLANDO RUVALCABA MD Ot Z79.899 OTHER SKILLED NURSING (CURRENT) DRUG THERAPY 05/20/2016 ROLANDO RUVALCABA MD Ot C50.312 MALIG NEOPLASM OF LOWER-INNER QUADRANT O 05/20/2016 ROLANDO RUVALCABA MD Ot M81.0 AGE-RELATED OSTEOPOROSIS W/O CURRENT PAT 05/20/2016 ROLANDO RUVALCABA MD Ot I10 ESSENTIAL (PRIMARY) HYPERTENSION 05/20/2016 ROLANDO RUVALCABA MD Ot R06.09 OTHER FORMS OF DYSPNEA 05/20/2016 ROLANDO RUVALCABA MD, Ot Z51.81 ENCOUNTER FOR THERAPEUTIC DRUG LEVEL MON 05/20/2016 ROLANDO RUVALCABA MD, Ot C50.312 MALIG NEOPLASM OF LOWER-INNER QUADRANT O 05/20/2016 ROLANDO RUVALCABA MD, Ot C50.312 MALIG NEOPLASM OF LOWER-INNER QUADRANT O 05/20/2016 ROLANDO RUVALCABA MD, Ot Z51.81 ENCOUNTER FOR THERAPEUTIC DRUG LEVEL MON 05/20/2016 ROLANDO RUVALCABA MD, Ot Z79.899 OTHER VASCULAR NURSE (CURRENT) DRUG THERAPY 05/20/2016 ROLANDO RUVALCABA MD, Ot M81.0 AGE-RELATED OSTEOPOROSIS W/O CURRENT PAT 05/20/2016 ROLANDO RUVALCABA MD, Ot Z79.811 SKILLED NURSING (CURRENT) USE OF AROMATASE INH 05/20/2016 ROLANDO RUVALCABA MD, Ot C50.312 MALIG NEOPLASM OF LOWER-INNER QUADRANT O 05/20/2016 ROLANDO RUVALCABA MD, Ot E66.9 OBESITY, UNSPECIFIED 05/20/2016 ROLANDO RUVALCABA MD, Ot I10 ESSENTIAL (PRIMARY) HYPERTENSION 05/20/2016 ROLANDO RUVALCABA MD, Ot M81.0 AGE-RELATED OSTEOPOROSIS W/O CURRENT PAT 05/20/2016 ROLANDO RUVALCABA MD, Ot R00.0 TACHYCARDIA, UNSPECIFIED 05/20/2016 ROLANDO RUVALCABA MD, Ot Z17.0 ESTROGEN RECEPTOR POSITIVE STATUS [ER+] 05/20/2016 ROLANDO RUVALCABA MD, Ot Z68.32 BODY MASS INDEX (BMI) 32.0-32.9, ADULT 05/20/2016 ROLANDO RUVALCABA MD, Ot Z79.811 VASCULAR NURSE (CURRENT) USE OF AROMATASE INH 05/20/2016 ROLANDO RUVALCABA MD, Ot Z79.899 OTHER SKILLED NURSING (CURRENT) DRUG THERAPY 05/20/2016 ROLANDO RUVALCABA MD, Ot Z92.3 PERSONAL HISTORY OF IRRADIATION 05/20/2016 ROLANDO RUVALCABA MD, Ot C50.312 MALIG NEOPLASM OF LOWER-INNER QUADRANT O 05/20/2016 ROLANDO RUVALCABA MD, Ot E66.9 OBESITY, UNSPECIFIED 05/20/2016 ROLANDO RUVALCABA MD, Ot I10 ESSENTIAL (PRIMARY) HYPERTENSION 05/20/2016 ROLANDO RUVALCABA MD, Ot M81.0 AGE-RELATED OSTEOPOROSIS W/O CURRENT PAT 05/20/2016 ROLANDO RUVALCABA MD, Ot R00.0 TACHYCARDIA, UNSPECIFIED 05/20/2016 ROLANDO RUVALCABA MD, Ot Z17.0 ESTROGEN RECEPTOR POSITIVE STATUS [ER+] 05/20/2016 ROLANDO RUVALCABA MD, Ot Z68.32 BODY MASS INDEX (BMI) 32.0-32.9, ADULT 05/20/2016 ROLANDO RUVALCABA MD, Ot Z79.811 SKILLED NURSING (CURRENT) USE OF AROMATASE INH 05/20/2016 ROLANDO RUVALCABA MD, Ot Z79.899 OTHER VASCULAR NURSE (CURRENT) DRUG THERAPY 05/20/2016 ROLANDO RUVALCABA MD, Ot Z92.3 PERSONAL HISTORY OF IRRADIATION 05/21/2016 ROLANDO RUVALCABA MD, Ot C50.312 MALIG NEOPLASM OF LOWER-INNER QUADRANT O 05/21/2016 ROLANDO RUVALCABA MD, Ot E66.9 OBESITY, UNSPECIFIED 05/21/2016 ROLANDO RUVALCABA MD, Ot I10 ESSENTIAL (PRIMARY) HYPERTENSION 05/21/2016 ROLANDO RUVALCABA MD, Ot M81.0 AGE-RELATED OSTEOPOROSIS W/O CURRENT PAT 05/21/2016 ROLANDO RUVALCABA MD, Ot R00.0 TACHYCARDIA, UNSPECIFIED 05/21/2016 ROLANDO RUVALCABA MD, Ot Z17.0 ESTROGEN RECEPTOR POSITIVE STATUS [ER+] 05/21/2016 ROLANDO RUVALCABA MD, Ot Z68.32 BODY MASS INDEX (BMI) 32.0-32.9, ADULT 05/21/2016 ROLANDO RUVALCABA MD, Ot Z79.811 SKILLED NURSING (CURRENT) USE OF AROMATASE INH 05/21/2016 ROLANDO RUVALCABA MD, Ot Z79.899 OTHER VASCULAR NURSE (CURRENT) DRUG THERAPY 05/21/2016 ROLANDO RUVALCABA MD, Ot Z92.3 PERSONAL HISTORY OF IRRADIATION 05/22/2016 ROLANDO RUVALCABA MD, Ot C50.312 MALIG NEOPLASM OF LOWER-INNER QUADRANT O 06/05/2016 ROLANDO RUVALCABA MD, Ot C50.312 MALIG NEOPLASM OF LOWER-INNER QUADRANT O 06/26/2016 ROLANDO RUVALCABA MD, Ot C50.312 MALIG NEOPLASM OF LOWER-INNER QUADRANT O 06/26/2016 ROLANDO RUVALCABA MD, Ot E66.9 OBESITY, UNSPECIFIED 06/26/2016 ROLANDO RUVALCABA MD Ot I10 ESSENTIAL (PRIMARY) HYPERTENSION 06/26/2016 ROLANDO RUVALCABA MD, Ot M81.0 AGE-RELATED OSTEOPOROSIS W/O CURRENT PAT 06/26/2016 ROLANDO RUVALCABA MD, Ot R00.0 TACHYCARDIA, UNSPECIFIED 06/26/2016 ROLANDO RUVALCABA MD, Ot Z17.0 ESTROGEN RECEPTOR POSITIVE STATUS [ER+] 06/26/2016 ROLANDO RUVALCABA MD, Ot Z45.2 ENCOUNTER FOR ADJUSTMENT AND MANAGEMENT 06/26/2016 ROLANDO RUVALCABA MD, Ot Z68.32 BODY MASS INDEX (BMI) 32.0-32.9, ADULT 06/26/2016 ROLANDO RUVALCABA MD, Ot Z79.811 VASCULAR NURSE (CURRENT) USE OF AROMATASE INH 06/26/2016 ROLANDO RUVALCABA MD, Ot Z79.899 OTHER VASCULAR NURSE (CURRENT) DRUG THERAPY 06/26/2016 ROLANDO RUVALCABA MD, Ot Z92.3 PERSONAL HISTORY OF IRRADIATION 08/18/2016 ROLANDO RUVALCABA MD, Ot C50.312 MALIG NEOPLASM OF LOWER-INNER QUADRANT O 08/18/2016 ROLANDO RUVALCABA MD, Ot E66.9 OBESITY, UNSPECIFIED 08/18/2016 ROLANDO RUVALCABA MD, Ot I10 ESSENTIAL (PRIMARY) HYPERTENSION 08/18/2016 ROLANDO RUVALCABA MD, Ot M81.0 AGE-RELATED OSTEOPOROSIS W/O CURRENT PAT 08/18/2016 ROLANDO RUVALCABA MD, Ot R00.0 TACHYCARDIA, UNSPECIFIED 08/18/2016 ROLANDO RUVALCABA MD, Ot Z17.0 ESTROGEN RECEPTOR POSITIVE STATUS [ER+] 08/18/2016 ROLANDO RUVALCABA MD, Ot Z45.2 ENCOUNTER FOR ADJUSTMENT AND MANAGEMENT 08/18/2016 ROLANDO RUVALCABA MD, Ot Z68.32 BODY MASS INDEX (BMI) 32.0-32.9, ADULT 08/18/2016 ROLANDO RUVALCABA MD, Ot Z79.811 SKILLED NURSING (CURRENT) USE OF AROMATASE INH 08/18/2016 ROLANDO RUVALCABA MD, Ot Z79.899 OTHER SKILLED NURSING (CURRENT) DRUG THERAPY 08/18/2016 ROLANDO RUVALCABA MD, Ot Z92.3 PERSONAL HISTORY OF IRRADIATION 09/16/2016 ROLANOD RUVALCABA MD, Ot C50.312 MALIG NEOPLASM OF LOWER-INNER QUADRANT O 09/16/2016 ROLANDO RUVALCABA MD, Ot E66.9 OBESITY, UNSPECIFIED 09/16/2016 ROLANDO RUVALCABA MD, Ot I10 ESSENTIAL (PRIMARY) HYPERTENSION 09/16/2016 ROLANDO RUVALCABA MD, Ot M81.0 AGE-RELATED OSTEOPOROSIS W/O CURRENT PAT 09/16/2016 ROLANDO RUVALCABA MD, Ot R00.0 TACHYCARDIA, UNSPECIFIED 09/16/2016 ROLANDO RUVALCABA MD, Ot Z17.0 ESTROGEN RECEPTOR POSITIVE STATUS [ER+] 09/16/2016 ROLANDO RVUALCABA MD, Ot Z45.2 ENCOUNTER FOR ADJUSTMENT AND MANAGEMENT 09/16/2016 ROLANDO RUVALCABA MD, Ot Z68.32 BODY MASS INDEX (BMI) 32.0-32.9, ADULT 09/16/2016 ROLANDO RUVALCABA MD, Ot Z79.811 VASCULAR NURSE (CURRENT) USE OF AROMATASE INH 09/16/2016 ROLANDO RUVALCABA MD, Ot Z79.899 OTHER SKILLED NURSING (CURRENT) DRUG THERAPY 09/16/2016 ROLANDO RUVALCABA MD, Ot Z92.3 PERSONAL HISTORY OF IRRADIATION 10/23/2016 ROLANDO RUVALCABA MD, Ot C50.312 MALIG NEOPLASM OF LOWER-INNER QUADRANT O 10/23/2016 ROLANDO RUVALCABA MD, Ot E66.9 OBESITY, UNSPECIFIED 10/23/2016 ROLANDO RUVALCABA MD, Ot I10 ESSENTIAL (PRIMARY) HYPERTENSION 10/23/2016 ROLANDO RUVALCABA MD, Ot M81.0 AGE-RELATED OSTEOPOROSIS W/O CURRENT PAT 10/23/2016 ROLANDO RUVALCABA MD, Ot R00.0 TACHYCARDIA, UNSPECIFIED 10/23/2016 ROLANDO RUVALCABA MD, Ot Z17.0 ESTROGEN RECEPTOR POSITIVE STATUS [ER+] 10/23/2016 ROLANDO RUVALCABA MD, Ot Z45.2 ENCOUNTER FOR ADJUSTMENT AND MANAGEMENT 10/23/2016 ROLANDO RUVALCABA MD, Ot Z68.32 BODY MASS INDEX (BMI) 32.0-32.9, ADULT 10/23/2016 ROLANDO RUVALCABA MD, Ot Z79.811 SKILLED NURSING (CURRENT) USE OF AROMATASE INH 10/23/2016 ROLANDO RUVALCABA MD, Ot Z79.899 OTHER VASCULAR NURSE (CURRENT) DRUG THERAPY 10/23/2016 ROLANDO RUVALCABA MD, Ot Z92.3 PERSONAL HISTORY OF IRRADIATION 12/06/2016 ROLANDO RUVALCABA MD, Ot C50.312 MALIG NEOPLASM OF LOWER-INNER QUADRANT O 12/06/2016 ROLANDO RUVALCABA MD, Ot N61.0 MASTITIS WITHOUT ABSCESS 12/06/2016 ROLANDO RUVALCABA MD, Ot N64.89 OTHER SPECIFIED DISORDERS OF BREAST 12/06/2016 ROLANDO RUVALCABA MD, Ot Z98.890 OTHER SPECIFIED POSTPROCEDURAL STATES 12/12/2016 ROLANDO RUVALCABA MD, Ot C50.312 MALIG NEOPLASM OF LOWER-INNER QUADRANT O 12/12/2016 ROLANDO RUVALCABA MD, Ot E66.9 OBESITY, UNSPECIFIED 12/12/2016 ROLANDO RUVALCABA MD, Ot I10 ESSENTIAL (PRIMARY) HYPERTENSION 12/12/2016 ROLANDO RUVALCABA MD, Ot M81.0 AGE-RELATED OSTEOPOROSIS W/O CURRENT PAT 12/12/2016 ROLANDO RUVALCABA MD, Ot R00.0 TACHYCARDIA, UNSPECIFIED 12/12/2016 ROLANDO RUVALCABA MD, Ot Z17.0 ESTROGEN RECEPTOR POSITIVE STATUS [ER+] 12/12/2016 ROLANDO RUVALCABA MD, Ot Z45.2 ENCOUNTER FOR ADJUSTMENT AND MANAGEMENT 12/12/2016 ROLANDO RUVALCABA MD, Ot Z68.32 BODY MASS INDEX (BMI) 32.0-32.9, ADULT 12/12/2016 ROLANDO RUVALCABA MD, Ot Z79.811 SKILLED NURSING (CURRENT) USE OF AROMATASE INH 12/12/2016 ROLANDO RUVALCABA MD, Ot Z79.899 OTHER SKILLED NURSING (CURRENT) DRUG THERAPY 12/12/2016 ROLANDO RUVALCABA MD, Ot Z92.3 PERSONAL HISTORY OF IRRADIATION 01/03/2017 ROLANDO RUVALCABA MD, Ot C50.312 MALIG NEOPLASM OF LOWER-INNER QUADRANT O 01/03/2017 ROLANDO RUVALCABA MD, Ot E66.9 OBESITY, UNSPECIFIED 01/03/2017 ROLANDO RUVALCABA MD, Ot I10 ESSENTIAL (PRIMARY) HYPERTENSION 01/03/2017 ROLANDO RUVALCABA MD, Ot M81.0 AGE-RELATED OSTEOPOROSIS W/O CURRENT PAT 01/03/2017 ROLANDO RUVALCABA MD, Ot R00.0 TACHYCARDIA, UNSPECIFIED 01/03/2017 ROLANDO RUVALCABA MD, Ot Z17.0 ESTROGEN RECEPTOR POSITIVE STATUS [ER+] 01/03/2017 ROLANDO RUVALCABA MD, Ot Z45.2 ENCOUNTER FOR ADJUSTMENT AND MANAGEMENT 01/03/2017 ROLANDO RUVALCABA MD, Ot Z68.32 BODY MASS INDEX (BMI) 32.0-32.9, ADULT 01/03/2017 ROLANDO RUVALCABA MD, Ot Z79.811 VASCULAR NURSE (CURRENT) USE OF AROMATASE INH 01/03/2017 ROLANDO RUVALCABA MD, Ot Z79.899 OTHER VASCULAR NURSE (CURRENT) DRUG THERAPY 01/03/2017 ROLANDO RUVALCABA MD, Ot Z92.3 PERSONAL HISTORY OF IRRADIATION 01/22/2017 ROLANDO RUVALCABA MD, Ot C50.312 MALIG NEOPLASM OF LOWER-INNER QUADRANT O 01/22/2017 ROLANDO RUVALCABA MD, Ot E66.9 OBESITY, UNSPECIFIED 01/22/2017 ROLANDO RUVALCABA MD, Ot I10 ESSENTIAL (PRIMARY) HYPERTENSION 01/22/2017 ROLANDO RUVALCABA MD, Ot M81.0 AGE-RELATED OSTEOPOROSIS W/O CURRENT PAT 01/22/2017 ROLANDO RUVALCABA MD, Ot R00.0 TACHYCARDIA, UNSPECIFIED 01/22/2017 ROLANDO RUVALCABA MD, Ot Z17.0 ESTROGEN RECEPTOR POSITIVE STATUS [ER+] 01/22/2017 ROLANDO RUVALCABA MD, Ot Z45.2 ENCOUNTER FOR ADJUSTMENT AND MANAGEMENT 01/22/2017 ROLANDO RUVALCABA MD, Ot Z68.32 BODY MASS INDEX (BMI) 32.0-32.9, ADULT 01/22/2017 ROLANDO RUVALCABA MD, Ot Z79.811 VASCULAR NURSE (CURRENT) USE OF AROMATASE INH 01/22/2017 ROLANDO RUVALCABA MD, Ot Z79.899 OTHER SKILLED NURSING (CURRENT) DRUG THERAPY 01/22/2017 ROLANDO RUVALCABA MD, Ot Z92.3 PERSONAL HISTORY OF IRRADIATION 03/12/2017 ROLANDO RUVALCABA MD, Ot C50.312 MALIG NEOPLASM OF LOWER-INNER QUADRANT O 03/12/2017 ROLANDO RUVALCABA MD, Ot E66.9 OBESITY, UNSPECIFIED 03/12/2017 ROLANDO RUVALCABA MD, Ot I10 ESSENTIAL (PRIMARY) HYPERTENSION 03/12/2017 ROLANDO RUVALCABA MD, Ot M81.0 AGE-RELATED OSTEOPOROSIS W/O CURRENT PAT 03/12/2017 ROLANDO RUVALCABA MD, Ot R00.0 TACHYCARDIA, UNSPECIFIED 03/12/2017 ROLANDO RUVALCABA MD, Ot Z17.0 ESTROGEN RECEPTOR POSITIVE STATUS [ER+] 03/12/2017 ROLANDO RUVALCABA MD, Ot Z45.2 ENCOUNTER FOR ADJUSTMENT AND MANAGEMENT 03/12/2017 ROLANDO RUVALCABA MD, Ot Z68.32 BODY MASS INDEX (BMI) 32.0-32.9, ADULT 03/12/2017 ROLANDO RUVALCABA MD, Ot Z79.811 VASCULAR NURSE (CURRENT) USE OF AROMATASE INH 03/12/2017 ROLANDO RUVALCABA MD, Ot Z79.899 OTHER VASCULAR NURSE (CURRENT) DRUG THERAPY 03/12/2017 ROLANDO RUVALCABA MD, Ot Z92.3 PERSONAL HISTORY OF IRRADIATION 03/14/2017 AKASH YING MD, Ot C50.312 MALIG NEOPLASM OF LOWER-INNER QUADRANT O 03/14/2017 AKASH YING MD, Ot E66.9 OBESITY, UNSPECIFIED 03/14/2017 AKASH YING MD, Ot I10 ESSENTIAL (PRIMARY) HYPERTENSION 03/14/2017 AKASH YING MD, Ot M81.0 AGE-RELATED OSTEOPOROSIS W/O CURRENT PAT 03/14/2017 AKASH YING MD, Ot N61.0 MASTITIS WITHOUT ABSCESS 03/14/2017 AKASH YING MD, Ot N64.89 OTHER SPECIFIED DISORDERS OF BREAST 03/14/2017 AKASH YING MD, Ot R00.0 TACHYCARDIA, UNSPECIFIED 03/14/2017 AKASH YING MD, Ot Z17.0 ESTROGEN RECEPTOR POSITIVE STATUS [ER+] 03/14/2017 AKASH YING MD, Ot Z45.2 ENCOUNTER FOR ADJUSTMENT AND MANAGEMENT 03/14/2017 AKASH YING MD, Ot Z68.32 BODY MASS INDEX (BMI) 32.0-32.9, ADULT 03/14/2017 AKASH YING MD, Ot Z79.811 VASCULAR NURSE (CURRENT) USE OF AROMATASE INH 03/14/2017 AKASH YING MD, Ot Z79.899 OTHER VASCULAR NURSE (CURRENT) DRUG THERAPY 03/14/2017 AKASH YING MD, Ot Z92.3 PERSONAL HISTORY OF IRRADIATION 03/14/2017 AKASH YING MD, Ot Z98.890 OTHER SPECIFIED POSTPROCEDURAL STATES 04/23/2017 AKASH YING MD, Ot C50.312 MALIG NEOPLASM OF LOWER-INNER QUADRANT O 04/23/2017 AKASH YING MD, Ot E66.9 OBESITY, UNSPECIFIED 04/23/2017 AKASH YING MD, Ot I10 ESSENTIAL (PRIMARY) HYPERTENSION 04/23/2017 AKASH YING MD, Ot M81.0 AGE-RELATED OSTEOPOROSIS W/O CURRENT PAT 04/23/2017 AKASH YING MD, Ot N61.0 MASTITIS WITHOUT ABSCESS 04/23/2017 AKASH YING MD, Ot N64.89 OTHER SPECIFIED DISORDERS OF BREAST 04/23/2017 AKASH YING MD, Ot R00.0 TACHYCARDIA, UNSPECIFIED 04/23/2017 AKASH YING MD, Ot Z17.0 ESTROGEN RECEPTOR POSITIVE STATUS [ER+] 04/23/2017 AKASH YING MD, Ot Z45.2 ENCOUNTER FOR ADJUSTMENT AND MANAGEMENT 04/23/2017 AKASH YING MD, Ot Z68.32 BODY MASS INDEX (BMI) 32.0-32.9, ADULT 04/23/2017 AKASH YING MD, Ot Z79.811 SKILLED NURSING (CURRENT) USE OF AROMATASE INH 04/23/2017 AKASH YING MD, Ot Z79.899 OTHER SKILLED NURSING (CURRENT) DRUG THERAPY 04/23/2017 AKASH YING MD, Ot Z92.3 PERSONAL HISTORY OF IRRADIATION 04/23/2017 AKASH YING MD, Ot Z98.890 OTHER SPECIFIED POSTPROCEDURAL STATES 05/10/2017 AKASH YING MD, Ot C50.312 MALIG NEOPLASM OF LOWER-INNER QUADRANT O 05/10/2017 AKASH YING MD, Ot E66.9 OBESITY, UNSPECIFIED 05/10/2017 AKASH YING MD, Ot I10 ESSENTIAL (PRIMARY) HYPERTENSION 05/10/2017 AKASH YING MD, Ot M81.0 AGE-RELATED OSTEOPOROSIS W/O CURRENT PAT 05/10/2017 AKASH YING MD, Ot N61.0 MASTITIS WITHOUT ABSCESS 05/10/2017 AKASH YING MD, Ot N64.89 OTHER SPECIFIED DISORDERS OF BREAST 05/10/2017 AKASH YING MD, Ot R00.0 TACHYCARDIA, UNSPECIFIED 05/10/2017 AKASH YING MD, Ot Z17.0 ESTROGEN RECEPTOR POSITIVE STATUS [ER+] 05/10/2017 AKASH YING MD, Ot Z45.2 ENCOUNTER FOR ADJUSTMENT AND MANAGEMENT 05/10/2017 AKASH YING MD, Ot Z68.32 BODY MASS INDEX (BMI) 32.0-32.9, ADULT 05/10/2017 AKASH YING MD, Ot Z79.811 SKILLED NURSING (CURRENT) USE OF AROMATASE INH 05/10/2017 AKASH YING MD, Ot Z79.899 OTHER VASCULAR NURSE (CURRENT) DRUG THERAPY 05/10/2017 AKASH YING MD, Ot Z92.3 PERSONAL HISTORY OF IRRADIATION 05/10/2017 AKASH YING MD, Ot Z98.890 OTHER SPECIFIED POSTPROCEDURAL STATES 05/16/2017 AKASH YING MD, Ot C50.312 MALIG NEOPLASM OF LOWER-INNER QUADRANT O 05/16/2017 AKASH YING MD, Ot E66.9 OBESITY, UNSPECIFIED 05/16/2017 AKASH YING MD, Ot I10 ESSENTIAL (PRIMARY) HYPERTENSION 05/16/2017 AKASH YING MD, Ot M81.0 AGE-RELATED OSTEOPOROSIS W/O CURRENT PAT 05/16/2017 AKASH YING MD, Ot N61.0 MASTITIS WITHOUT ABSCESS 05/16/2017 AKASH YING MD, Ot N64.89 OTHER SPECIFIED DISORDERS OF BREAST 05/16/2017 AKASH YING MD, Ot R00.0 TACHYCARDIA, UNSPECIFIED 05/16/2017 AKASH YING MD, Ot Z17.0 ESTROGEN RECEPTOR POSITIVE STATUS [ER+] 05/16/2017 AKASH YING MD, Ot Z45.2 ENCOUNTER FOR ADJUSTMENT AND MANAGEMENT 05/16/2017 AKASH YING MD, Ot Z68.32 BODY MASS INDEX (BMI) 32.0-32.9, ADULT 05/16/2017 AKASH YING MD, Ot Z79.811 VASCULAR NURSE (CURRENT) USE OF AROMATASE INH 05/16/2017 AKASH YING MD, Ot Z79.899 OTHER SKILLED NURSING (CURRENT) DRUG THERAPY 05/16/2017 AKASH YING MD, Ot Z92.3 PERSONAL HISTORY OF IRRADIATION 05/16/2017 AKASH YING MD, Ot Z98.890 OTHER SPECIFIED POSTPROCEDURAL STATES 06/25/2017 AKASH YING MD, Ot C50.312 MALIG NEOPLASM OF LOWER-INNER QUADRANT O 06/25/2017 AKASH YING MD, Ot E66.9 OBESITY, UNSPECIFIED 06/25/2017 AKASH YING MD Ot I10 ESSENTIAL (PRIMARY) HYPERTENSION 06/25/2017 AKASH YING MD, Ot M81.0 AGE-RELATED OSTEOPOROSIS W/O CURRENT PAT 06/25/2017 AKASH YING MD, Ot N61.0 MASTITIS WITHOUT ABSCESS 06/25/2017 AKASH YING MD, Ot N64.89 OTHER SPECIFIED DISORDERS OF BREAST 06/25/2017 AKASH YING MD, Ot R00.0 TACHYCARDIA, UNSPECIFIED 06/25/2017 AKASH YING MD, Ot Z17.0 ESTROGEN RECEPTOR POSITIVE STATUS [ER+] 06/25/2017 AKASH YNIG MD, Ot Z45.2 ENCOUNTER FOR ADJUSTMENT AND MANAGEMENT 06/25/2017 AKASH YING MD, Ot Z68.32 BODY MASS INDEX (BMI) 32.0-32.9, ADULT 06/25/2017 AKASH YING MD, Ot Z79.811 SKILLED NURSING (CURRENT) USE OF AROMATASE INH 06/25/2017 AKASH YING MD, Ot Z79.899 OTHER VASCULAR NURSE (CURRENT) DRUG THERAPY 06/25/2017 AKASH YING MD, Ot Z92.3 PERSONAL HISTORY OF IRRADIATION 06/25/2017 AKASH YING MD, Ot Z98.890 OTHER SPECIFIED POSTPROCEDURAL STATES 08/12/2017 AKASH YING MD, Ot C50.312 MALIG NEOPLASM OF LOWER-INNER QUADRANT O 08/12/2017 AKASH YING MD, Ot E66.9 OBESITY, UNSPECIFIED 08/12/2017 AKASH YING MD, Ot I10 ESSENTIAL (PRIMARY) HYPERTENSION 08/12/2017 AKASH YING MD, Ot M81.0 AGE-RELATED OSTEOPOROSIS W/O CURRENT PAT 08/12/2017 AKASH YING MD, Ot N61.0 MASTITIS WITHOUT ABSCESS 08/12/2017 AKASH YING MD, Ot N64.89 OTHER SPECIFIED DISORDERS OF BREAST 08/12/2017 AKASH YING MD, Ot R00.0 TACHYCARDIA, UNSPECIFIED 08/12/2017 AKASH YING MD, Ot Z17.0 ESTROGEN RECEPTOR POSITIVE STATUS [ER+] 08/12/2017 AKASH YING MD, Ot Z45.2 ENCOUNTER FOR ADJUSTMENT AND MANAGEMENT 08/12/2017 AKASH YING MD, Ot Z68.32 BODY MASS INDEX (BMI) 32.0-32.9, ADULT 08/12/2017 AKASH YING MD, Ot Z79.811 SKILLED NURSING (CURRENT) USE OF AROMATASE INH 08/12/2017 AKASH YING MD, Ot Z79.899 OTHER SKILLED NURSING (CURRENT) DRUG THERAPY 08/12/2017 AKASH YING MD, Ot Z92.3 PERSONAL HISTORY OF IRRADIATION 08/12/2017 AKASH YING MD, Ot Z98.890 OTHER SPECIFIED POSTPROCEDURAL STATES 08/14/2017 AKASH YING MD, Ot C50.312 MALIG NEOPLASM OF LOWER-INNER QUADRANT O 08/14/2017 AKASH YING MD, Ot M85.88 OTH DISRD OF BONE DENSITY AND STRUCTURE, 09/04/2017 AKASH YING MD, Ot C50.312 MALIG NEOPLASM OF LOWER-INNER QUADRANT O 09/04/2017 AKASH YING MD, Ot E66.9 OBESITY, UNSPECIFIED 09/04/2017 AKASH YING MD, Ot I10 ESSENTIAL (PRIMARY) HYPERTENSION 09/04/2017 AKASH YING MD, Ot M81.0 AGE-RELATED OSTEOPOROSIS W/O CURRENT PAT 09/04/2017 AKASH YING MD, Ot N61.0 MASTITIS WITHOUT ABSCESS 09/04/2017 AKASH YING MD, Ot N64.89 OTHER SPECIFIED DISORDERS OF BREAST 09/04/2017 AKASH YING MD, Ot R00.0 TACHYCARDIA, UNSPECIFIED 09/04/2017 AKASH YING MD, Ot Z17.0 ESTROGEN RECEPTOR POSITIVE STATUS [ER+] 09/04/2017 AKASH YING MD, Ot Z45.2 ENCOUNTER FOR ADJUSTMENT AND MANAGEMENT 09/04/2017 AKASH YING MD, Ot Z68.32 BODY MASS INDEX (BMI) 32.0-32.9, ADULT 09/04/2017 AKASH YING MD, Ot Z79.811 SKILLED NURSING (CURRENT) USE OF AROMATASE INH 09/04/2017 AKASH YING MD, Ot Z79.899 OTHER VASCULAR NURSE (CURRENT) DRUG THERAPY 09/04/2017 AKASH YING MD, Ot Z92.3 PERSONAL HISTORY OF IRRADIATION 09/04/2017 AKASH YING MD, Ot Z98.890 OTHER SPECIFIED POSTPROCEDURAL STATES 09/05/2017 MEENA PUENTES MD, Ot Z01.818 ENCOUNTER FOR OTHER PREPROCEDURAL EXAMIN 09/05/2017 MEENA PUENTES MD, Ot Z12.11 ENCOUNTER FOR SCREENING FOR MALIGNANT NE Procedures There is no data. Results There is no data. Encounters ACCT No. Visit Date/Time Discharge Status Pt. Type Provider Facility Loc./Unit Complaint [id number] 09/04/2017 05:30:00 09/04/2017 09:36:00 DIS Outpatient MEENA PUENTES MD [facility] PREOP COLONOSCOPY [id number] 08/13/2017 00:23:00 08/13/2017 23:59:59 CLS Preadmit AKASH YING MD [facility] ONC [id number] 08/08/2017 13:23:00 08/12/2017 00:01:00 DIS Outpatient AKASH YING MD [facility] ONC [id number] 07/31/2017 09:06:00 07/31/2017 23:59:59 CLS Outpatient AKASH YING MD [facility] RAD OSTEOPOROSIS M81.0 [id number] 04/24/2017 13:05:00 05/10/2017 00:01:00 DIS Outpatient AKASH YING MD [facility] ONC [id number] 01/30/2017 09:54:00 03/12/2017 15:49:00 DIS Outpatient ROLANDO RUVALCABA MD [facility] ONC [id number] 12/06/2016 10:26:00 12/12/2016 00:01:00 DIS Outpatient ROLANDO RUVALCABA MD [facility] ONC [id number] 11/18/2016 09:19:00 11/18/2016 23:59:59 CLS Outpatient ROLANDO RUVALCABA MD [facility] RAD BREAST CA LT,CELLULITIS OF BREAST [id number] 08/15/2016 13:25:00 08/18/2016 00:01:00 DIS Outpatient ROLANDO RUVALCABA MD [facility] ONC [id number] 05/20/2016 13:23:00 05/20/2016 23:59:59 CLS Outpatient ROLANDO RUVALCABA MD [facility] RAD BREAST CA,LT [id number] 04/18/2016 09:29:00 05/20/2016 13:57:00 DIS Outpatient ROLANDO RUVALCABA MD [facility] ONC [id number] 01/26/2016 09:56:00 02/22/2016 00:01:00 DIS Outpatient ROLANDO RUVALCABA MD [facility] ONC [id number] 02/01/2016 13:52:00 02/01/2016 23:59:59 CLS SONIDO Shin MD [facility] LAB [id number] 02/01/2016 11:26:00 02/01/2016 23:59:59 CLS Outpatient ROLANDO RUVALCABA MD [facility] RAD OSTEOPOROSIS, CHEMO INHIBITOR [id number] 01/05/2016 14:57:00 01/05/2016 23:59:59 CLS Preadmit CARRIE SANDERS [facility] ONC [id number] 12/01/2015 13:43:00 12/01/2015 23:59:59 CLS Outpatient ROLANDO RUVALCABA MD [facility] CARD MONITOR CARDIOTOXIC DRUG THEREAPY, L BREAST CANCER [id number] 11/15/2015 13:17:00 11/15/2015 23:59:59 CLS Outpatient ROLANDO RUVALCABA MD [facility] RAD LEFT BREAST CA [id number] 11/02/2015 14:00:00 11/14/2015 00:01:00 DIS Outpatient ROLANDO RUVALCABA MD [facility] ONC [id number] 08/16/2015 10:43:00 08/16/2015 23:59:59 CLS Outpatient ROLANDO RUVALCABA MD [facility] CARD CARDIOTOXIC DRUGS [id number] 08/10/2015 12:47:00 08/15/2015 00:01:00 DIS Outpatient ROLANDO RUVALCABA MD [facility] ONC [id number] 07/27/2015 08:49:00 07/27/2015 23:59:59 CLS Outpatient ROLANDO RUVALCABA MD [facility] RAD BREAST CA,OSTEOPENIA [id number] 06/12/2015 08:52:00 06/12/2015 23:59:59 CLS Outpatient ROLANDO RUVALCABA MD [facility] CARD MONITORING CARDIOTOXIC DRUGS [id number] 05/09/2015 11:59:00 05/10/2015 00:01:00 DIS Outpatient ROLANDO RUVALCABA MD [facility] ONC [id number] 04/25/2015 12:58:00 04/25/2015 23:59:59 CLS Outpatient CARRIE SANDERS [facility] ONC [id number] 04/03/2015 11:19:00 04/03/2015 23:59:59 CLS Outpatient ROLANDO RUVALCABA MD [facility] CARD CARDIOTOXIC DRUG THERAPY [id number] 03/27/2015 10:54:00 03/27/2015 23:59:59 CLS Outpatient ROLANDO RUVALCABA MD [facility] CARD BREAST CANCER [id number] 03/22/2015 11:28:00 03/27/2015 00:01:00 DIS Outpatient ROLANDO RUVALCABA MD [facility] ONC [id number] 01/24/2015 10:12:00 01/24/2015 23:59:59 CLS Outpatient CARRIE SANDERS [facility] ONC [id number] 01/19/2015 08:25:00 01/19/2015 14:07:00 [facility] [id number] 01/18/2015 08:58:00 01/18/2015 23:59:59 CLS Outpatient ROLANDO RUVALCABA MD [facility] RAD BREAST CA,ELEVATED LIVER ENZYMES [id number] 01/13/2015 11:45:00 01/13/2015 23:59:59 CLS Outpatient MEENA PUENTES MD [facility] PREOP BREAST CANCER LEFT [id number] 01/10/2015 08:39:00 01/10/2015 23:59:59 CLS Outpatient SONIDO HARDIN MD [facility] LAB [id number] 01/05/2015 10:57:00 01/05/2015 23:59:59 CLS Outpatient ROLANDO RUVALCABA MD [facility] CARD CARDIOTOXIC [id number] 09/26/2014 13:59:00 09/26/2014 23:59:59 CLS Outpatient ROLANDO RUVALCABA MD [facility] ONC [id number] 09/20/2014 12:20:00 09/20/2014 23:59:59 CLS Outpatient MUKESH PRITCHARD [facility] RAD BREAST LESIONS [id number] 09/19/2014 12:57:00 09/19/2014 23:59:59 CLS Outpatient SONIDO HARDIN MD [facility] RAD FOLLOW UP FROM MAMMO LEFT BREAST NODULE [id number] 03/17/2014 12:44:00 03/17/2014 23:59:59 CLS Outpatient SONIDO HARDIN MD [facility] RAD FOLLOW UP [id number] 10/15/2013 08:38:00 10/15/2013 23:59:59 CLS Outpatient MUKESH PRITCHARD [facility] RAD LESION LEFT BREAST [id number] 10/06/2013 12:28:00 10/06/2013 23:59:59 CLS Outpatient MUKESH PRITCHARD [facility] RAD ABN MAMMO [id number] 09/22/2013 11:39:00 09/22/2013 23:59:59 CLS Outpatient SONIDO HARDIN MD [facility] RAD ROUTINE [id number] 09/10/2017 11:00:00 PEN Preadmit MEENA PUENTES MD [facility] ENDO SCREENING [id number] 10/06/2014 07:03:00 Document Registration [id number] 10/05/2014 13:43:00 Document Registration [id number] 10/04/2014 05:46:00 Document Registration [id number] 10/09/2012 06:32:00 Document Registration [id number] 10/05/2012 09:12:00 Document Registration [id number] 08/19/2012 06:34:00 Document Registration [id number] 08/13/2012 11:19:00 Document Registration [id number] 07/15/2012 08:58:00 Document Registration [id number] 04/16/2012 08:09:00 Document Registration
[2017-09-10] MEDS ORDERED: ONDANSETRON 4 MG/2 ML (SDV) Z0FRAN IV PRN (11:00)
[2017-09-10] MEDS ORDERED: morphine INJ 10 MG/ML 1ML (SYR OR VIAL) IV PRN (11:00)
[2017-09-10] MEDS ORDERED: ACETAMINOPHEN 325 MG TABLET/CAPLET (TYLENOL) PO PRN (11:00)
[2017-09-10] MEDS ORDERED: HYDROcodone/APAP 5 MG/325 MG (LORTAB) TAB PO PRN (11:00)
[2017-09-10] MEDS ORDERED: NS IV 500 ML 500 ML IV PRN (11:14)
[2017-09-10 11:15] VITALS: BP 134/98
[2017-09-10] MEDS ORDERED: LIDOCAINE JELLY 2% (XYLOCAINE) 5 ML TUBE MM PRN (11:15)
[2017-09-10] MEDS ORDERED: LIDOCAINE JELLY 2% (XYLOCAINE) 5 ML TUBE ONE (13:01)
[2017-09-10] MEDS ORDERED: MIDAZOLAM 2 MG/2 ML (VERSED) VIAL ONE ×4 (13:02)
[2017-09-10] MEDS ORDERED: fentaNYL INJECTION 100 MCG/2 ML AMP ONE (13:02)
[2017-09-10] MEDS: MIDAZOLAM 2 MG/2 ML (VERSED) VIAL IVP PRN ×2 (13:10→13:13)
[2017-09-10] MEDS: fentaNYL INJECTION 100 MCG/2 ML AMP IVP PRN ×2 (13:11→13:14)
--- NOTE | 2017-09-10 13:44 | Progress Note-Post Operative ---
Post-Operative Progess Note Surgeon (s)/Geodetic Surveyor (s) Surgeon MEENA PUENTES MD Geodetic Surveyor: none Pre-Operative Diagnosis screening, family hx ca Post-Operative Diagnosis chronic stage 1 ext and int hemorrhoids. Procedure & Operative Findings Date of Procedure 09/10/17 Procedure Performed/Findings Colonoscopy. Anesthesia Type CS Estimated Blood Loss Estimated blood loss (mL): minimal Specimens/Packing Specimens Removed none MEENA PUENTES MD Sep 10, 2017 1:44 pm
--- NOTE | 2017-09-10 13:46 | Discharge Inst-Surgical ---
D/C Lap Instructions-KIDO New, Converted, or Re-Newed RX: RX on Chart Follow Up 5 years Activity as tolerated High Fiber Diet 25g or more per day Avoid Alcohol, Caffeine, Spicy [place] and Acid foods. Drink 64 fluid oz or more of fluids per day. Symptoms to Report: Fever over 101 degree F, Nausea/Vomiting If any problems/questions: Contact your physician or go to Emergency Room MEENA PUENTES MD Sep 10, 2017 1:46 pm
[2017-09-10 13:55] VITALS: BP 111/69
[2017-09-10 14:20] VITALS: BP 111/88
[2017-09-10 14:30] VITALS: BP 111/88
--- NOTE | 2017-09-10 23:03 | OPERATIVE REPORT ---
DATE OF SERVICE: 09/10/2017 ATTENDING PRIMARY CARE PHYSICIAN: Carolina Castanon MD. PREOPERATIVE DIAGNOSIS: Screening with a family history of colon cancer as well as personal history of breast cancer. POSTOPERATIVE DIAGNOSIS: Chronic stage I external and internal hemorrhoids, remainder of the rectum and colon were normal. PROCEDURE: Colonoscopy. SURGEON: Meena Puentes MD. ANESTHESIA: Conscious sedation. ESTIMATED BLOOD LOSS: Minimal. FINDINGS: Chronic stage I external and internal hemorrhoids. Remainder of the rectum and colon were normal. DISPOSITION: The patient tolerated the procedure well. INDICATIONS: The patient is a 56-year-old female known to us. She was found to have a lesion in the left breast in 2013. She underwent an ultrasound-guided biopsy, which was found to be benign. She then reported another lesion was identified six months later, which was monitored. She underwent a followup mammogram in September 2014, which did show that the lesion had changed slightly. The dimensions of the lesion were approximately 0.6 x 0.5 cm in size. 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 The tumor grade was well differentiated. She has a history of cancers in the family including maternal aunt and maternal niece having a breast cancer as well as a maternal uncle with colon cancer and another maternal uncle with colon cancer and leukemia. She is in need of a screening colonoscopy. Her last colonoscopy was in 2009. At that time, she was found to have some form of colitis; however, no polyps or any neoplasms identified. DESCRIPTION OF PROCEDURE: The patient was brought to the endoscopy suite, laid in the left lateral decubitus position. After adequate IV pain and sedative medications and conscious sedation anesthesia, a digital rectal examination was performed. Chronic stage I external and internal hemorrhoids were identified, which were not actively edematous nor inflamed and no bleeding. Normal sphincter tone was felt and there were no palpable masses. The endoscope was then intubated into the anus and the rectum gently insufflated. The endoscope was then advanced to the valves of Pereira of the rectum with no polyps or any neoplasms identified. The endoscope was then advanced through the sigmoid colon where no diverticulosis was identified. The endoscope was then advanced to the remainder of the descending, transverse and ascending colon and the cecum. These segments were normal. There were no polyps or any neoplasms identified throughout the colon or rectum. The endoscope was then slowly withdrawn while taking a second look and suctioning of residual air with no additional findings. The patient tolerated the procedure well. We will recommend a high-fiber diet with at least 25 grams of fiber per day as well as at least 64 fluid ounces of water daily to promote soft stools on a daily basis. She does not need another colonoscopy for another 5 years. Job ID: [id number] DocumentID: [id number] Dictated Date: 09/10/2017 13:39:55 Filler Block Inserter Remover Date: 09/10/2017 22:55:16 Dictated By: MEENA PUENTES MD
== END 2017-09-10 14:30 | disposition home or self-care (01) ==
LOC: ENDO 10:38
PROVIDERS: ATTEND Surgery
DX: Z12.11 Encounter for screening for malignant neoplasm of colon (principal); K64.0 First degree hemorrhoids; Z80.0 Family history of malignant neoplasm of digestive organs; Z85.3 Personal history of malignant neoplasm of breast; I10 Essential (primary) hypertension; F41.9 Anxiety disorder, unspecified; F32.9 Major depressive disorder, single episode, unspecified; Z79.899 Other long term (current) drug therapy

== ENCOUNTER 2017-10-30 10:04 | Outpatient (RCR) | payer OTHER ==
[2017-10-30 10:16] LABS: BASOPHILS # (AUTO) 0.1 10^3/uL (0.0-0.1); BASOPHILS % (AUTO) 1 % (0-10); EOSINOPHILS # (AUTO) 0.1 10^3/uL (0.0-0.3); EOSINOPHILS % (AUTO) 2 % (0-10); HEMATOCRIT 45 % (35-52); HEMOGLOBIN 15.7 G/DL (11.5-16.0); LYMPHOCYTES # (AUTO) 1.6 X 10^3 (1.0-4.0); LYMPHOCYTES % (AUTO) 25 % (12-44); MEAN CORPUSCULAR HEMOGLOBIN 32 PG (25-34); MEAN CORPUSCULAR HGB CONC 35 G/DL (32-36); MEAN CORPUSCULAR VOLUME 92 FL (80-99); MEAN PLATELET VOLUME 8.7 FL (7.4-10.4); MONOCYTES # (AUTO) 0.7 X 10^3 (0.0-1.0); MONOCYTES % (AUTO) 11 % (0-12); NEUTROPHILS # (AUTO) 3.9 X 10^3 (1.8-7.8); NEUTROPHILS % (AUTO) 61 % (42-75); PLATELET COUNT 259 10^3/uL (130-400); RED BLOOD COUNT 4.91 10^6/uL (4.35-5.85); RED CELL DISTRIBUTION WIDTH 12.7 % (10.0-14.5); WHITE BLOOD COUNT 6.3 10^3/uL (4.3-11.0)
[2017-10-30 10:34] LABS: ALANINE AMINOTRANSFERASE 25 U/L (0-55); ALBUMIN 4.6 GM/DL (3.2-4.5); ALKALINE PHOSPHATASE 62 U/L (40-136); BILIRUBIN,TOTAL 0.6 MG/DL (0.1-1.0); BUN/CREATININE RATIO 17; CARBON DIOXIDE 30 MMOL/L (21-32); CHLORIDE 104 MMOL/L (98-107); CREATININE SERUM 0.81 MG/DL (0.60-1.30); GFR ESTIMATED > 60; GLUCOSE 90 MG/DL (70-105); SODIUM 140 MMOL/L (135-145); TOTAL PROTEIN 7.8 GM/DL (6.4-8.2)
== END 2018-01-28 | disposition home or self-care (01) ==
LOC: ONC 10:04
PROVIDERS: ATTEND Internal Medicine Hematology & Oncology
DX: C50.312 Malignant neoplasm of lower-inner quadrant of left female breast (principal); N64.89 Other specified disorders of breast; M81.0 Age-related osteoporosis without current pathological fracture; I10 Essential (primary) hypertension; R00.0 Tachycardia, unspecified; Z17.0 Estrogen receptor positive status [ER+]; Z79.811 Long term (current) use of aromatase inhibitors; Z79.899 Other long term (current) drug therapy; Z92.3 Personal history of irradiation; Z98.890 Other specified postprocedural states
CPT/HCPCS: 36415; 80053; 85025; 99213

== ENCOUNTER → 2017-11-19 | Outpatient (CLI) | payer OTHER ==
--- NOTE | 2017-11-19 11:00 | Diagnostic Imaging Report ---
INDICATION: Left breast carcinoma. COMPARISON: 11/18/2016, 05/20/2016, and 11/15/2015. TECHNIQUE: Screening digital mammography was performed bilaterally with a Computer Aided Detection (CAD) system. FINDINGS: Both breasts remain heterogeneously dense, limiting the sensitivity of mammography. Post lumpectomy changes in the medial left breast appear stable with an adjacent biopsy clip in place. The circumscribed density at the biopsy site is stable and again most likely represents a seroma. No suspicious microcalcifications are identified. The axillae are unremarkable. IMPRESSION: Stable bilateral mammograms with no mammographic features suspicious for malignancy identified. ACR BI-RADS Category 2: Benign findings. Result letter will be mailed to the patient. Note: At least 10% of breast cancer is not imaged by mammography. Dictated by: Dictated on workstation # [id number]
== END ==
LOC: RAD 09:44
PROVIDERS: ATTEND Internal Medicine Hematology & Oncology
DX: Z85.3 Personal history of malignant neoplasm of breast (principal)
CPT/HCPCS: 77067

== ENCOUNTER 2018-04-30 09:58 | Outpatient (RCR) | payer OTHER ==
[~2018-04-30 09:58] MED LIST changes: +DENOSUMAB 60 MG/1 ML (PROLIA) CANCER CTR SQ SCH; -LOSA25TA21 PO; +LOSA25TA6 PO
[2018-04-30 10:07] LABS: BASOPHILS # (AUTO) 0.1 10^3/uL (0.0-0.1); BASOPHILS % (AUTO) 1 % (0-10); EOSINOPHILS # (AUTO) 0.1 10^3/uL (0.0-0.3); EOSINOPHILS % (AUTO) 2 % (0-10); HEMATOCRIT 42 % (35-52); HEMOGLOBIN 14.9 G/DL (11.5-16.0); LYMPHOCYTES # (AUTO) 1.4 X 10^3 (1.0-4.0); LYMPHOCYTES % (AUTO) 26 % (12-44); MEAN CORPUSCULAR HEMOGLOBIN 33 PG (25-34); MEAN CORPUSCULAR HGB CONC 36 G/DL (32-36); MEAN CORPUSCULAR VOLUME 92 FL (80-99); MEAN PLATELET VOLUME 9.1 FL (7.4-10.4); MONOCYTES # (AUTO) 0.5 X 10^3 (0.0-1.0); MONOCYTES % (AUTO) 10 % (0-12); NEUTROPHILS # (AUTO) 3.3 X 10^3 (1.8-7.8); NEUTROPHILS % (AUTO) 60 % (42-75); PLATELET COUNT 245 10^3/uL (130-400); RED BLOOD COUNT 4.57 10^6/uL (4.35-5.85); RED CELL DISTRIBUTION WIDTH 12.4 % (10.0-14.5); WHITE BLOOD COUNT 5.4 10^3/uL (4.3-11.0)
[2018-04-30 10:28] LABS: ALANINE AMINOTRANSFERASE 18 U/L (0-55); ALBUMIN 4.6 GM/DL (3.2-4.5); ALKALINE PHOSPHATASE 50 U/L (40-136); BILIRUBIN,TOTAL 0.7 MG/DL (0.1-1.0); BUN/CREATININE RATIO 20; CALCIUM 9.7 MG/DL (8.5-10.1); CARBON DIOXIDE 24 MMOL/L (21-32); CHLORIDE 106 MMOL/L (98-107); CREATININE SERUM 0.83 MG/DL (0.60-1.30); GFR ESTIMATED > 60; GLUCOSE 97 MG/DL (70-105); POTASSIUM 4.1 MMOL/L (3.6-5.0); SODIUM 140 MMOL/L (135-145); TOTAL PROTEIN 7.7 GM/DL (6.4-8.2)
== END 2018-05-14 | disposition home or self-care (01) ==
LOC: ONC 09:58
PROVIDERS: ATTEND Internal Medicine Hematology & Oncology
DX: C50.312 Malignant neoplasm of lower-inner quadrant of left female breast (principal); M81.0 Age-related osteoporosis without current pathological fracture; N64.89 Other specified disorders of breast; I10 Essential (primary) hypertension; R00.0 Tachycardia, unspecified; Z17.0 Estrogen receptor positive status [ER+]; Z79.811 Long term (current) use of aromatase inhibitors; Z79.899 Other long term (current) drug therapy; Z92.3 Personal history of irradiation; Z98.890 Other specified postprocedural states
CPT/HCPCS: 36415; 80053; 85025; 96372; 99213

== ENCOUNTER → 2018-08-06 | Outpatient (CLI) | payer OTHER ==
[~2018-08-06] MED LIST changes: -DENOSUMAB 60 MG/1 ML (PROLIA) CANCER CTR SQ SCH
--- NOTE | 2018-08-06 10:09 | Diagnostic Imaging Report ---
INDICATION: Postmenopausal screening. COMPARISON: 07/31/2017 FINDINGS: AP Spine L2-L4: [BMD (g/cm2): .923] [T-Score: -2.3] [Z-Score: -1.8] [BMD Previous: .943] [BMD % Change: -2.1] LT Hip Neck: [BMD (g/cm2): .883] [T-Score: -1.1] [Z-Score: -0.3] LT Hip Total: [BMD (g/cm2):.952] [T-Score:-0.4] [Z-Score: 0.0] [BMD Previous: .902] [BMD % Change: n/a] RT Hip Neck: [BMD (g/cm2):.846] [T-Score:-1.4] [Z-Score:-0.6] RT Hip Total: [BMD (g/cm2):.901] [T-score:-0.8] [Z-Score:-0.4] [BMD Previous:.880] [BMD % Change:n/a] *Indicates significant change from prior examination based on 95% confidence level. World Health Organization criteria for BMD interpretation classify patients as Normal (T-score at or above -1.0), Osteopenic (T-score between -1.0 and -2.5) or Osteoporotic (T-score at or below -2.5). LIMITATIONS AND MODIFICATION: None. FRACTURE RISK (FRAX SCORE): The ten year probability of (%): Major Osteoporotic Fracture: [Not applicable] Hip Fracture: [Not applicable] IMPRESSION: 1. Osteopenia (Low bone mass). 2. No significant change in bone mineral density since prior examination. 3. See below National Osteoporosis Foundation guidelines on when to potentially initiate pharmacologic therapy. Based on the National Osteoporosis Foundation Guidelines, pharmacologic treatment should be initiated in any of the following, unless clinical conditions suggest otherwise: * Any patient with prior fragility fracture of the hip or vertebrae. A spine fracture indicates 5X risk for subsequent spine fracture and 2X risk for subsequent hip fracture. * Osteoporosis (T-score <-2.5). * Postmenopausal women and men age 50 and older with low bone mass/osteopenia (T-score between -1.0 and -2.5) by DXA and 10-year major osteoporotic fracture greater than 20% or a 10-year probability of hip fracture greater than 3%. These fracture risks are supplied above in the FRAX score, if applicable. * Clinician judgement and/or patient preferences may indicate treatment for people with 10-year fracture probabilities above or below these levels. Dictated by: Dictated on workstation # [id number]
== END ==
LOC: RAD 08:25
PROVIDERS: ATTEND Internal Medicine Hematology & Oncology
DX: Z13.820 Encounter for screening for osteoporosis (principal); C50.312 Malignant neoplasm of lower-inner quadrant of left female breast; M81.0 Age-related osteoporosis without current pathological fracture; M85.89 Other specified disorders of bone density and structure, multiple sites; Z78.0 Asymptomatic menopausal state
CPT/HCPCS: 77080

== ENCOUNTER 2018-08-13 09:55 | Outpatient (RCR) | payer OTHER ==
[~2018-08-13 09:55] MED LIST changes: +DENOSUMAB 60 MG/1 ML (PROLIA) CANCER CTR SQ SCH; +LOSA25TA41 PO; -LOSA25TA6 PO
[2018-08-13 10:12] LABS: BASOPHILS # (AUTO) 0.1 10^3/uL (0.0-0.1); BASOPHILS % (AUTO) 1 % (0-10); EOSINOPHILS # (AUTO) 0.1 10^3/uL (0.0-0.3); EOSINOPHILS % (AUTO) 3 % (0-10); HEMATOCRIT 42 % (35-52); HEMOGLOBIN 14.4 G/DL (11.5-16.0); LYMPHOCYTES # (AUTO) 1.2 X 10^3 (1.0-4.0); LYMPHOCYTES % (AUTO) 27 % (12-44); MEAN CORPUSCULAR HEMOGLOBIN 31 PG (25-34); MEAN CORPUSCULAR HGB CONC 34 G/DL (32-36); MEAN CORPUSCULAR VOLUME 92 FL (80-99); MEAN PLATELET VOLUME 8.9 FL (7.4-10.4); MONOCYTES # (AUTO) 0.4 X 10^3 (0.0-1.0); MONOCYTES % (AUTO) 8 % (0-12); NEUTROPHILS # (AUTO) 2.7 X 10^3 (1.8-7.8); NEUTROPHILS % (AUTO) 61 % (42-75); PLATELET COUNT 246 10^3/uL (130-400); RED CELL DISTRIBUTION WIDTH 12.5 % (10.0-14.5); WHITE BLOOD COUNT 4.4 10^3/uL (4.3-11.0)
[2018-08-13 10:32] LABS: ALANINE AMINOTRANSFERASE 30 U/L (0-55); ALBUMIN 4.2 GM/DL (3.2-4.5); ALKALINE PHOSPHATASE 64 U/L (40-136); BILIRUBIN,TOTAL 0.6 MG/DL (0.1-1.0); BUN/CREATININE RATIO 15; CARBON DIOXIDE 24 MMOL/L (21-32); CHLORIDE 104 MMOL/L (98-107); CREATININE SERUM 0.91 MG/DL (0.60-1.30); GFR ESTIMATED > 60; GLUCOSE 102 MG/DL (70-105); POTASSIUM 4.3 MMOL/L (3.6-5.0); SODIUM 137 MMOL/L (135-145); TOTAL PROTEIN 7.2 GM/DL (6.4-8.2)
== END 2018-11-11 | disposition home or self-care (01) ==
LOC: ONC 09:55
PROVIDERS: ATTEND Internal Medicine Hematology & Oncology
DX: C50.312 Malignant neoplasm of lower-inner quadrant of left female breast (principal); M81.0 Age-related osteoporosis without current pathological fracture; N64.89 Other specified disorders of breast; I10 Essential (primary) hypertension; R00.0 Tachycardia, unspecified; Z17.0 Estrogen receptor positive status [ER+]; Z79.811 Long term (current) use of aromatase inhibitors; Z79.899 Other long term (current) drug therapy; Z92.3 Personal history of irradiation
CPT/HCPCS: 36415; 80053; 85025; 96372; 99213

== ENCOUNTER → 2018-11-20 | Outpatient (CLI) | payer OTHER ==
[~2018-11-20] MED LIST changes: -DENOSUMAB 60 MG/1 ML (PROLIA) CANCER CTR SQ SCH
--- NOTE | 2018-11-20 19:28 | Diagnostic Imaging Report ---
INDICATION: Screening. The current study was also evaluated with a Computer Aided Detection (CAD) system. Comparison made with prior examination from 11/19/2017 back through 09/22/2013. 3D tomosynthesis was performed and reviewed. FINDINGS: The fibroglandular tissue is heterogeneously dense bilaterally. There is an unchanged well-circumscribed density in the posteromedial left breast. This appears to have been previously biopsied as there is a surgical clip immediately adjacent to it. There are few benign-type calcifications. There is no other dominant mass, spiculated lesion, or suspicious calcification identified. The skin, nipples, and axillae are unremarkable. IMPRESSION: Benign. ACR BI-RADS Category 2: Benign findings. Result letter will be mailed to the patient. Note: At least 10% of breast cancer is not imaged by mammography. Dictated by: Dictated on workstation # [id number]
== END ==
LOC: RAD 09:33
PROVIDERS: ATTEND Internal Medicine Hematology & Oncology
DX: Z12.31 Encounter for screening mammogram for malignant neoplasm of breast (principal); N64.89 Other specified disorders of breast
CPT/HCPCS: 77067

== ENCOUNTER 2019-02-19 10:00 | Outpatient (RCR) | payer OTHER ==
[2019-02-19 10:16] LABS: BASOPHILS # (AUTO) 0.1 10^3/uL (0.0-0.1); BASOPHILS % (AUTO) 1 % (0-10); EOSINOPHILS # (AUTO) 0.1 10^3/uL (0.0-0.3); EOSINOPHILS % (AUTO) 1 % (0-10); HEMATOCRIT 44 % (35-52); HEMOGLOBIN 14.8 G/DL (11.5-16.0); LYMPHOCYTES # (AUTO) 1.4 X 10^3 (1.0-4.0); LYMPHOCYTES % (AUTO) 28 % (12-44); MEAN CORPUSCULAR HEMOGLOBIN 31 PG (25-34); MEAN CORPUSCULAR HGB CONC 34 G/DL (32-36); MEAN CORPUSCULAR VOLUME 92 FL (80-99); MONOCYTES # (AUTO) 0.5 X 10^3 (0.0-1.0); MONOCYTES % (AUTO) 11 % (0-12); NEUTROPHILS # (AUTO) 2.9 X 10^3 (1.8-7.8); NEUTROPHILS % (AUTO) 59 % (42-75); PLATELET COUNT 253 10^3/uL (130-400); RED CELL DISTRIBUTION WIDTH 12.8 % (10.0-14.5)
[2019-02-19 10:41] LABS: ALANINE AMINOTRANSFERASE 19 U/L (0-55); ALBUMIN 4.6 GM/DL (3.2-4.5); ALKALINE PHOSPHATASE 53 U/L (40-136); BILIRUBIN,TOTAL 0.5 MG/DL (0.1-1.0); BUN/CREATININE RATIO 19; CALCIUM 9.7 MG/DL (8.5-10.1); CARBON DIOXIDE 24 MMOL/L (21-32); CHLORIDE 104 MMOL/L (98-107); CREATININE SERUM 0.83 MG/DL (0.60-1.30); GFR ESTIMATED > 60; GLUCOSE 95 MG/DL (70-105); POTASSIUM 4.3 MMOL/L (3.6-5.0); SODIUM 139 MMOL/L (135-145); TOTAL PROTEIN 7.8 GM/DL (6.4-8.2)
[2019-02-19] MEDS ORDERED: DENOSUMAB 60 MG/1 ML (PROLIA) CANCER CTR SQ SCH (11:45)
== END 2019-05-20 | disposition home or self-care (01) ==
LOC: ONC 10:00
PROVIDERS: ATTEND Internal Medicine Hematology & Oncology
DX: C50.312 Malignant neoplasm of lower-inner quadrant of left female breast (principal); M85.80 Other specified disorders of bone density and structure, unspecified site; I10 Essential (primary) hypertension; Z17.0 Estrogen receptor positive status [ER+]; Z79.811 Long term (current) use of aromatase inhibitors; Z79.899 Other long term (current) drug therapy; Z92.3 Personal history of irradiation; Z80.3 Family history of malignant neoplasm of breast; Z82.62 Family history of osteoporosis
CPT/HCPCS: 36415; 80053; 85025; 96372

== ENCOUNTER → 2019-08-10 | Outpatient (CLI) | payer OTHER ==
--- NOTE | 2019-08-10 09:18 | Diagnostic Imaging Report ---
INDICATION: Postmenopausal screening for osteoporosis. COMPARISON: 08/06/2018. FINDINGS: AP Spine L1-L4: [BMD (g/cm2): 0.982] [T-Score: -1.8] [Z-Score: -1.2] [BMD Previous: 0.923] [BMD % Change: 6.4] LT Hip Neck: [BMD (g/cm2): 0.921] [T-Score: -0.8] [Z-Score: 0.1] LT Hip Total: [BMD (g/cm2):0.957] [T-Score:-0.4] [Z-Score: 0.1] [BMD Previous: 0.952] [BMD % Change: 0.5] RT Hip Neck: [BMD (g/cm2):0.886] [T-Score:-1.1] [Z-Score:-0.2] RT Hip Total: [BMD (g/cm2):0.911] [T-score:-0.8] [Z-Score:-0.2] [BMD Previous:0.901] [BMD % Change:1.1] *Indicates significant change from prior examination based on 95% confidence level. World Health Organization criteria for BMD interpretation classify patients as Normal (T-score at or above -1.0), Osteopenic (T-score between -1.0 and -2.5) or Osteoporotic (T-score at or below -2.5). LIMITATIONS AND MODIFICATION: None. FRACTURE RISK (FRAX SCORE): The ten year probability of (%): Major Osteoporotic Fracture: [NA] Hip Fracture: [NA] IMPRESSION: 1. Osteopenia (Low bone mass). 2. No significant change in bone mineral density since prior examination. 3. See below National Osteoporosis Foundation guidelines on when to potentially initiate pharmacologic therapy. Based on the National Osteoporosis Foundation Guidelines, pharmacologic treatment should be initiated in any of the following, unless clinical conditions suggest otherwise: * Any patient with prior fragility fracture of the hip or vertebrae. A spine fracture indicates 5X risk for subsequent spine fracture and 2X risk for subsequent hip fracture. * Osteoporosis (T-score <-2.5). * Postmenopausal women and men age 50 and older with low bone mass/osteopenia (T-score between -1.0 and -2.5) by DXA and 10-year major osteoporotic fracture greater than 20% or a 10-year probability of hip fracture greater than 3%. These fracture risks are supplied above in the FRAX score, if applicable. * Clinician judgement and/or patient preferences may indicate treatment for people with 10-year fracture probabilities above or below these levels. Dictated by: Dictated on workstation # [id number]
== END ==
LOC: RAD 08:31
PROVIDERS: ATTEND Internal Medicine Hematology & Oncology
DX: M81.0 Age-related osteoporosis without current pathological fracture (principal); C50.312 Malignant neoplasm of lower-inner quadrant of left female breast
CPT/HCPCS: 77080

== ENCOUNTER 2019-08-20 10:04 | Outpatient (RCR) | payer BC, OTHER ==
[~2019-08-20 10:04] MED LIST changes: -METO-387 PO; +MTP25TSR PO
[2019-08-20 10:22] LABS: BASOPHILS # (AUTO) 0.1 10^3/uL (0.0-0.1); BASOPHILS % (AUTO) 2 % (0-10); EOSINOPHILS # (AUTO) 0.2 10^3/uL (0.0-0.3); EOSINOPHILS % (AUTO) 4 % (0-10); HEMATOCRIT 43 % (35-52); HEMOGLOBIN 14.6 G/DL (11.5-16.0); LYMPHOCYTES # (AUTO) 1.3 X 10^3 (1.0-4.0); LYMPHOCYTES % (AUTO) 28 % (12-44); MEAN CORPUSCULAR HEMOGLOBIN 31 PG (25-34); MEAN CORPUSCULAR HGB CONC 34 G/DL (32-36); MEAN CORPUSCULAR VOLUME 92 FL (80-99); MEAN PLATELET VOLUME 8.8 FL (7.4-10.4); MONOCYTES # (AUTO) 0.5 X 10^3 (0.0-1.0); MONOCYTES % (AUTO) 10 % (0-12); NEUTROPHILS # (AUTO) 2.7 X 10^3 (1.8-7.8); NEUTROPHILS % (AUTO) 56 % (42-75); PLATELET COUNT 244 10^3/uL (130-400); RED CELL DISTRIBUTION WIDTH 12.7 % (10.0-14.5); WHITE BLOOD COUNT 4.7 10^3/uL (4.3-11.0)
[2019-08-20 10:42] LABS: ALANINE AMINOTRANSFERASE 19 U/L (0-55); ALBUMIN 4.3 GM/DL (3.2-4.5); ALKALINE PHOSPHATASE 58 U/L (40-136); BILIRUBIN,TOTAL 0.5 MG/DL (0.1-1.0); BUN/CREATININE RATIO 17; CALCIUM 9.1 MG/DL (8.5-10.1); CARBON DIOXIDE 25 MMOL/L (21-32); CHLORIDE 106 MMOL/L (98-107); CREATININE SERUM 0.83 MG/DL (0.60-1.30); GFR ESTIMATED > 60; GLUCOSE 99 MG/DL (70-105); POTASSIUM 4.2 MMOL/L (3.6-5.0); SODIUM 139 MMOL/L (135-145); TOTAL PROTEIN 7.2 GM/DL (6.4-8.2)
[2019-08-20] MEDS ORDERED: DENOSUMAB 60 MG/1 ML (PROLIA) CANCER CTR SQ SCH (11:15)
== END 2019-11-18 | disposition home or self-care (01) ==
LOC: ONC 10:04
PROVIDERS: ATTEND Internal Medicine Hematology & Oncology
DX: C50.312 Malignant neoplasm of lower-inner quadrant of left female breast (principal); M85.88 Other specified disorders of bone density and structure, other site; I10 Essential (primary) hypertension; N64.89 Other specified disorders of breast; N95.1 Menopausal and female climacteric states; Z79.899 Other long term (current) drug therapy; Z92.3 Personal history of irradiation; Z80.3 Family history of malignant neoplasm of breast; Z82.62 Family history of osteoporosis; Z17.0 Estrogen receptor positive status [ER+]; Z79.811 Long term (current) use of aromatase inhibitors
CPT/HCPCS: 80053; 85025; 96372

== ENCOUNTER → 2019-08-20 | Outpatient (CLI) | payer BC ==
[2019-08-20 10:23] LABS: BASOPHILS # (AUTO) 0.1 10^3/uL (0.0-0.1); BASOPHILS % (AUTO) 2 % (0-10); EOSINOPHILS # (AUTO) 0.2 10^3/uL (0.0-0.3); EOSINOPHILS % (AUTO) 4 % (0-10); HEMATOCRIT 43 % (35-52); HEMOGLOBIN 14.6 G/DL (11.5-16.0); LYMPHOCYTES # (AUTO) 1.3 X 10^3 (1.0-4.0); LYMPHOCYTES % (AUTO) 28 % (12-44); MEAN CORPUSCULAR HEMOGLOBIN 31 PG (25-34); MEAN CORPUSCULAR HGB CONC 34 G/DL (32-36); MEAN CORPUSCULAR VOLUME 92 FL (80-99); MEAN PLATELET VOLUME 8.8 FL (7.4-10.4); MONOCYTES # (AUTO) 0.5 X 10^3 (0.0-1.0); MONOCYTES % (AUTO) 10 % (0-12); NEUTROPHILS # (AUTO) 2.7 X 10^3 (1.8-7.8); NEUTROPHILS % (AUTO) 56 % (42-75); PLATELET COUNT 244 10^3/uL (130-400); RED CELL DISTRIBUTION WIDTH 12.7 % (10.0-14.5); WHITE BLOOD COUNT 4.7 10^3/uL (4.3-11.0)
[2019-08-20 10:59] LABS: ALANINE AMINOTRANSFERASE 19 U/L (0-55); ALBUMIN 4.3 GM/DL (3.2-4.5); ALKALINE PHOSPHATASE 60 U/L (40-136); BILIRUBIN,TOTAL 0.5 MG/DL (0.1-1.0); BUN/CREATININE RATIO 17; CALCIUM 9.2 MG/DL (8.5-10.1); CARBON DIOXIDE 24 MMOL/L (21-32); CHLORIDE 106 MMOL/L (98-107); CHOLESTEROL 278 MG/DL (< 200); CREATININE SERUM 0.83 MG/DL (0.60-1.30); GFR ESTIMATED > 60; GLUCOSE 99 MG/DL (70-105); HDL CHOLESTEROL 71 MG/DL (40-60); POTASSIUM 4.2 MMOL/L (3.6-5.0); SODIUM 139 MMOL/L (135-145); TOTAL PROTEIN 7.3 GM/DL (6.4-8.2); TRIGLYCERIDES 124 MG/DL (<150); VLDL CHOLESTEROL 25 MG/DL (5-40)
== END ==
LOC: LAB 10:12
PROVIDERS: ATTEND Family Medicine
DX: Z00.00 Encounter for general adult medical examination without abnormal findings (principal); I10 Essential (primary) hypertension; Z79.899 Other long term (current) drug therapy
CPT/HCPCS: 36415; 80053; 80061; 84443; 85025

== ENCOUNTER → 2019-12-22 | Outpatient (CLI) | payer BC ==
--- NOTE | 2019-12-22 12:30 | Diagnostic Imaging Report ---
INDICATION: Routine screening. Comparison is made with prior mammogram 11/20/2018 and 11/19/2017. 2-D and 3-D bilateral screening mammography was performed with CAD. Both breasts remain heterogeneously dense, limiting the sensitivity of mammography. Biopsy changes in the medial left breast are again noted. The parenchymal pattern is stable. No new mass or malignant appearing microcalcifications are seen. The rounded density in the far posterior medial left breast appears stable. The axillae are unremarkable. IMPRESSION: BI-RADS Category 2 No mammographic features suspicious for malignancy are identified. ACR BI-RADS Category 2: Benign findings. Result letter will be mailed to the patient. Note: At least 10% of breast cancer is not imaged by mammography. Dictated by: Dictated on workstation # [id number]
== END ==
LOC: RAD 09:54
PROVIDERS: ATTEND Internal Medicine Hematology & Oncology
DX: Z12.31 Encounter for screening mammogram for malignant neoplasm of breast (principal); C50.312 Malignant neoplasm of lower-inner quadrant of left female breast
CPT/HCPCS: 77063; 77067

== ENCOUNTER → 2020-02-18 | Outpatient (CLI) | payer BC ==
[~2020-02-18] MED LIST changes: +DENOSUMAB 60 MG/1 ML (PROLIA) CANCER CTR SQ SCH
[2020-02-18 11:11] LABS: BASOPHILS # (AUTO) 0.1 10^3/uL (0.0-0.1); BASOPHILS % (AUTO) 1 % (0-10); EOSINOPHILS # (AUTO) 0.2 10^3/uL (0.0-0.3); EOSINOPHILS % (AUTO) 3 % (0-10); HEMATOCRIT 42 % (35-52); HEMOGLOBIN 14.3 G/DL (11.5-16.0); LYMPHOCYTES # (AUTO) 1.1 X 10^3 (1.0-4.0); LYMPHOCYTES % (AUTO) 21 % (12-44); MEAN CORPUSCULAR HEMOGLOBIN 32 PG (25-34); MEAN CORPUSCULAR HGB CONC 34 G/DL (32-36); MEAN CORPUSCULAR VOLUME 93 FL (80-99); MEAN PLATELET VOLUME 9.1 FL (7.4-10.4); MONOCYTES # (AUTO) 0.5 X 10^3 (0.0-1.0); MONOCYTES % (AUTO) 9 % (0-12); NEUTROPHILS # (AUTO) 3.3 X 10^3 (1.8-7.8); NEUTROPHILS % (AUTO) 65 % (42-75); PLATELET COUNT 237 10^3/uL (130-400); RED CELL DISTRIBUTION WIDTH 12.9 % (10.0-14.5); WHITE BLOOD COUNT 5.1 10^3/uL (4.3-11.0)
[2020-02-18 11:34] LABS: ALANINE AMINOTRANSFERASE 22 U/L (0-55); ALBUMIN 4.3 GM/DL (3.2-4.5); ALKALINE PHOSPHATASE 65 U/L (40-136); BILIRUBIN,TOTAL 0.6 MG/DL (0.1-1.0); BUN/CREATININE RATIO 25; CALCIUM 9.8 MG/DL (8.5-10.1); CARBON DIOXIDE 23 MMOL/L (21-32); CHLORIDE 104 MMOL/L (98-107); CREATININE SERUM 0.85 MG/DL (0.60-1.30); GFR ESTIMATED > 60; GLUCOSE 90 MG/DL (70-105); SODIUM 138 MMOL/L (135-145); TOTAL PROTEIN 7.5 GM/DL (6.4-8.2)
== END ==
LOC: EDSTATUS 11-19 13:10 → ONC 10:57
PROVIDERS: ATTEND Internal Medicine Hematology & Oncology
DX: C50.912 Malignant neoplasm of unspecified site of left female breast (principal); N64.89 Other specified disorders of breast; M85.80 Other specified disorders of bone density and structure, unspecified site; I10 Essential (primary) hypertension; Z78.0 Asymptomatic menopausal state
CPT/HCPCS: 80053; 85025; 96372; G0463

== ENCOUNTER → 2020-08-01 | Outpatient (CLI) | payer BC ==
[~2020-08-01] MED LIST changes: -DENOSUMAB 60 MG/1 ML (PROLIA) CANCER CTR SQ SCH
--- NOTE | 2020-08-01 14:33 | Diagnostic Imaging Report ---
INDICATION: Postmenopausal pulsatile screening COMPARISON: 08/10/2019 FINDINGS: AP Spine L1-L4: [BMD (g/cm2): 0.978] [T-Score: -1.9] [Z-Score: -1.2] [BMD Previous: 0.982] [BMD % Change: -0.4] LT Hip Neck: [BMD (g/cm2): 0.933] [T-Score: -0.8] [Z-Score: 0.2] LT Hip Total: [BMD (g/cm2):0.945] [T-Score:-0.5] [Z-Score: 0.1] [BMD Previous: 0.957] [BMD % Change: -1.3] RT Hip Neck: [BMD (g/cm2):0.856] [T-Score:-1.3] [Z-Score:-0.4] RT Hip Total: [BMD (g/cm2):0.899] [T-score:-0.9] [Z-Score:-0.3] [BMD Previous:0.911] [BMD % Change:-1.3] *Indicates significant change from prior examination based on 95% confidence level. World Health Organization criteria for BMD interpretation classify patients as Normal (T-score at or above -1.0), Osteopenic (T-score between -1.0 and -2.5) or Osteoporotic (T-score at or below -2.5). LIMITATIONS AND MODIFICATION: None. FRACTURE RISK (FRAX SCORE): The ten year probability of (%): Major Osteoporotic Fracture: [NA] Hip Fracture: [NA] IMPRESSION: 1. Osteopenia (Low bone mass). 2. No significant change in bone mineral density since prior examination. 3. See below National Osteoporosis Foundation guidelines on when to potentially initiate pharmacologic therapy. Based on the National Osteoporosis Foundation Guidelines, pharmacologic treatment should be initiated in any of the following, unless clinical conditions suggest otherwise: * Any patient with prior fragility fracture of the hip or vertebrae. A spine fracture indicates 5X risk for subsequent spine fracture and 2X risk for subsequent hip fracture. * Osteoporosis (T-score <-2.5). * Postmenopausal women and men age 50 and older with low bone mass/osteopenia (T-score between -1.0 and -2.5) by DXA and 10-year major osteoporotic fracture greater than 20% or a 10-year probability of hip fracture greater than 3%. These fracture risks are supplied above in the FRAX score, if applicable. * Clinician judgement and/or patient preferences may indicate treatment for people with 10-year fracture probabilities above or below these levels. Dictated by: Dictated on workstation # [id number]
== END ==
LOC: RAD 12:30
PROVIDERS: ATTEND Internal Medicine Hematology & Oncology
DX: Z13.820 Encounter for screening for osteoporosis (principal); M81.0 Age-related osteoporosis without current pathological fracture; M85.89 Other specified disorders of bone density and structure, multiple sites; C50.312 Malignant neoplasm of lower-inner quadrant of left female breast; Z79.811 Long term (current) use of aromatase inhibitors; Z78.0 Asymptomatic menopausal state
CPT/HCPCS: 77080

== ENCOUNTER 2020-08-29 13:56 | Outpatient (RCR) | payer BC ==
[~2020-08-29 13:56] MED LIST changes: +DENOSUMAB 60 MG/1 ML (PROLIA) CANCER CTR SQ SCH
[2020-08-29 14:02] LABS: BASOPHILS # (AUTO) 0.1 10^3/uL (0.0-0.1); BASOPHILS % (AUTO) 1 % (0-10); EOSINOPHILS # (AUTO) 0.2 10^3/uL (0.0-0.3); EOSINOPHILS % (AUTO) 4 % (0-10); HEMATOCRIT 42 % (35-52); HEMOGLOBIN 14.4 g/dL (11.5-16.0); LYMPHOCYTES # (AUTO) 1.7 10^3/uL (1.0-4.0); LYMPHOCYTES % (AUTO) 32 % (12-44); MEAN CORPUSCULAR HEMOGLOBIN 31 pg (25-34); MEAN CORPUSCULAR HGB CONC 34 g/dL (32-36); MEAN CORPUSCULAR VOLUME 92 fL (80-99); MEAN PLATELET VOLUME 9.3 fL (9.0-12.2); MONOCYTES # (AUTO) 0.5 10^3/uL (0.0-1.0); MONOCYTES % (AUTO) 10 % (0-12); NEUTROPHILS # (AUTO) 2.7 10^3/uL (1.8-7.8); NEUTROPHILS % (AUTO) 52 % (42-75); PLATELET COUNT 227 10^3/uL (130-400); WHITE BLOOD COUNT 5.2 10^3/uL (4.3-11.0)
[2020-08-29 14:26] LABS: ALANINE AMINOTRANSFERASE 21 U/L (0-55); ALBUMIN 4.2 GM/DL (3.2-4.5); ALKALINE PHOSPHATASE 51 U/L (40-136); BILIRUBIN,TOTAL 0.3 MG/DL (0.1-1.0); BUN/CREATININE RATIO 13; CALCIUM 9.3 MG/DL (8.5-10.1); CARBON DIOXIDE 21 MMOL/L (21-32); CHLORIDE 109 MMOL/L (98-107); CREATININE SERUM 0.82 MG/DL (0.60-1.30); GFR ESTIMATED > 60; GLUCOSE 96 MG/DL (70-105); POTASSIUM 4.2 MMOL/L (3.6-5.0); SODIUM 139 MMOL/L (135-145); TOTAL PROTEIN 7.3 GM/DL (6.4-8.2)
== END 2020-11-27 | disposition home or self-care (01) ==
LOC: ONC 13:56
PROVIDERS: ATTEND Internal Medicine Hematology & Oncology
DX: C50.312 Malignant neoplasm of lower-inner quadrant of left female breast (principal); M85.80 Other specified disorders of bone density and structure, unspecified site; I10 Essential (primary) hypertension; Z90.12 Acquired absence of left breast and nipple; Z92.3 Personal history of irradiation; Z98.890 Other specified postprocedural states; Z80.3 Family history of malignant neoplasm of breast; Z80.0 Family history of malignant neoplasm of digestive organs
CPT/HCPCS: 80053; 82306; 85025; 96372; G0463

== ENCOUNTER → 2020-12-22 | Outpatient (CLI) | payer BC ==
[~2020-12-22] MED LIST changes: -DENOSUMAB 60 MG/1 ML (PROLIA) CANCER CTR SQ SCH
--- NOTE | 2020-12-22 17:29 | Diagnostic Imaging Report ---
INDICATION: Routine screening. Comparison is made with prior mammogram from 12/22/2019 and 11/20/2018. 2-D and 3-D bilateral screening mammography was performed with CAD. Both breasts are heterogeneously dense, limiting the sensitivity of mammography. Biopsy clip in the medial posterior left breast is again noted. No new mass or malignant appearing microcalcifications are seen. Axillae demonstrate some clips in the left axilla. Right axilla is unremarkable. IMPRESSION: BI-RADS Category 2 No mammographic features suspicious for malignancy are identified. ACR BI-RADS Category 2: Benign findings. Result letter will be mailed to the patient. Note: At least 10% of breast cancer is not imaged by mammography. Dictated by: Dictated on workstation # [id number]
== END ==
LOC: RAD 09:00
PROVIDERS: ATTEND Nurse Practitioner Adult Health
DX: Z12.31 Encounter for screening mammogram for malignant neoplasm of breast (principal)
CPT/HCPCS: 77063; 77067

== ENCOUNTER 2021-02-27 13:54 | Outpatient (RCR) | payer BC ==
[~2021-02-27 13:54] MED LIST changes: +DENOSUMAB 60 MG/1 ML (PROLIA) CANCER CTR SQ SCH
[2021-02-27 14:08] LABS: BASOPHILS # (AUTO) 0.1 10^3/uL (0.0-0.1); BASOPHILS % (AUTO) 1 % (0-10); EOSINOPHILS # (AUTO) 0.2 10^3/uL (0.0-0.3); EOSINOPHILS % (AUTO) 2 % (0-10); HEMATOCRIT 45 % (35-52); HEMOGLOBIN 15.1 g/dL (11.5-16.0); LYMPHOCYTES # (AUTO) 1.3 10^3/uL (1.0-4.0); LYMPHOCYTES % (AUTO) 20 % (12-44); MEAN CORPUSCULAR HEMOGLOBIN 31 pg (25-34); MEAN CORPUSCULAR HGB CONC 33 g/dL (32-36); MEAN CORPUSCULAR VOLUME 94 fL (80-99); MEAN PLATELET VOLUME 8.8 fL (9.0-12.2); MONOCYTES # (AUTO) 0.6 10^3/uL (0.0-1.0); MONOCYTES % (AUTO) 10 % (0-12); NEUTROPHILS # (AUTO) 4.2 10^3/uL (1.8-7.8); NEUTROPHILS % (AUTO) 66 % (42-75); PLATELET COUNT 251 10^3/uL (130-400); WHITE BLOOD COUNT 6.3 10^3/uL (4.3-11.0)
[2021-02-27 14:24] LABS: ALANINE AMINOTRANSFERASE 32 U/L (0-55); ALBUMIN 4.3 GM/DL (3.2-4.5); ALKALINE PHOSPHATASE 65 U/L (40-136); BILIRUBIN,TOTAL 0.5 MG/DL (0.1-1.0); BUN/CREATININE RATIO 21; CALCIUM 9.6 MG/DL (8.5-10.1); CARBON DIOXIDE 26 MMOL/L (21-32); CHLORIDE 104 MMOL/L (98-107); CREATININE SERUM 0.89 MG/DL (0.60-1.30); GFR ESTIMATED > 60; GLUCOSE 95 MG/DL (70-105); POTASSIUM 4.3 MMOL/L (3.6-5.0); SODIUM 138 MMOL/L (135-145); TOTAL PROTEIN 7.5 GM/DL (6.4-8.2)
== END 2021-05-28 | disposition home or self-care (01) ==
LOC: ONC 13:54
PROVIDERS: ATTEND Internal Medicine Hematology & Oncology
DX: C50.312 Malignant neoplasm of lower-inner quadrant of left female breast (principal); M85.80 Other specified disorders of bone density and structure, unspecified site; I10 Essential (primary) hypertension; E66.9 Obesity, unspecified; Z90.12 Acquired absence of left breast and nipple; Z92.3 Personal history of irradiation; Z98.890 Other specified postprocedural states; Z80.3 Family history of malignant neoplasm of breast; Z80.0 Family history of malignant neoplasm of digestive organs
CPT/HCPCS: 80053; 85025; G0463; 99213

== ENCOUNTER → 2021-12-24 | Outpatient (CLI) | payer BC ==
[~2021-12-24] MED LIST changes: -DENOSUMAB 60 MG/1 ML (PROLIA) CANCER CTR SQ SCH
--- NOTE | 2021-12-24 16:04 | Diagnostic Imaging Report ---
INDICATION: Routine screening. COMPARISON: 12/22/2020 and 12/22/2019. TECHNIQUE: 2D and 3D bilateral screening mammography was performed with CAD. FINDINGS: Both breasts are heterogeneously dense, limiting the sensitivity of mammography. Biopsy changes in the medial left breast are again noted. There are surgical clips in the left axilla. No mass or malignant-appearing microcalcifications are seen. There are benign calcifications present. IMPRESSION: No mammographic features suspicious for malignancy are identified. ACR BI-RADS Category 2: Benign findings. Result letter will be mailed to the patient. Note: At least 10% of breast cancer is not imaged by mammography. Dictated by: Dictated on workstation # [id number]
== END ==
LOC: RAD 10:14
PROVIDERS: ATTEND Internal Medicine Hematology & Oncology
DX: Z12.31 Encounter for screening mammogram for malignant neoplasm of breast (principal); C50.319 Malignant neoplasm of lower-inner quadrant of unspecified female breast
CPT/HCPCS: 77063; 77067

== ENCOUNTER → 2022-03-18 | Outpatient (CLI) | payer BC ==
[2022-03-18 10:13] LABS: BASOPHILS # (AUTO) 0.1 10^3/uL (0.0-0.1); BASOPHILS % (AUTO) 1 % (0-10); EOSINOPHILS # (AUTO) 0.2 10^3/uL (0.0-0.3); EOSINOPHILS % (AUTO) 3 % (0-10); HEMATOCRIT 42 % (35-52); HEMOGLOBIN 14.3 g/dL (11.5-16.0); LYMPHOCYTES % (AUTO) 21 % (12-44); MEAN CORPUSCULAR HEMOGLOBIN 31 pg (25-34); MEAN CORPUSCULAR HGB CONC 34 g/dL (32-36); MEAN CORPUSCULAR VOLUME 92 fL (80-99); MEAN PLATELET VOLUME 9.2 fL (9.0-12.2); MONOCYTES # (AUTO) 0.4 10^3/uL (0.0-1.0); MONOCYTES % (AUTO) 8 % (0-12); NEUTROPHILS # (AUTO) 3.2 10^3/uL (1.8-7.8); NEUTROPHILS % (AUTO) 66 % (42-75); PLATELET COUNT 222 10^3/uL (130-400); WHITE BLOOD COUNT 4.9 10^3/uL (4.3-11.0)
[2022-03-18 10:33] LABS: ALBUMIN 4.1 GM/DL (3.2-4.5); BILIRUBIN,TOTAL 0.7 MG/DL (0.1-1.0); CALCIUM 9.5 MG/DL (8.5-10.1); CREATININE SERUM 0.87 MG/DL (0.60-1.30); TOTAL PROTEIN 7.2 GM/DL (6.4-8.2)
== END ==
LOC: ONC 09:48
PROVIDERS: ATTEND Internal Medicine
DX: C50.312 Malignant neoplasm of lower-inner quadrant of left female breast (principal); M85.80 Other specified disorders of bone density and structure, unspecified site; I10 Essential (primary) hypertension; E66.9 Obesity, unspecified; Z80.3 Family history of malignant neoplasm of breast; Z80.0 Family history of malignant neoplasm of digestive organs
CPT/HCPCS: 80053; 85025; G0463; 36415; 99213

== ENCOUNTER → 2022-08-06 | Outpatient (CLI) | payer BC ==
--- NOTE | 2022-08-06 13:12 | Diagnostic Imaging Report ---
INDICATION: Postmenopausal screening COMPARISON: 08/01/2020 FINDINGS: AP Spine L1-L4: [BMD (g/cm2): 0.941] [T-Score: -2.2] [Z-Score: -1.4] [BMD Previous: 0.978] [BMD % Change: -3.8] LT Hip Neck: [BMD (g/cm2): 0.868] [T-Score: -1.2] [Z-Score: -0.3] LT Hip Total: [BMD (g/cm2):0.921] [T-Score:-0.7] [Z-Score: -0.1] [BMD Previous: 0.945] [BMD % Change: -2.5] RT Hip Neck: [BMD (g/cm2):0.807] [T-Score:-1.7] [Z-Score:-0.7] RT Hip Total: [BMD (g/cm2):0.882] [T-score:-1.0] [Z-Score:-0.4] [BMD Previous:0.899] [BMD % Change:-1.9] *Indicates significant change from prior examination based on 95% confidence level. World Health Organization criteria for BMD interpretation classify patients as Normal (T-score at or above -1.0), Osteopenic (T-score between -1.0 and -2.5) or Osteoporotic (T-score at or below -2.5). LIMITATIONS AND MODIFICATION: None. FRACTURE RISK (FRAX SCORE): The ten year probability of (%): Major Osteoporotic Fracture: [10.0] Hip Fracture: [1.2] IMPRESSION: 1. Osteopenia (Low bone mass). 2. No significant change in bone mineral density since prior examination. 3. See below National Osteoporosis Foundation guidelines on when to potentially initiate pharmacologic therapy. Based on the National Osteoporosis Foundation Guidelines, pharmacologic treatment should be initiated in any of the following, unless clinical conditions suggest otherwise: * Any patient with prior fragility fracture of the hip or vertebrae. A spine fracture indicates 5X risk for subsequent spine fracture and 2X risk for subsequent hip fracture. * Osteoporosis (T-score <-2.5). * Postmenopausal women and men age 50 and older with low bone mass/osteopenia (T-score between -1.0 and -2.5) by DXA and 10-year major osteoporotic fracture greater than 20% or a 10-year probability of hip fracture greater than 3%. These fracture risks are supplied above in the FRAX score, if applicable. * Clinician judgement and/or patient preferences may indicate treatment for people with 10-year fracture probabilities above or below these levels. Dictated by: Dictated on workstation # [id number]
== END ==
LOC: RAD 09:55
PROVIDERS: ATTEND Internal Medicine
DX: M85.89 Other specified disorders of bone density and structure, multiple sites (principal); C50.319 Malignant neoplasm of lower-inner quadrant of unspecified female breast
CPT/HCPCS: 77080

== ENCOUNTER → 2022-12-09 | Outpatient (CLI) | payer BC ==
--- NOTE | 2022-12-09 16:36 | Diagnostic Imaging Report ---
Indication: Left breast carcinoma. Correlation is made with prior mammograms from 12/24/2021 and 12/22/2020. 2-D and 3-D bilateral diagnostic mammography was performed with CAD. Both breasts are heterogeneously dense, limiting sensitivity of mammography. Post-therapeutic changes in the medial left breast are again noted. Both breasts appear to be stable in appearance. No recurrent mass is seen. No malignant-appearing microcalcifications are identified. There are benign calcifications. There are clips in the left axilla. Right axilla is unremarkable. IMPRESSION: BI-RADS Category 2 Stable bilateral mammograms with no mammographic features suspicious for malignancy. ACR BI-RADS Category 2: Benign findings. Result letter will be mailed to the patient. Note: At least 10% of breast cancer is not imaged by mammography. Dictated by: Dictated on workstation # [id number]
== END ==
LOC: RAD 12:28
PROVIDERS: ATTEND Internal Medicine
DX: C50.312 Malignant neoplasm of lower-inner quadrant of left female breast (principal)
CPT/HCPCS: 77066; G0279; 77062

== ENCOUNTER → 2023-03-18 | Outpatient (CLI) | payer BC | END | disposition home or self-care (01) | LOC: ONC 12:53 | PROVIDERS: ATTEND Internal Medicine Hematology & Oncology | DX: Z08 Encounter for follow-up examination after completed treatment for malignant neoplasm (principal); Z85.3 Personal history of malignant neoplasm of breast | CPT/HCPCS: 99214 ==